=== PATIENT | female | born 1975 | race Caucasian/White ===

== ENCOUNTER 2019-07-18 03:13 | Emergency (ER) | payer OTHER, SELFPAY ==
[2019-07-18 03:14] VITALS: BP 148/91; PULSE 83; RESP 18; TEMP 36.4; O2SAT 96; BMI 61.4
--- NOTE | 2019-07-18 03:22 | ED_ITS ---
Entered by Linnea Davenport, acting as scribe for Hugh Fox MD HPI - Abdominal Pain General: Chief Complaint: Abdominal Pain Stated Complaint: ABD PAIN/N/V Time Seen by Provider: 07/18/19 03:20 Source: patient Mode of arrival: ambulatory Limitations: no limitations History of Present Illness: HPI narrative: 44 yo f came to the er with abd pain. Onset was last night. Pt states that she also has been vomiting, bloating and nausea as well. Pt states that she thinks that it is a gallbladder attack. Pt states that the pain is sharp and is located ruq. MD elicited complaint: abdominal pain Onset (ago): day(s) (last night) Pain Consistency: constant Location: RUQ Severity: mild Quality: sharp Radiation: R flank Migration to: no migration Exacerbating factors: nothing Relieving factors: nothing Associated Symptoms: Reports bloating, nausea and vomiting; Denies chills, dysuria and fever(s) Related Data: Date of Last Menstrual Period: 07/15/19 Patient : No Review of Systems General: Reports: other (negative unless marked) Const: Denies: fever, chills, body aches or change in appetite Eyes: Denies: blurry vision or eye discomfort ENMT: Denies: throat pain or dental pain Card: Denies: chest pain Resp: Denies: shortness of breath GI: Reports: abdominal pain, nausea, vomiting and bloating : Denies: painful urination Musc: Denies: neck pain or back pain Skin/Breast: Denies: rash Neuro: Denies: headache Psych: Denies: depression Kvng/Lymph: Denies: easy bruising All/Imm: Denies: hives PFSH ED PFSH: Statuses (acute, chronic, etc) shown below reflect problem list status as previously entered and may not be historically accurate Social History (Updated 07/12/19 @ 14:59 by Jeni Charles LPN) Smoking and tobacco status: former smoker Alcohol intake: current Alcohol intake frequency: holidays/special occasions only Alcohol type: wine Female Reproductive History: Date of last menstrual period: 07/15/19 Physical Exam Const: COMMON NORMALS: no apparent distress, oriented x3 and healthy appearing HENMT: COMMON NORMALS: normocephalic and head/scalp atraumatic HEAD & SCALP: normocephalic and atraumatic Eye: COMMON NORMALS: PERRL and EOMs intact bilaterally PUPIL: Yes PERRL Neck/C-Spine: COMMON NORMALS: full ROM and supple Chest: COMMONS NORMALS: inspection of chest normal and palpation of chest normal Resp: COMMON NORMALS: normal respiratory effort, no retractions, no use of accessory muscles and clear to auscultation bilaterally AUSCULTATION: clear to auscultation bilaterally Cardio: COMMON NORMALS: regular rate, regular rhythm and no murmurs RATE: regular rate RHYTHM: regular rhythm GI: COMMON NORMALS: normal to inspection, nondistended, normoactive bowel sounds, soft to palpation and no masses PALPATION: Yes soft OTHER: RUQ tenderness Extremity: COMMON NORMALS: normal to inspection and full ROM Neuro: COMMON NORMALS: oriented x3, moves all extremities and no focal motor deficits Psych: COMMON NORMALS: mental status grossly normal, thought process normal and cooperative THOUGHT PROCESS: normal thought process Skin: COMMON NORMALS: no rashes or lesions noted and no wounds GENERAL SKIN EXAM: no rashes or lesions noted Course Vital Signs: Vital signs: Vital Signs Temperature 97.5 F L 07/18/19 03:14 Pulse Rate 75 07/18/19 03:50 Respiratory Rate 20 H 07/18/19 03:50 Blood Pressure 148/91 07/18/19 03:14 Pulse Oximetry 95 07/18/19 03:50 MDM - Abdominal Pain MDM Narrative: Medical decision making narrative: Patient presents here with right upper quadrant pain that is likely biliary colic from a gallstone. Patient's pain is now resolved. She has no signs of cholecystitis. Patient is to follow-up with surgery as soon as possible. Patient is stable for discharge and is return if worsening. Lab Data: Labs: Lab Results 07/18/19 07/18/19 Range/Units 04:20 04:20 WBC 11.0 H (4.0-10.0) 10^3/ uL RBC 3.89 L (4.1-5.3) 10^6/u L Hgb 9.1 L (11.5-15.3) g/dL Hct 30.5 L (37.0-47.0) % MCV 78.4 L (81-99) fL MCH 23.4 L (28.0-34.0) pg MCHC 29.8 L (30.0-36.0) g/dL RDW 16.4 H (12.1-15.1) % Plt Count 266 (130-400) 10^3/c mm MPV 10.5 H (7.4-10.4) fL Neut % (Auto) 82.4 % Lymph % (Auto) 11.3 % [place] % (Auto) 3.7 % Eos % (Auto) 1.0 % Baso % (Auto) 0.6 % Neut # (Auto) 9.1 H (1.8-7.7) 10^3/u L Lymph # (Auto) 1.2 (0.8-4.8) 10^3/u L [place] # (Auto) 0.4 (0.2-0.9) 10^3/u L Eos # (Auto) 0.1 (0.0-0.8) 10^3/u L Baso # (Auto) 0.1 (0.0-0.1) 10^3/u L Nucleated RBC % (a uto) 0 % Nucleated RBCs # 0.0 /100WBC Sodium 135 L (136-145) mmol/L Potassium 4.3 (3.5-5.1) mmol/L Chloride 100 (98-107) mmol/L Carbon Dioxide 25 (22-29) mmol/L Anion Gap 14.3 (5-19) BUN 13 (6-20) mg/dL Creatinine 0.5 (0.5-0.9) mg/dL GFR Calculation 133.4 H (90-130) mL/min Glucose 211 H (65-115) mg/dL Calcium 9.4 (8.5-10.5) mg/dL Total Bilirubin 0.2 (0.15-1.2) mg/dL AST 13 (0-32) U/L ALT 19 (0-33) U/L Alkaline Phosphata se 87 (35-105) IU/L Total Protein 7.2 (6.6-8.7) g/dL Albumin 3.4 L (3.5-5.2) g/dL Globulin 3.8 (1.3-4.6) g/dL Lipase 24 (13-60) U/L Imaging Data ^: US: My impression: 2cm galstone at neck of gallbladder Discharge Plan Discharge Patient Disposition: Home, Self-Care Clinical Impression: Abdominal pain Qualifiers: Abdominal location: right upper quadrant Qualified Code(s): R10.11 - Right upper quadrant pain Gallstone Qualifiers: Cholecystitis presence: without cholecystitis Biliary obstruction: without biliary obstruction Qualified Code(s): K80.20 - Calculus of gallbladder without cholecystitis without obstruction Condition: Stable Prescriptions: [place] 5-325 mg tablet 1 tab PO Q6H PRN (Reason: pain) Qty: 14 RF: 0 Zofran 4 mg tablet 4 mg PO QID PRN (Reason: nausea and vomiting) Qty: 14 RF: 0 No Action azithromycin 250 mg tablet See Rx Instructions PO .COMPLEX Qty: 6 RF: 0 Discharge Orders: Discharge Order (Routine); Ordered 07/18/19 Ordered By: Hugh Fox Referrals: , [Primary Care Provider] - Natanael Gan MD [Physician] - 4-7 days Discharge Diet: Advance as tolerated Discharge Activity: Resume usual activity Patient Instructions: Biliary Colic (ED), Abdominal Pain (ED) Coding Level of Care Code ED Blister Rust Eradicator for Chg Fwd The documentation recorded by the Issac sin Stephanie Lyn, accurately reflects the service I personally performed and the decisions made by Dominique smith Korby, MD Jul 18, 2019 03:13
--- NOTE | 2019-07-18 03:24 | US_ITS ---
WS: [id number] RIGHT UPPER QUADRANT ULTRASOUND HISTORY: ruq abd pain COMPARISON: None available. Liver: 25.4 cm in length. Markedly enlarged liver with diffuse hepatic steatosis. Obscuration of the portal vein triads. No bile duct dilatation. Gallbladder: Normally distended gallbladder with a stone in the gallbladder neck measuring 2.4 cm. No pericholecystic fluid or gallbladder wall thickening. CBD: 5.0 mm Pancreas: Normal size and echogenicity. Right kidney: 13.1 cm in length. Normal echogenicity with no mass or hydronephrosis. Aorta and IVC: Unremarkable. No ascites. US/US gall bladder [id number] IMPRESSION: 1. Cholelithiasis without evidence for acute cholecystitis. 2. No bile duct dilatation. 3. Severe hepatic steatosis and hepatomegaly.
[2019-07-18] MEDS: sodium chloride 0.9% 1,000 ML 999 ML IV (03:38)
[2019-07-18] MEDS: ondansetron 2 mg/ML SDV 2 mL 4 MG IVP (03:40)
[2019-07-18 03:50] VITALS: PULSE 75; RESP 20; O2SAT 95
[2019-07-18 04:26] LABS: Basophils # 0.1 10^3/uL (0.0-0.1); Basophils % 0.6 %; Eosinophils # 0.1 10^3/uL (0.0-0.8); Hematocrit 30.5 % (37.0-47.0); Hemoglobin 9.1 g/dL (11.5-15.3); Lymphocytes # 1.2 10^3/uL (0.8-4.8); Lymphocytes % 11.3 %; Mean Corpuscular HGB Conc 29.8 g/dL (30.0-36.0); Mean Corpuscular Hemoglobin 23.4 pg (28.0-34.0); Mean Corpuscular Volume 78.4 fL (81-99); Mean Platelet Volume 10.5 fL (7.4-10.4); Monocytes # 0.4 10^3/uL (0.2-0.9); Monocytes % 3.7 %; Neutrophils # 9.1 10^3/uL (1.8-7.7); Neutrophils % 82.4 %; Nucleated Red Blood Cells % 0 %; Platelet Count 266 10^3/cmm (130-400); Red Blood Count 3.89 10^6/uL (4.1-5.3); Red Cell Distribution Width 16.4 % (12.1-15.1)
[2019-07-18 04:40] LABS: Alanine Aminotransferase 19 U/L (0-33); Albumin Level 3.4 g/dL (3.5-5.2); Alkaline Phosphatase 87 IU/L (35-105); Anion Gap 14.3 (5-19); Aspartate Amino Transferase 13 U/L (0-32); Blood Urea Nitrogen 13 mg/dL (6-20); Calcium 9.4 mg/dL (8.5-10.5); Carbon Dioxide 25 mmol/L (22-29); Chloride 100 mmol/L (98-107); Globulin 3.8 g/dL (1.3-4.6); Glomerular Filtration Rate 133.4 mL/min (90-130); Glucose 211 mg/dL (65-115); Lipase 24 U/L (13-60); Potassium 4.3 mmol/L (3.5-5.1); Sodium 135 mmol/L (136-145); Total Bilirubin 0.2 mg/dL (0.15-1.2); Total Protein 7.2 g/dL (6.6-8.7)
[2019-07-18 05:02] VITALS: PULSE 94; RESP 16; O2SAT 95
--- NOTE | 2019-07-19 11:07 | DCPLANNER ---
video manager had message to schedule a follow up appointment with Chief Cruiser. video manager called the clinic, spoke with Anika, patient has an appointment scheduled for Tuesday July 23, [address] shaye 8:[address] Gan. Clinic will call patient with appointment information.
--- NOTE | 2019-08-07 14:44 | DCPLANNER ---
Patient did attend appointment scheduled for 07.23.[address] Gan.
== END 2019-07-18 05:03 | disposition home or self-care (01) ==
PROVIDERS: Emergency Provider Emergency Medicine
DX: K80.20 Calculus of gallbladder without cholecystitis without obstruction (principal); Z87.891 Personal history of nicotine dependence
CPT/HCPCS: 36415; 76705; 80053; 83690; 85025; 96360; 96361; 96374; 96375; 99283; J2405; J7030

== ENCOUNTER → 2019-08-20 10:25 | Outpatient (BNVA) | payer OTHER, SELFPAY | PROVIDERS: Visit Provider Family Medicine | DX: D50.8 Other iron deficiency anemias (principal); R73.9 Hyperglycemia, unspecified; R03.0 Elevated blood-pressure reading, without diagnosis of hypertension | CPT/HCPCS: 82728; 83036; 83540; 83550 ==

== ENCOUNTER → 2019-10-11 11:08 | Outpatient (BNVA) | payer OTHER, SELFPAY | PROVIDERS: Visit Provider Family Medicine | DX: I10 Essential (primary) hypertension (principal); D50.8 Other iron deficiency anemias; D50.9 Iron deficiency anemia, unspecified; E11.9 Type 2 diabetes mellitus without complications; L91.8 Other hypertrophic disorders of the skin | CPT/HCPCS: 80053; 80061; 82044; 82728; 83550; 85025 ==

== ENCOUNTER → 2019-11-20 10:25 | Outpatient (BNVA) | payer OTHER, SELFPAY | PROVIDERS: PCP Family Medicine; Visit Provider Family Medicine | DX: I10 Essential (primary) hypertension (principal); D50.8 Other iron deficiency anemias; E11.9 Type 2 diabetes mellitus without complications | CPT/HCPCS: 80053; 82044; 82728; 83036; 83550; 85025 ==

== ENCOUNTER 2020-01-05 02:01 | Emergency (ER) | payer SELFPAY ==
[2020-01-05 02:07] VITALS: PULSE 82; RESP 20; TEMP 36.3; O2SAT 97; BMI 55.7
--- NOTE | 2020-01-05 02:07 | USR_ITS ---
PROCEDURE INFORMATION: Exam: US Abdomen, Limited; Right Upper Quadrant Exam date and time: 01/05/2020 3:39 AM Age: 44 years old Clinical indication: Abdominal pain; Acute; Prior surgery; Surgery date: 6+ months; Surgery type: Appendix; Additional info: Ruq pain TECHNIQUE: Imaging protocol: US abdomen. Real time ultrasound with image documentation. Limited exam focused on the right upper quadrant. COMPARISON: US gall bladder [id number] 07/18/2019 4:24 AM FINDINGS: Liver: Hepatic parenchymal echotexture is normal. No visible mass. Gallbladder: There is a 2.6 cm shadowing gallstone in the gallbladder neck. The gallbladder lumen is distended. There is diffuse borderline thickening of the gallbladder wall. No pericholecystic fluid. Sonographic Tejada sign is positive. Common bile duct: The common bile duct is nondilated measuring 5 mm. Pancreas: The visible portion of the pancreas is normal. Right kidney: The right kidney is unremarkable. Aorta: The visible portion of the aorta is unremarkable. US/US gall bladder [id number] IMPRESSION: Distended gallbladder with a borderline thickened wall containing a solitary large stone. Findings are similar to those seen on 07/18/2019. Findings are equivocal for acute cholecystitis.
--- NOTE | 2020-01-05 02:08 | W.ED.ABDPA2 ---
HPI - Abdominal Pain General: Chief Complaint: Abdominal Pain Stated Complaint: r side abd/back pain Time Seen by Provider: 01/05/20 02:04 Source: patient Mode of arrival: ambulatory Limitations: no limitations History of Present Illness: HPI narrative: 44-year-old female who has history gallstones states she has been having right upper quadrant pain over the last 6 hours. States pain is sharp in nature. States she had a gallbladder attack from gallstones earlier in the year. She denies any fever. She has had nausea with no vomiting. Denies any worsening improving factors. MD elicited complaint: abdominal pain Pertinent past history: none Onset (ago): hour(s) Pain Consistency: constant Location: RUQ Severity: moderate Quality: stabbing Radiation: none Migration to: no migration Exacerbating factors: nothing Relieving factors: nothing Associated Symptoms: Denies chills, dysuria and fever(s) Related Data: Date of Last Menstrual Period: 07/15/19 Review of Systems Const: Denies: fever(s), chills, body aches or change in appetite Eyes: Denies: blurry vision or eye discomfort ENMT: Denies: throat pain or dental pain Card: Denies: chest pain Resp: Denies: dyspnea GI: Reports: abdominal pain : Denies: dysuria Musc: Denies: neck pain or back pain Skin/Breast: Denies: rash Neuro: Denies: headache(s) Psych: Denies: depression Kvng/Lymph: Denies: easy bruising All/Imm: Denies: urticaria PFSH ED PFSH: Medical History Arthritis of both knees Benign essential HTN Colon polyps Fatty liver Gallstone Irritable bowel syndrome with constipation and diarrhea Obesity PCOS (polycystic ovarian syndrome) Type 2 diabetes mellitus, without long-term current use of insulin Surgical History History of appendectomy (~2018) History of tonsillectomy and adenoidectomy Family History Father Cancer colon Other CAD (coronary artery disease) Diabetes Denies family history of Anesthesia complication Bleeding disorder Social History Smoking and tobacco status: former smoker Alcohol intake: current Alcohol intake frequency: holidays/special occasions only Alcohol type: wine Adopted: No Caregiver/support person: Yes Lives independently: Yes Household members: none Housing: Apartment Marital status: Single service: No Current occupational exposures/hazards: No Pets and animals: No History of recent travel: No Sexually active: No Current gender identity: Female Emmy/Episcopalian: Evangelical Special emmy needs: No Agree to transfusion: No Financial difficulty paying for basics: Decline to Answer Female Reproductive History: Date of last menstrual period: 07/15/19 Physical Exam Const: COMMON NORMALS: no acute distress, patient oriented x3 and healthy appearing HENMT: COMMON NORMALS: normocephalic and atraumatic HEAD & SCALP: normocephalic and atraumatic Eye: COMMON NORMALS: Equal, round and reactive pupils present and EOMs intact bilaterally PUPIL: Yes Equal, round and reactive pupils present Neck/C-Spine: COMMON NORMALS: full ROM and supple Chest: COMMONS NORMALS: normal inspection of the chest and normal palpation of entire chest wall Resp: COMMON NORMALS: normal respiratory effort, No retractions, No use of accessory muscles and clear to auscultation bilaterally AUSCULTATION: clear to auscultation bilaterally Cardio: COMMON NORMALS: regular rate, regular rhythm and No murmurs present (Cardio) RATE: regular rate RHYTHM: regular rhythm GI: COMMON NORMALS: Normal to inspection, nondistended, normoactive bowel sounds present, Soft to palpation and no masses PALPATION: Yes Soft to palpation and Yes Tenderness to palpation present (GI) Details: RUQ Extremity: COMMON NORMALS: normal to inspection and full ROM Neuro: COMMON NORMALS: patient oriented x3, moves all extremities and no focal motor deficits Psych: COMMON NORMALS: mental status grossly normal, Normal thought process present and cooperative THOUGHT PROCESS: Normal thought process present Skin: COMMON NORMALS: no rashes or lesions noted and no wounds GENERAL SKIN EXAM: no rashes or lesions noted Course Vital Signs: Vital signs: Vital Signs Temperature 97.4 F L 01/05/20 02:07 Pulse Rate 82 01/05/20 02:07 Respiratory Rate 16 01/05/20 02:34 Blood Pressure 136/69 01/05/20 02:10 Pulse Oximetry 92 01/05/20 03:02 MDM - Abdominal Pain MDM Narrative: Medical decision making narrative: Patient presents here with biliary colic ultrasound showed a gallstone in her gallbladder neck. No signs of cholecystitis. Patient has no fever and is well-appearing here. Patient is to follow-up with Dr. Díaz in 2 to 4 days. Will prescribe her hydrocodone for pain and she is to return if worsening. She understands agrees to plan. Lab Data: Labs: Lab Results 01/05/20 01/05/20 Range/Units 02:15 02:15 WBC 15.5 H (4.0-10.0) 10^3/ uL RBC 4.24 (4.1-5.3) 10^6/u L Hgb 11.4 L (11.5-15.3) g/dL Hct 37.0 (37.0-47.0) % MCV 87.3 (81-99) fL MCH 26.9 L (28.0-34.0) pg MCHC 30.8 (30.0-36.0) g/dL RDW 14.5 (12.1-15.1) % Plt Count 291 (130-400) 10^3/c mm MPV 11.2 H (7.4-10.4) fL Neut % (Auto) 81.3 % Lymph % (Auto) 12.3 % [place] % (Auto) 3.4 % Eos % (Auto) 1.2 % Baso % (Auto) 0.6 % Neut # (Auto) 12.55 H (1.8-7.7) 10^3/u L Lymph # (Auto) 1.9 (0.8-4.8) 10^3/u L [place] # (Auto) 0.5 (0.2-0.9) 10^3/u L Eos # (Auto) 0.2 (0.0-0.8) 10^3/u L Baso # (Auto) 0.1 (0.0-0.1) 10^3/u L Nucleated RBC % (a uto) 0 % Nucleated RBCs # 0.0 /100WBC Sodium 138 (136-145) mmol/L Potassium 3.9 (3.5-5.1) mmol/L Chloride 98 (98-107) mmol/L Carbon Dioxide 29 (22-29) mmol/L Anion Gap 14.9 (5-19) BUN 11 (6-20) mg/dL Creatinine 0.5 (0.5-0.9) mg/dL GFR Calculation 133.4 H (90-130) mL/min Glucose 191 H (65-115) mg/dL Calculated Osmolal ity 287 (285-295) mOsm/k g Calcium 8.9 (8.5-10.5) mg/dL Total Bilirubin 0.2 (0.15-1.2) mg/dL AST 16 (0-32) U/L ALT 22 (0-33) U/L Alkaline Phosphata se 94 (35-105) IU/L Total Protein 8.3 (6.6-8.7) g/dL Albumin 4.4 (3.5-5.2) g/dL Globulin 3.9 (1.3-4.6) g/dL Lipase 28 (13-60) U/L Discharge Plan Discharge Patient Disposition: Home Clinical Impression: Gallstone Qualifiers: Cholecystitis presence: without cholecystitis Biliary obstruction: without biliary obstruction Qualified Code(s): K80.20 - Calculus of gallbladder without cholecystitis without obstruction Condition: Stable Prescriptions: [place] 5-325 mg tablet 1 tab PO Q6H PRN (Reason: pain) Qty: 14 RF: 0 ondansetron 4 mg tablet,disintegrating 4 mg PO Q6H PRN (Reason: nausea and vomiting) Qty: 14 RF: 0 No Action atorvastatin 20 mg tablet 20 mg PO .po q hs Qty: 30 RF: 1 lidocaine-epinephrine (PF) 2 %-1:200,000 solution 7 ml Infiltration ONCE PRN (Reason: anesthesia) Qty: 1 RF: 0 povidone-iodine [Betadine Swabsticks] 10 % swab 1 applic topical ONCE PRN (Reason: disinfection) Qty: 1 RF: 0 ferrous sulfate [Feosol] 325 mg (65 mg iron) tablet 325 mg PO BID RF: 0 hydrochlorothiazide 25 mg tablet 25 mg PO DAILY Qty: 90 RF: 1 lisinopril 5 mg tablet 5 mg PO DAILY Qty: 90 RF: 1 Ozempic 0.25 mg or 0.5 mg(2 mg/1.5 mL) pen injector 0.25 mg SUBCUT .weekly Qty: 1.5 RF: 2 Discharge Orders: Discharge Order (Routine); Ordered 01/05/20 Ordered By: Hugh Fox Referrals: Vida Mayer DO [Primary Care Provider] - Discharge Diet: Advance as tolerated Discharge Activity: Resume usual activity Patient Instructions: Biliary Colic (ED) Coding Level of Care Code ED Dinkey Locomotive Engineer for Chg Fwd Exam Comprehensive
[2020-01-05 02:10] VITALS: BP 136/69
[2020-01-05 02:34] VITALS: RESP 16
[2020-01-05] MEDS: morphine 4 mg/mL SDV 1 mL IVP (02:34)
[2020-01-05] MEDS: ondansetron 2 mg/ML SDV 2 mL 4 MG IVP (02:36)
[2020-01-05] MEDS: sodium chloride 0.9% 1,000 ML 999 ML IV (02:36)
[2020-01-05 02:37] LABS: Basophils # 0.1 10^3/uL (0.0-0.1); Basophils % 0.6 %; Eosinophils # 0.2 10^3/uL (0.0-0.8); Eosinophils % 1.2 %; Hemoglobin 11.4 g/dL (11.5-15.3); Lymphocytes # 1.9 10^3/uL (0.8-4.8); Lymphocytes % 12.3 %; Mean Corpuscular HGB Conc 30.8 g/dL (30.0-36.0); Mean Corpuscular Hemoglobin 26.9 pg (28.0-34.0); Mean Corpuscular Volume 87.3 fL (81-99); Mean Platelet Volume 11.2 fL (7.4-10.4); Monocytes # 0.5 10^3/uL (0.2-0.9); Monocytes % 3.4 %; Neutrophils # 12.55 10^3/uL (1.8-7.7); Neutrophils % 81.3 %; Nucleated Red Blood Cells % 0 %; Platelet Count 291 10^3/cmm (130-400); Red Blood Count 4.24 10^6/uL (4.1-5.3); Red Cell Distribution Width 14.5 % (12.1-15.1); White Blood Count 15.5 10^3/uL (4.0-10.0)
[2020-01-05 02:51] VITALS: O2SAT 88
[2020-01-05 02:59] LABS: Alanine Aminotransferase 22 U/L (0-33); Albumin Level 4.4 g/dL (3.5-5.2); Alkaline Phosphatase 94 IU/L (35-105); Anion Gap 14.9 (5-19); Aspartate Amino Transferase 16 U/L (0-32); Blood Urea Nitrogen 11 mg/dL (6-20); Calcium 8.9 mg/dL (8.5-10.5); Carbon Dioxide 29 mmol/L (22-29); Chloride 98 mmol/L (98-107); Globulin 3.9 g/dL (1.3-4.6); Glomerular Filtration Rate 133.4 mL/min (90-130); Glucose 191 mg/dL (65-115); Lipase 28 U/L (13-60); Osmolality Calculated 287 mOsm/kg (285-295); Potassium 3.9 mmol/L (3.5-5.1); Sodium 138 mmol/L (136-145); Total Bilirubin 0.2 mg/dL (0.15-1.2); Total Protein 8.3 g/dL (6.6-8.7)
[2020-01-05 03:02] VITALS: O2SAT 92
[2020-01-05 03:58] VITALS: BP 120/75
--- NOTE | 2020-01-09 09:33 | DCPLANNER ---
manager of internal had message to schedule a follow up appointment for patient with Dr. Díaz. This trimming caser had message from Savanah Gonzalez, stating that she spoke with patient, and patient stated that she would think about referral and would call Savanah back about referral. This trimming caser called patient and was unable to reach patient.
== END 2020-01-05 04:26 | disposition home or self-care (01) ==
PROVIDERS: Emergency Provider Emergency Medicine; PCP Family Medicine
DX: K80.20 Calculus of gallbladder without cholecystitis without obstruction (principal); I10 Essential (primary) hypertension; E11.9 Type 2 diabetes mellitus without complications; Z87.891 Personal history of nicotine dependence
CPT/HCPCS: 12345; 76705; 80053; 83690; 85025; 96361; 96374; 96375; 99283; J2270; J2405; J7030

== ENCOUNTER 2020-02-20 02:33 | Emergency (ER) | payer SELFPAY ==
[2020-02-20 02:40] VITALS: BP 168/98; PULSE 83; RESP 18; TEMP 36.6; O2SAT 93; BMI 56.7
--- NOTE | 2020-02-20 02:53 | W.ED.ABDPA2 ---
HPI - Abdominal Pain General: Chief Complaint: Abdominal Pain Stated Complaint: abd pain/throwing up Time Seen by Provider: 02/20/20 02:39 Source: patient Mode of arrival: ambulatory Limitations: no limitations History of Present Illness: HPI narrative: 44-year-old female states she has a history of gallstones. She states that she woke up this morning at midnight has been having right upper quadrant abdominal pain since then. She states her pain is sharp in nature. States the pain is currently a 7 out of 10. She states she is also had multiple episodes of vomiting. Denies any worsening or improving factors. Denies any fevers. MD elicited complaint: abdominal pain Onset (ago): hour(s) Associated Symptoms: Reports nausea and vomiting; Denies chills, dysuria and fever(s) Related Data: Date of Last Menstrual Period: 02/20/20 Review of Systems Const: Denies: fever(s), chills, body aches or change in appetite Eyes: Denies: blurry vision or eye discomfort ENMT: Denies: throat pain or dental pain Card: Denies: chest pain Resp: Denies: dyspnea GI: Reports: abdominal pain, nausea and vomiting : Denies: dysuria Musc: Denies: neck pain or back pain Skin/Breast: Denies: rash Neuro: Denies: headache(s) Psych: Denies: depression Kvng/Lymph: Denies: easy bruising All/Imm: Denies: urticaria PFS ED PFSH: Medical History (Updated 02/20/20 @ 04:53 by Hugh Fox MD) Arthritis of both knees Benign essential HTN Colon polyps Fatty liver Gallstone Irritable bowel syndrome with constipation and diarrhea Obesity PCOS (polycystic ovarian syndrome) Type 2 diabetes mellitus, without long-term current use of insulin Surgical History History of appendectomy (~2018) History of tonsillectomy and adenoidectomy Family History Father Cancer colon Other CAD (coronary artery disease) Diabetes Denies family history of Anesthesia complication Bleeding disorder Social History Smoking and tobacco status: former smoker Alcohol intake: current Alcohol intake frequency: holidays/special occasions only Alcohol type: wine Adopted: No Caregiver/support person: Yes Lives independently: Yes Household members: none Housing: Apartment Marital status: Single service: No Current occupational exposures/hazards: No Pets and animals: No History of recent travel: No Sexually active: No Current gender identity: Female Emmy/Spiritism: Congregational Special emmy needs: No Agree to transfusion: No Financial difficulty paying for basics: Decline to Answer Female Reproductive History: Date of last menstrual period: 02/20/20 Physical Exam Const: COMMON NORMALS: no acute distress, patient oriented x3 and healthy appearing HENMT: COMMON NORMALS: normocephalic and atraumatic HEAD & SCALP: normocephalic and atraumatic Eye: COMMON NORMALS: Equal, round and reactive pupils present and EOMs intact bilaterally PUPIL: Yes Equal, round and reactive pupils present Neck/C-Spine: COMMON NORMALS: full ROM and supple Chest: COMMONS NORMALS: normal inspection of the chest and normal palpation of entire chest wall Resp: COMMON NORMALS: normal respiratory effort, No retractions, No use of accessory muscles and clear to auscultation bilaterally AUSCULTATION: clear to auscultation bilaterally Cardio: COMMON NORMALS: regular rate, regular rhythm and No murmurs present (Cardio) RATE: regular rate RHYTHM: regular rhythm GI: COMMON NORMALS: Normal to inspection, nondistended, normoactive bowel sounds present, Soft to palpation and no masses PALPATION: Yes Soft to palpation and Yes Tenderness to palpation present (GI) Details: RUQ Extremity: COMMON NORMALS: normal to inspection and full ROM Neuro: COMMON NORMALS: patient oriented x3, moves all extremities and no focal motor deficits Psych: COMMON NORMALS: mental status grossly normal, Normal thought process present and cooperative THOUGHT PROCESS: Normal thought process present Skin: COMMON NORMALS: no rashes or lesions noted and no wounds GENERAL SKIN EXAM: no rashes or lesions noted Course Vital Signs: Vital signs: Vital Signs Temperature 97.8 F 02/20/20 02:40 Pulse Rate 65 02/20/20 04:30 Respiratory Rate 16 02/20/20 04:30 Blood Pressure 99/56 02/20/20 04:30 Pulse Oximetry 98 02/20/20 04:30 MDM - Abdominal Pain MDM Narrative: Medical decision making narrative: Patient presents here with abdominal pain likely due to her gallstones. She has no signs of cholecystitis. Her pain is much improved and her nausea is improved as well. She is stable for discharge and is to follow-up with surgeon in 3 to 5 days return if worsening. She understands and agrees the plan. Lab Data: Labs: Lab Results 02/20/20 02/20/20 02/20/20 Range/Units 02:59 03:12 03:12 WBC 13.9 H (4.0-10.0) 10^3/ uL RBC 4.28 (4.1-5.3) 10^6/u L Hgb 11.7 (11.5-15.3) g/dL Hct 37.2 (37.0-47.0) % MCV 86.9 (81-99) fL MCH 27.3 L (28.0-34.0) pg MCHC 31.5 (30.0-36.0) g/dL RDW 14.6 (12.1-15.1) % Plt Count 281 (130-400) 10^3/c mm MPV 11.1 H (7.4-10.4) fL Neut % (Auto) 76.6 % Lymph % (Auto) 16.0 % [place] % (Auto) 4.0 % Eos % (Auto) 2.3 % Baso % (Auto) 0.7 % Neut # (Auto) 10.63 H (1.8-7.7) 10^3/u L Lymph # (Auto) 2.2 (0.8-4.8) 10^3/u L [place] # (Auto) 0.6 (0.2-0.9) 10^3/u L Eos # (Auto) 0.3 (0.0-0.8) 10^3/u L Baso # (Auto) 0.1 (0.0-0.1) 10^3/u L Nucleated RBC % (a uto) 0 % Nucleated RBCs # 0.0 /100WBC Sodium 138 (136-145) mmol/L Potassium 4.2 (3.5-5.1) mmol/L Chloride 98 (98-107) mmol/L Carbon Dioxide 26 (22-29) mmol/L Anion Gap 18.2 (5-19) BUN 12 (6-20) mg/dL Creatinine 0.6 (0.5-0.9) mg/dL GFR Calculation 108.1 (90-130) mL/min Glucose 155 H (65-115) mg/dL Calculated Osmolal ity 285 (285-295) mOsm/k g Calcium 9.6 (8.5-10.5) mg/dL Total Bilirubin 0.2 (0.15-1.2) mg/dL AST 16 (0-32) U/L ALT 22 (0-33) U/L Alkaline Phosphata se 96 (35-105) IU/L Total Protein 7.7 (6.6-8.7) g/dL Albumin 4.0 (3.5-5.2) g/dL Globulin 3.7 (1.3-4.6) g/dL Lipase 65 H (13-60) U/L HCG, Qual (Negative) Urine Color Yellow (Yellow) Urine Appearance Clear (CLEAR) Urine pH 5 (5-7) Ur Specific Gravit y 1.030 (1.005-1.030) Urine Protein Neg (Negative) Urine Glucose (UA) Norm (Normal) Urine Ketones Negative (Negative) Urine Blood 3+ H (Negative) Urine Nitrate Negative (Negative) Urine Bilirubin Neg (Negative) Urine Urobilinogen Norm (Negative) mg/dL Ur Leukocyte Samantha ase Negative (Negative) Urine RBC 0-4 H (0-2) /hpf Urine WBC 0-4 H (0-5) /hpf Ur Squamous Epith Cells 5-10 H (0-5) /hpf Amorphous Sediment Not Reportable Urine Bacteria 1+ H (NONE) /hpf Urine Mucus 2+ /hpf 02/20/20 Range/Units 03:12 WBC (4.0-10.0) 10^3/ uL RBC (4.1-5.3) 10^6/u L Hgb (11.5-15.3) g/dL Hct (37.0-47.0) % MCV (81-99) fL MCH (28.0-34.0) pg MCHC (30.0-36.0) g/dL RDW (12.1-15.1) % Plt Count (130-400) 10^3/c mm MPV (7.4-10.4) fL Neut % (Auto) % Lymph % (Auto) % [place] % (Auto) % Eos % (Auto) % Baso % (Auto) % Neut # (Auto) (1.8-7.7) 10^3/u L Lymph # (Auto) (0.8-4.8) 10^3/u L [place] # (Auto) (0.2-0.9) 10^3/u L Eos # (Auto) (0.0-0.8) 10^3/u L Baso # (Auto) (0.0-0.1) 10^3/u L Nucleated RBC % (a uto) % Nucleated RBCs # /100WBC Sodium (136-145) mmol/L Potassium (3.5-5.1) mmol/L Chloride (98-107) mmol/L Carbon Dioxide (22-29) mmol/L Anion Gap (5-19) BUN (6-20) mg/dL Creatinine (0.5-0.9) mg/dL GFR Calculation (90-130) mL/min Glucose (65-115) mg/dL Calculated Osmolal ity (285-295) mOsm/k g Calcium (8.5-10.5) mg/dL Total Bilirubin (0.15-1.2) mg/dL AST (0-32) U/L ALT (0-33) U/L Alkaline Phosphata se (35-105) IU/L Total Protein (6.6-8.7) g/dL Albumin (3.5-5.2) g/dL Globulin (1.3-4.6) g/dL Lipase (13-60) U/L HCG, Qual Negative (Negative) Urine Color (Yellow) Urine Appearance (CLEAR) Urine pH (5-7) Ur Specific Gravit y (1.005-1.030) Urine Protein (Negative) Urine Glucose (UA) (Normal) Urine Ketones (Negative) Urine Blood (Negative) Urine Nitrate (Negative) Urine Bilirubin (Negative) Urine Urobilinogen (Negative) mg/dL Ur Leukocyte Samantha ase (Negative) Urine RBC (0-2) /hpf Urine WBC (0-5) /hpf Ur Squamous Epith Cells (0-5) /hpf Amorphous Sediment Urine Bacteria (NONE) /hpf Urine Mucus /hpf Imaging Data ^: CT Abd/Pel: Radiologist's impression: [address] [address] [address] Scan Report Signed Patient: Ana Osman Unit #: [id number] : 1975 Age/Sex: 44 / F ADM Date: 02/20/20 Loc: ER Room/Bed: Attending Dr: Ordering Provider/Ordering MD: Hugh Fox MD Date of Service: 02/20/20 Procedure(s): CT abdomen pelvis w con* [id number] Accession Number(s): [id number] Report Number: [id number] PROCEDURE INFORMATION: Exam: CT Abdomen And Pelvis With Contrast Exam date and time: 02/20/2020 3:42 AM Age: 44 years old Clinical indication: Nausea and vomiting; Abdominal pain; Generalized; Prior surgery; Surgery type: Appy; Additional info: Abd pain TECHNIQUE: Imaging protocol: Computed tomography of the abdomen and pelvis with intravenous contrast. Radiation optimization: All CT scans at this facility use at least one of these dose optimization techniques: automated exposure control; mA and/or kV adjustment per patient size (includes targeted exams where dose is matched to clinical indication); or iterative reconstruction. Contrast material: OMNI 300; Contrast volume: 95 ml; Contrast route: INTRAVENOUS (IV); COMPARISON: US gall bladder [id number] 01/05/2020 3:16 AM RADIATION DOSE METRICS: Total DLP (mGy-cm): 1830.03 FINDINGS: Lungs: Mild parenchymal scarring or atelectasis in the right lower lung. No pleural fluid. Liver: There is fatty infiltration of the liver. Gallbladder and bile ducts: Suspect noncalcified gallstone(s) in the region of the gallbladder neck, biliary sludge might also have this appearance. Ultrasound would be more specific/sensitive for detecting gallstones, if clinically needed. Possible mild gallbladder wall thickening/edema. No definite pericholecystic fluid or inflammation. No biliary tree dilation. Pancreas: Unremarkable. Spleen: Unremarkable. Adrenals: There is a 15-16 mm nodule in the left adrenal gland. Possible 7-8 mm nodule in the right adrenal gland. Statistically, these are most likely a benign adenomas. In addition, they measure essentially water attenuation. Kidneys and ureters: No hydronephrosis of either kidney. No visible ureteral calculus. Possible 5 mm cyst in the lateral mid right kidney, too small to accurately characterize by CT. Stomach and bowel: There are no CT findings to strongly suggest diverticulitis. Appendix: Reportedly, there has been prior appendectomy. Intraperitoneal space: No free air, ascites, or bowel distention. Vasculature: No evidence for abdominal aortic aneurysm. Lymph nodes: No retroperitoneal adenopathy. Bladder: Unremarkable as visualized. Reproductive: 3.2 cm left ovarian cyst. A physiologic cyst is still possible, although other etiologies are not excluded. Ultrasound could further evaluate these ovarian findings if felt clinically indicated, and could also be used for appropriate follow-up, to insure against a persistent or enlarging lesion/neoplasm. No significant cul-de-sac fluid. Bones/joints: No significant acute finding. Soft tissues: Small umbilical hernia, containing only fat. CT/CT abdomen pelvis w con* [id number] IMPRESSION: 1. Suspected cholelithiasis, see additional details above. 2. 3.2 cm left ovarian cyst, see above discussion. 3. No free air or bowel distention. 4. Small adrenal nodules, see above. 5. Other findings discussed above. Discharge Plan Discharge Patient Disposition: Home Clinical Impression: Abdominal pain Qualifiers: Abdominal location: right upper quadrant Qualified Code(s): R10.11 - Right upper quadrant pain Condition: Stable Prescriptions: [place] 5-325 mg tablet 1 tab PO Q6H PRN (Reason: pain) Qty: 14 RF: 0 Reglan 10 mg tablet 10 mg PO Q6H PRN (Reason: nausea and vomiting) Qty: 20 RF: 0 No Action atorvastatin 20 mg tablet 20 mg PO .po q hs Qty: 30 RF: 1 lidocaine-epinephrine (PF) 2 %-1:200,000 solution 7 ml Infiltration ONCE PRN (Reason: anesthesia) Qty: 1 RF: 0 povidone-iodine [Betadine Swabsticks] 10 % swab 1 applic topical ONCE PRN (Reason: disinfection) Qty: 1 RF: 0 ferrous sulfate [Feosol] 325 mg (65 mg iron) tablet 325 mg PO BID RF: 0 hydrochlorothiazide 25 mg tablet 25 mg PO DAILY Qty: 90 RF: 1 lisinopril 5 mg tablet 5 mg PO DAILY Qty: 90 RF: 1 Ozempic 0.25 mg or 0.5 mg(2 mg/1.5 mL) pen injector 0.25 mg SUBCUT .weekly Qty: 1.5 RF: 2 [place] 5-325 mg tablet 1 tab PO Q6H PRN (Reason: pain) Qty: 14 RF: 0 ondansetron 4 mg tablet,disintegrating 4 mg PO Q6H PRN (Reason: nausea and vomiting) Qty: 14 RF: 0 Discharge Orders: Discharge Order (Routine); Ordered 02/20/20 Ordered By: Hugh Fox Referrals: Natanael Gan MD [Physician] - 1-3 days Vida Mayer DO [Primary Care Provider] - Discharge Diet: Advance as tolerated Discharge Activity: Resume usual activity Patient Instructions: Abdominal Pain (ED) Coding Level of Care Code ED Computer [employer] Markup Clerk for Chg Fwd Exam Comprehensive
[2020-02-20 03:07] VITALS: BP 142/97; PULSE 78; RESP 16; O2SAT 94
[2020-02-20 03:22] LABS: Basophils # 0.1 10^3/uL (0.0-0.1); Basophils % 0.7 %; Eosinophils # 0.3 10^3/uL (0.0-0.8); Eosinophils % 2.3 %; Hematocrit 37.2 % (37.0-47.0); Hemoglobin 11.7 g/dL (11.5-15.3); Lymphocytes # 2.2 10^3/uL (0.8-4.8); Mean Corpuscular HGB Conc 31.5 g/dL (30.0-36.0); Mean Corpuscular Hemoglobin 27.3 pg (28.0-34.0); Mean Corpuscular Volume 86.9 fL (81-99); Mean Platelet Volume 11.1 fL (7.4-10.4); Monocytes # 0.6 10^3/uL (0.2-0.9); Neutrophils # 10.63 10^3/uL (1.8-7.7); Neutrophils % 76.6 %; Nucleated Red Blood Cells % 0 %; Platelet Count 281 10^3/cmm (130-400); Red Blood Count 4.28 10^6/uL (4.1-5.3); Red Cell Distribution Width 14.6 % (12.1-15.1); White Blood Count 13.9 10^3/uL (4.0-10.0)
[2020-02-20] MEDS: sodium chloride 0.9% 1,000 ML 999 ML IV (03:23)
[2020-02-20 03:24] VITALS: RESP 16; O2SAT 97
[2020-02-20] MEDS: ondansetron 2 mg/ML SDV 2 mL 4 MG IVP (03:24)
[2020-02-20] MEDS: morphine 4 mg/mL SDV 1 mL IVP (03:24)
--- NOTE | 2020-02-20 03:29 | CTR_ITS ---
PROCEDURE INFORMATION: Exam: CT Abdomen And Pelvis With Contrast Exam date and time: 02/20/2020 3:42 AM Age: 44 years old Clinical indication: Nausea and vomiting; Abdominal pain; Generalized; Prior surgery; Surgery type: Appy; Additional info: Abd pain TECHNIQUE: Imaging protocol: Computed tomography of the abdomen and pelvis with intravenous contrast. Radiation optimization: All CT scans at this facility use at least one of these dose optimization techniques: automated exposure control; mA and/or kV adjustment per patient size (includes targeted exams where dose is matched to clinical indication); or iterative reconstruction. Contrast material: OMNI 300; Contrast volume: 95 ml; Contrast route: INTRAVENOUS (IV); COMPARISON: US gall bladder [id number] 01/05/2020 3:16 AM RADIATION DOSE METRICS: Total DLP (mGy-cm): 1830.03 FINDINGS: Lungs: Mild parenchymal scarring or atelectasis in the right lower lung. No pleural fluid. Liver: There is fatty infiltration of the liver. Gallbladder and bile ducts: Suspect noncalcified gallstone(s) in the region of the gallbladder neck, biliary sludge might also have this appearance. Ultrasound would be more specific/sensitive for detecting gallstones, if clinically needed. Possible mild gallbladder wall thickening/edema. No definite pericholecystic fluid or inflammation. No biliary tree dilation. Pancreas: Unremarkable. Spleen: Unremarkable. Adrenals: There is a 15-16 mm nodule in the left adrenal gland. Possible 7-8 mm nodule in the right adrenal gland. Statistically, these are most likely a benign adenomas. In addition, they measure essentially water attenuation. Kidneys and ureters: No hydronephrosis of either kidney. No visible ureteral calculus. Possible 5 mm cyst in the lateral mid right kidney, too small to accurately characterize by CT. Stomach and bowel: There are no CT findings to strongly suggest diverticulitis. Appendix: Reportedly, there has been prior appendectomy. Intraperitoneal space: No free air, ascites, or bowel distention. Vasculature: No evidence for abdominal aortic aneurysm. Lymph nodes: No retroperitoneal adenopathy. Bladder: Unremarkable as visualized. Reproductive: 3.2 cm left ovarian cyst. A physiologic cyst is still possible, although other etiologies are not excluded. Ultrasound could further evaluate these ovarian findings if felt clinically indicated, and could also be used for appropriate follow-up, to insure against a persistent or enlarging lesion/neoplasm. No significant cul-de-sac fluid. Bones/joints: No significant acute finding. Soft tissues: Small umbilical hernia, containing only fat. CT/CT abdomen pelvis w con* [id number] IMPRESSION: 1. Suspected cholelithiasis, see additional details above. 2. 3.2 cm left ovarian cyst, see above discussion. 3. No free air or bowel distention. 4. Small adrenal nodules, see above. 5. Other findings discussed above. COMMENTS: Consistent with the [employer]'s Incidental Findings Committee white paper (J Am Carlos Radiol 2018): Any incidental renal lesion less than 1.0 cm or classified as too small to characterize, or any incidental cystic renal lesion characterized as simple-appearing, is likely benign. No follow-up imaging is recommended for these lesions per consensus recommendations based on imaging criteria. Radiation Dose CTDIVOL = (mGy): DLP = 1830.03 (mGy-cm)
[2020-02-20 03:30] LABS: HCG, Serum Qual Negative (Negative)
[2020-02-20 03:32] LABS: Add Urine Microscopic? YES; Bacteria Urine 1+ /hpf; Bilirubin Urine Neg (Negative); Blood Urine 3+ (Negative); Glucose Urine UA Norm (Normal); Ketones Urine Negative (Negative); Leukocyte Esterase Urine Negative (Negative); Mucus Urine 2+ /hpf; Nitrate Urine Negative (Negative); Protein Urine Neg (Negative); RBC Urine 0-4 /hpf (0-2); Urine Appearance Clear (CLEAR); Urine Color Yellow (Yellow); Urobilinogen Urine Norm (Negative); WBC Urine 0-4 /hpf (0-5); pH Urine 5 (5-7)
[2020-02-20 03:37] LABS: Alanine Aminotransferase 22 U/L (0-33); Alkaline Phosphatase 96 IU/L (35-105); Blood Urea Nitrogen 12 mg/dL (6-20); Calcium 9.6 mg/dL (8.5-10.5); Carbon Dioxide 26 mmol/L (22-29); Chloride 98 mmol/L (98-107); Globulin 3.7 g/dL (1.3-4.6); Glomerular Filtration Rate 108.1 mL/min (90-130); Glucose 155 mg/dL (65-115); Lipase 65 U/L (13-60); Osmolality Calculated 285 mOsm/kg (285-295); Sodium 138 mmol/L (136-145); Total Bilirubin 0.2 mg/dL (0.15-1.2); Total Protein 7.7 g/dL (6.6-8.7)
[2020-02-20 03:46] LABS: Anion Gap 18.2 (5-19); Aspartate Amino Transferase 16 U/L (0-32); Potassium 4.2 mmol/L (3.5-5.1)
[2020-02-20] MEDS: iohexol 300 mg/mL 100 mL Btl IV (04:14)
[2020-02-20 04:30] VITALS: BP 99/56; PULSE 65; RESP 16; O2SAT 98
[2020-02-20 05:08] VITALS: BP 98/56; PULSE 70; RESP 16; O2SAT 96
--- NOTE | 2020-02-21 09:47 | DCPLANNER ---
manager fire had message to schedule a follow up appointment for patient with general surgery. manager fire called [facility], spoke with Amberly, gave clinic patients information. manager fire was told that patients information would be printed and reviewed. Clinic will call patient with appointment information.
--- NOTE | 2020-03-05 10:24 | DCPLANNER ---
manager customer service called [facility] to confirm that a followup appointment had been scheduled for patient. manager customer service spoke with Geovanna. manager customer service was told that when clinic called patient to schedule a follow up appointment, that patient did not want appointment at this time, that patient will call clinic back when she wants to schedule an appointment.
== END 2020-02-20 05:35 | disposition home or self-care (01) ==
PROVIDERS: Emergency Provider Emergency Medicine; PCP Family Medicine
DX: R10.11 Right upper quadrant pain (principal); I10 Essential (primary) hypertension; E11.9 Type 2 diabetes mellitus without complications; Z87.891 Personal history of nicotine dependence
CPT/HCPCS: 12345; 74177; 80053; 81001; 83690; 84703; 85025; 96361; 96374; 96375; 99283; J2270; J2405; J7030; Q9967

== ENCOUNTER 2020-03-22 23:41 | Emergency (ER) | payer OTHER, SELFPAY ==
[2020-03-22 23:45] VITALS: BP 149/74; PULSE 76; RESP 19; TEMP 36.4; O2SAT 96; BMI 54.8
--- NOTE | 2020-03-23 00:43 | W.ED.ABDPA2 ---
HPI - Abdominal Pain General: Chief Complaint: Abdominal Pain Stated Complaint: RUQ PAIN Time Seen by Provider: 03/23/20 00:40 History of Present Illness: HPI narrative: Patient is a 45-year-old female comes to the ED with right upper quadrant abdominal pain, nausea and vomiting. Patient says she has a history of biliary colic and has seen a surgeon about getting her gallbladder removed but they told her she needed to lose some weight first. She says she has had gallbladder attacks like this in the past and this 1 is very similar to past gallbladder attacks. Pain started around 7 PM tonight right after she ate some meat loaf. She is taken hydrocodone and Zofran tonight before coming to the ED but she threw it up immediately after swallowing it. Pain is located in the right upper quadrant and she rates it around an 8 out of 10. Associated Symptoms: Reports nausea and vomiting; Denies chills, constipation, diarrhea, dysuria, fever(s), hematochezia and hematuria Related Data: Date of Last Menstrual Period: 03/21/20 Review of Systems Const: Denies: fever(s), chills or fatigue Eyes: Denies: change in vision or eye discomfort ENMT: Denies: throat pain, odynophagia, nasal discharge or nasal congestion Card: Denies: chest pain, palpitations, edema, swelling of feet/ankles, dyspnea on exertion or orthopnea Resp: Denies: dyspnea, productive cough or non-productive cough GI: Reports: abdominal pain, nausea and vomiting; Denies: diarrhea, constipation or hematochezia : Denies: flank pain, dysuria or hematuria Musc: Denies: neck pain, back pain or extremity swelling Skin/Breast: Denies: rash or new lesions Neuro: Denies: headache(s), numbness in extremities or weakness in extremities PFSH ED PFSH: Medical History Arthritis of both knees Benign essential HTN Colon polyps Fatty liver Gallstone Irritable bowel syndrome with constipation and diarrhea Obesity PCOS (polycystic ovarian syndrome) Type 2 diabetes mellitus, without long-term current use of insulin Surgical History History of appendectomy (~2018) History of tonsillectomy and adenoidectomy Family History Father Cancer colon Other CAD (coronary artery disease) Diabetes Denies family history of Anesthesia complication Bleeding disorder Social History Smoking and tobacco status: former smoker Alcohol intake: current Alcohol intake frequency: holidays/special occasions only Alcohol type: wine Adopted: No Caregiver/support person: Yes Lives independently: Yes Household members: none Housing: Apartment Marital status: Single service: No Current occupational exposures/hazards: No Pets and animals: No History of recent travel: No Sexually active: No Current gender identity: Female Emmy/Pentecostal: [employer] Special emmy needs: No Agree to transfusion: No Financial difficulty paying for basics: Decline to Answer Female Reproductive History: Date of last menstrual period: 03/21/20 Physical Exam Const: COMMON NORMALS: patient oriented x3 and alert GENERAL APPEARANCE: cooperative; not comfortable (Uncomfortable due to abdominal pain.) NUTRITIONAL APPEARANCE: obese morbidly obese HENMT: COMMON NORMALS: normocephalic HEAD & SCALP: normocephalic MOUTH: Normal oral and palatal mucosa present THROAT: posterior oropharynx normal and uvula midline Neck/C-Spine: COMMON NORMALS: supple GENERAL: Yes normal visual inspection Resp: COMMON NORMALS: normal respiratory effort, No retractions, No use of accessory muscles and clear to auscultation bilaterally AUSCULTATION: clear to auscultation bilaterally Cardio: COMMON NORMALS: regular rate, regular rhythm, S1 normal heart sound present, S2 normal heart sound present, No gallops present (Cardio), No clicks present (Cardio), No murmurs present (Cardio) and Peripheral pulses 2+ throughout RATE: regular rate RHYTHM: regular rhythm HEART SOUNDS: S1 normal heart sound present and S2 normal heart sound present PERIPHERAL PULSES: Peripheral pulses 2+ throughout GI: COMMON NORMALS: Normal to inspection, nondistended, normoactive bowel sounds present, Soft to palpation and no masses INSPECTION: Yes central obesity PALPATION: Yes Soft to palpation and Yes Tenderness to palpation present (GI) Details: RUQ (Positive Tejada sign.) : COMMON NORMALS: Yes no CVA tenderness BLADDER/KIDNEY EXAM: Yes no CVA tenderness Back/Pelvis: COMMON NORMALS: no CVA tenderness Extremity: COMMON NORMALS: normal to inspection Neuro: COMMON NORMALS: patient oriented x3 SENSORIUM/ORIENTATION: Yes alert GAIT: Yes Normal gait present Skin: COMMON NORMALS: no rashes or lesions noted GENERAL SKIN EXAM: no rashes or lesions noted and dry skin Course Reevaluation(s): Reevaluation #1: Patient was given IV fluids, morphine and Zofran and her symptoms greatly improved. She felt like her pain and nausea was controlled. She feels comfortable going home now that her nausea is a lot better. Vital Signs: Vital signs: Vital Signs Temperature 97.6 F 03/22/20 23:45 Pulse Rate 76 03/23/20 05:04 Respiratory Rate 17 03/23/20 05:04 Blood Pressure 104/68 03/23/20 05:04 Pulse Oximetry 96 03/23/20 05:04 MDM - Abdominal Pain MDM Narrative: Medical decision making narrative: Patient is a 45-year-old female who comes to the ED with right upper quadrant abdominal pain nausea and vomiting. Patient has had this pain in the past and was seen for same complaint on February 19. She is seeing a general surgeon about getting her gallbladder removed but they wanted her to lose some weight first and they also told her her liver was too fatty to perform the surgery. Patient's pain and symptoms just like her previous gallbladder attacks. Exam shows right upper quadrant tenderness and positive Tejada sign. White blood cell count 14.3, hemoglobin 10.8, AST 17, ALT 20, alk phos 97, lipase 29. Ultrasound gallbladder-common bile duct is normal, some mild gallbladder wall thickening and gallstone in neck of gallbladder. Patient was given IV fluids, Zofran and morphine and her symptoms greatly improved. She felt confident she can go home now that her nausea was under control. Patient says she is supposed to have a follow-up with general surgeon Dr. Gan, so she is going to give him a call on Tuesday morning to set up an appointment to discuss elective cholecystectomy procedure. Patient was sent home with a prescription for Zofran and she says she is plenty of hydrocodone left over from last visit to help with her pain. I told her to return to ED if her symptoms worsen and to start her diet slowly and advance as tolerated. Patient understood and agreed with plan. Lab Data: Attestation: I reviewed the patient's lab results. Labs: Lab Results 10/18/20 10/18/20 Range/Units 01:15 01:15 WBC 14.3 H (4.0-10.0) 10^3/ uL RBC 3.94 L (4.1-5.3) 10^6/u L Hgb 10.8 L (11.5-15.3) g/dL Hct 34.7 L (37.0-47.0) % MCV 88.1 (81-99) fL MCH 27.4 L (28.0-34.0) pg MCHC 31.1 (30.0-36.0) g/dL RDW 14.6 (12.1-15.1) % Plt Count 328 (130-400) 10^3/c mm MPV 10.6 H (7.4-10.4) fL Neut % (Auto) 80.1 % Lymph % (Auto) 12.4 % Sunflower % (Auto) 3.7 % Eos % (Auto) 2.2 % Baso % (Auto) 0.8 % Neut # (Auto) 11.46 H (1.8-7.7) 10^3/u L Lymph # (Auto) 1.8 (0.8-4.8) 10^3/u L Sunflower # (Auto) 0.5 (0.2-0.9) 10^3/u L Eos # (Auto) 0.3 (0.0-0.8) 10^3/u L Baso # (Auto) 0.1 (0.0-0.1) 10^3/u L Nucleated RBC % (a uto) 0 % Nucleated RBCs # 0.0 /100WBC Sodium 138 (136-145) mmol/L Potassium 3.8 (3.5-5.1) mmol/L Chloride 100 (98-107) mmol/L Carbon Dioxide 26 (22-29) mmol/L Anion Gap 15.8 (5-19) BUN 16 (6-20) mg/dL Creatinine 0.7 (0.5-0.9) mg/dL GFR Calculation 90.1 (90-130) mL/min Glucose 205 H (65-115) mg/dL Calculated Osmolal ity 293 (285-295) mOsm/k g Calcium 9.5 (8.5-10.5) mg/dL Total Bilirubin 0.2 (0.15-1.2) mg/dL AST 17 (0-32) U/L ALT 20 (0-33) U/L Alkaline Phosphata se 97 (35-105) IU/L Total Protein 7.4 (6.6-8.7) g/dL Albumin 4.0 (3.5-5.2) g/dL Globulin 3.4 (1.3-4.6) g/dL Lipase 29 (13-60) U/L Imaging Data ^: US: Attestation: I personally reviewed and interpreted this imaging study as follows: Radiologist's impression: Ultrasound of gallbladder?prelim report?stones seen in neck of gallbladder. Common bile duct is normal but not obstructed. Gallbladder wall is not thickened. [address] [address] Ultrasound Report Signed Patient: Ana Osman Unit #: [id number] : 1975 Age/Sex: 45 / F ADM Date: 03/22/20 Loc: ER Room/Bed: Attending Dr: Ordering Provider/Ordering MD: Earl Godfrey Date of Service: 03/23/20 Procedure(s): US gall bladder [id number] Accession Number(s): [id number] Report Number: [id number] PROCEDURE INFORMATION: Exam: US Abdomen, Limited; Right Upper Quadrant Exam date and time: 03/23/2020 1:24 AM Age: 45 years old Clinical indication: Abdominal pain; Acute; Additional info: Ruq pain n/v TECHNIQUE: Imaging protocol: US abdomen. Real time ultrasound with image documentation. Limited exam focused on the right upper quadrant. COMPARISON: US gall bladder [id number] 01/05/2020 3:16 AM FINDINGS: Liver: There is hyperechogenicity of the hepatic parenchyma compatible with fatty infiltration. The liver is mildly prominent measuring 18.4 cm craniocaudal dimension. Gallbladder: There are hyperechoic foci present intraluminally within the gallbladder exhibiting acoustic shadowing compatible with gallstones. There is mild gallbladder wall thickening measuring 2.9 mm. There is a positive sonographic Tejada sign elicited. Common bile duct: Normal. No stones. No dilation. Pancreas: Visualized pancreas is unremarkable. Right kidney: Normal. No mass. No hydronephrosis. US/US gall bladder [id number] IMPRESSION: 1. Prominent gallstone within the gallbladder neck, mild gallbladder wall thickening and positive sonographic Tejada sign, findings suggesting gallstone cholecystitis. 2. Hepatomegaly and fatty infiltration of the liver Dictated By: Bro Whatley MD Signed By: Bro Whatley MD Signed Date/Time: 03/23/20139 DD/ 7 Discharge Plan Discharge Patient Disposition: Home Clinical Impression: Biliary colic Gallstone Qualifiers: Cholecystitis presence: without cholecystitis Biliary obstruction: without biliary obstruction Qualified Code(s): K80.20 - Calculus of gallbladder without cholecystitis without obstruction Condition: Stable Prescriptions: New ondansetron 4 mg tablet,disintegrating 4 mg PO Q8H Qty: 20 RF: 0 No Action atorvastatin 20 mg tablet 20 mg PO .po q hs Qty: 30 RF: 1 lidocaine-epinephrine (PF) 2 %-1:200,000 solution 7 ml Infiltration ONCE PRN (Reason: anesthesia) Qty: 1 RF: 0 povidone-iodine [Betadine Swabsticks] 10 % swab 1 applic topical ONCE PRN (Reason: disinfection) Qty: 1 RF: 0 metformin 500 mg tablet extended release 24hr 500 mg PO DAILY Qty: 30 RF: 1 ferrous sulfate [Feosol] 325 mg (65 mg iron) tablet 325 mg PO DAILY RF: 0 hydrochlorothiazide 25 mg tablet 25 mg PO DAILY Qty: 90 RF: 1 lisinopril 5 mg tablet 5 mg PO DAILY Qty: 90 RF: 1 [place] 5-325 mg tablet 1 tab PO Q6H PRN (Reason: pain) Qty: 14 RF: 0 Reglan 10 mg tablet 10 mg PO Q6H PRN (Reason: nausea and vomiting) Qty: 20 RF: 0 Discharge Orders: Discharge Order (Routine); Ordered 03/23/20 Ordered By: Earl Godfrey Referrals: Vida Mayer DO [Primary Care Provider] - Discharge Diet: Advance as tolerated and Clear Liquid Discharge Activity: Increase activity as tolerated Patient Instructions: Biliary Colic (ED) Activity Restrictions/Additional Instructions: Follow-up with medical provider as directed. Call Dr. Gan Tuesday morning to discuss recent ED visit and possible reevaluation for gallbladder removal surgery. Start with clear liquid diet then slowly advance as tolerated. Take medications as prescribed. Return to the ER if condition worsens. Please read and understand discharge instructions. If any questions, please ask. Discharge Date/Time: 03/23/20 05:04 Coding Level of Care Code ED [facility] for [facility] Fwd Exam Comprehensive
[2020-03-23 00:49] VITALS: BP 158/112; PULSE 71; RESP 18; O2SAT 97
--- NOTE | 2020-03-23 00:52 | USR_ITS ---
PROCEDURE INFORMATION: Exam: US Abdomen, Limited; Right Upper Quadrant Exam date and time: 03/23/2020 1:24 AM Age: 45 years old Clinical indication: Abdominal pain; Acute; Additional info: Ruq pain n/v TECHNIQUE: Imaging protocol: US abdomen. Real time ultrasound with image documentation. Limited exam focused on the right upper quadrant. COMPARISON: US gall bladder [id number] 01/05/2020 3:16 AM FINDINGS: Liver: There is hyperechogenicity of the hepatic parenchyma compatible with fatty infiltration. The liver is mildly prominent measuring 18.4 cm craniocaudal dimension. Gallbladder: There are hyperechoic foci present intraluminally within the gallbladder exhibiting acoustic shadowing compatible with gallstones. There is mild gallbladder wall thickening measuring 2.9 mm. There is a positive sonographic Tejada sign elicited. Common bile duct: Normal. No stones. No dilation. Pancreas: Visualized pancreas is unremarkable. Right kidney: Normal. No mass. No hydronephrosis. US/US gall bladder [id number] IMPRESSION: 1. Prominent gallstone within the gallbladder neck, mild gallbladder wall thickening and positive sonographic Tejada sign, findings suggesting gallstone cholecystitis. 2. Hepatomegaly and fatty infiltration of the liver
[2020-03-23 01:10] VITALS: RESP 18; O2SAT 97
[2020-03-23] MEDS: morphine 4 mg/mL SDV 1 mL IVP (01:10)
[2020-03-23] MEDS: sodium chloride 0.9% 1,000 ML 999 ML IV (01:12)
[2020-03-23] MEDS: ondansetron 2 mg/ML SDV 2 mL 4 MG IVP ×2 (01:14→02:23)
[2020-03-23 01:22] LABS: Basophils # 0.1 10^3/uL (0.0-0.1); Basophils % 0.8 %; Eosinophils # 0.3 10^3/uL (0.0-0.8); Eosinophils % 2.2 %; Hematocrit 34.7 % (37.0-47.0); Hemoglobin 10.8 g/dL (11.5-15.3); Lymphocytes # 1.8 10^3/uL (0.8-4.8); Lymphocytes % 12.4 %; Mean Corpuscular HGB Conc 31.1 g/dL (30.0-36.0); Mean Corpuscular Hemoglobin 27.4 pg (28.0-34.0); Mean Corpuscular Volume 88.1 fL (81-99); Mean Platelet Volume 10.6 fL (7.4-10.4); Monocytes # 0.5 10^3/uL (0.2-0.9); Monocytes % 3.7 %; Neutrophils # 11.46 10^3/uL (1.8-7.7); Neutrophils % 80.1 %; Nucleated Red Blood Cells % 0 %; Platelet Count 328 10^3/cmm (130-400); Red Blood Count 3.94 10^6/uL (4.1-5.3); Red Cell Distribution Width 14.6 % (12.1-15.1); White Blood Count 14.3 10^3/uL (4.0-10.0)
[2020-03-23 01:42] LABS: Alanine Aminotransferase 20 U/L (0-33); Alkaline Phosphatase 97 IU/L (35-105); Anion Gap 15.8 (5-19); Aspartate Amino Transferase 17 U/L (0-32); Blood Urea Nitrogen 16 mg/dL (6-20); Calcium 9.5 mg/dL (8.5-10.5); Carbon Dioxide 26 mmol/L (22-29); Chloride 100 mmol/L (98-107); Globulin 3.4 g/dL (1.3-4.6); Glomerular Filtration Rate 90.1 mL/min (90-130); Glucose 205 mg/dL (65-115); Lipase 29 U/L (13-60); Osmolality Calculated 293 mOsm/kg (285-295); Potassium 3.8 mmol/L (3.5-5.1); Sodium 138 mmol/L (136-145); Total Bilirubin 0.2 mg/dL (0.15-1.2); Total Protein 7.4 g/dL (6.6-8.7)
[2020-03-23] MEDS: ondansetron 4 MG Tablet PO (02:23)
[2020-03-23 05:04] VITALS: BP 104/68; PULSE 76; RESP 17; O2SAT 96
--- NOTE | 2020-03-24 15:00 | DCPLANNER ---
manager heavy duty had message to schedule a follow up appointment for patient with general surgery. manager heavy duty called [facility], spoke with Rodrick, gave clinic patients information. manager heavy duty was told that patients information would be printed and reviewed. Clinic will call patient with appointment information.
--- NOTE | 2020-03-27 14:30 | DCPLANNER ---
network project manager called [facility], spoke with Amberly, was told that clinic is waiting for patient to call clinic to schedule appointment.
== END 2020-03-23 05:04 | disposition home or self-care (01) ==
PROVIDERS: Emergency Provider Physician Assistant; PCP Family Medicine
DX: K80.20 Calculus of gallbladder without cholecystitis without obstruction (principal); I10 Essential (primary) hypertension; E11.9 Type 2 diabetes mellitus without complications; Z79.84 Long term (current) use of oral hypoglycemic drugs; Z87.891 Personal history of nicotine dependence
CPT/HCPCS: 12345; 76705; 80053; 83690; 85025; 87040; 96361; 96374; 96375; 96376; 99283; J2270; J2405; J7030; Q0162

== ENCOUNTER 2020-04-07 00:19 | Emergency (ER) | payer OTHER, SELFPAY ==
[2020-04-07] VITALS (9 sets, daily range): BP systolic 107–146; BP diastolic 50–94; PULSE 63–77; RESP 16–18; TEMP 36.3; O2SAT 94–98; BMI 54.8
--- NOTE | 2020-04-07 00:26 | ECG_ITS ---
[facility] Test Date: 2020-04-07 Pat Name: Ana Osman Department: Room: Gender: Female Intake Specialist: : 1975 Requested By: Savanah Love Order Number: [id number] Timothy MD: ELPIDIO ANDREW Measurements Intervals [place] Rate: 71 P: 17 RI: 139 QRS: 34 QRSD: 99 T: 10 QT: 397 QTc: 434 Interpretive Statements SINUS RHYTHM LOW QRS VOLTAGE IN PRECORDIAL LEADS [QRS DEFLECTION < 1.0 mV IN CHEST LEADS] No previous ECG available for comparison Electronically Signed On 04-07-2020 20:16:11 ON AIR [employer]ERSONAL[employer] by ELPIDIO ANDREW [email or web address]
--- NOTE | 2020-04-07 00:36 | ED_ITS ---
HPI - Abdominal Pain General: Chief Complaint: Abdominal Pain Stated Complaint: upper abd/nausea Time Seen by Provider: 04/07/20 00:26 History of Present Illness: HPI narrative: 45-year-old female patient presents to the emergency department with onset of right upper quadrant pain, epigastric pain nausea and vomiting. Reports pain started this heartburn symptoms, acid reflux then escalated to right upper quadrant pain. She reports 3 episodes of diarrhea. History of gallbladder disease, has yet to schedule an appointment with Dr. Gan for possible surgical management due to work schedule. She states has tried not to eat due to continued nausea and right upper quadrant pain past few weeks. She reports ate turkey Ukrainian sausage with 2-1/2-hour post onset of nausea vomiting and pain. States had oral Zofran at home but vomited it up. She took Tylenol for pain with emesis after. Right upper quadrant ultrasound, gallbladder ultrasound completed 03/23/2020 with gallstone in the gallbladder neck. CT scan of the abdomen pelvis on 02/20/2020 revealed suspected cholelithiasis. MD elicited complaint: abdominal pain Onset (ago): hour(s) (1) Pain Consistency: constant Location: Epigastric and RUQ Severity: moderate Quality: aching and dull Radiation: RUQ and back Exacerbating factors: eating Relieving factors: nothing Context: history of similar episodes Associated Symptoms: Reports bloating, chills, diarrhea, heartburn, nausea and vomiting; Denies dysuria Treatments prior to arrival: other (Zofran) Related Data: Date of Last Menstrual Period: 03/21/20 Review of Systems General: Reports: 10 or more systems reviewed and unremarkable except in HPI and below Const: Reports: chills Eyes: Denies: blurry vision or eye redness ENMT: Denies: throat pain, dental pain or disequilibrium Card: Reports: chest pain; Denies: palpitations or irregular heart rhythm Resp: Denies: dyspnea, productive cough, non-productive cough or wheezing GI: Reports: abdominal pain, nausea, vomiting, heartburn, diarrhea and bloating : Denies: difficulty voiding or dysuria Musc: Denies: back pain Skin/Breast: Denies: rash or pruritus Neuro: Denies: headache(s), weakness in extremities or behavioral changes Psych: Denies: anxiety or depression Kvng/Lymph: Denies: easy bruising PFSH ED PFSH: Medical History (Updated 04/07/20 @ 02:28 by EDNA Puentes) Arthritis of both knees Benign essential HTN Colon polyps Fatty liver Gallstone Irritable bowel syndrome with constipation and diarrhea Obesity PCOS (polycystic ovarian syndrome) Type 2 diabetes mellitus, without long-term current use of insulin Surgical History History of appendectomy (~2018) History of tonsillectomy and adenoidectomy Family History Father Cancer colon Other CAD (coronary artery disease) Diabetes Denies family history of Anesthesia complication Bleeding disorder Social History Smoking and tobacco status: former smoker Alcohol intake: current Alcohol intake frequency: holidays/special occasions only Alcohol type: wine Adopted: No Caregiver/support person: Yes Lives independently: Yes Household members: none Housing: Apartment Marital status: Single service: No Current occupational exposures/hazards: No Pets and animals: No History of recent travel: No Sexually active: No Current gender identity: Female Emmy/Sabianism: Jain Special emmy needs: No Agree to transfusion: No Financial difficulty paying for basics: Decline to Answer Female Reproductive History: Date of last menstrual period: 03/21/20 Physical Exam Const: COMMON NORMALS: no acute distress, patient oriented x3, healthy appearing and alert GENERAL APPEARANCE: cooperative and well hydrated NUTRITIONAL APPEARANCE: obese ORIENTATION/CONSCIOUSNESS: Yes awake, Yes oriented to person, Yes oriented to place and Yes oriented to time HENMT: COMMON NORMALS: normocephalic, Normal external nose present and moist oral mucous membranes HEAD & SCALP: normocephalic NOSE: Normal external nose present Eye: COMMON NORMALS: Equal, round and reactive pupils present and EOMs intact bilaterally GENERAL EYE: appearance normal, both eyes and all related structures PUPIL: Yes Equal, round and reactive pupils present Neck/C-Spine: COMMON NORMALS: full ROM and no lymphadenopathy GENERAL: Yes normal visual inspection and Yes trachea midline CERVICAL SPINE: Yes cervical ROM normal Lymph: LYMPHATIC: no lymphadenopathy noted Chest: COMMONS NORMALS: normal inspection of the chest Resp: COMMON NORMALS: normal respiratory effort and clear to auscultation bilaterally AUSCULTATION: clear to auscultation bilaterally Cardio: COMMON NORMALS: regular rhythm, S1 normal heart sound present, S2 normal heart sound present and Peripheral pulses 2+ throughout RHYTHM: regular rhythm HEART SOUNDS: S1 normal heart sound present and S2 normal heart sound present PERIPHERAL PULSES: Peripheral pulses 2+ throughout GI: COMMON NORMALS: Soft to palpation INSPECTION: Yes normal to inspection, No abdominal wall ecchymosis, Yes central obesity and No visible herniation AUSCULTATION: Yes normoactive bowel sounds PALPATION: Yes Soft to palpation, Yes Tenderness to palpation present (GI) Details: RUQ and Yes Other GI palpation findings present (Positive Tejada's) : COMMON NORMALS: Yes no CVA tenderness BLADDER/KIDNEY EXAM: Yes no CVA tenderness Back/Pelvis: COMMON NORMALS: no CVA tenderness and thoracic and lumbar spine normal to inspection Extremity: COMMON NORMALS: normal to inspection and capillary refill normal Neuro: COMMON NORMALS: patient oriented x3 and no focal motor deficits SENSORIUM/ORIENTATION: Yes alert, Yes oriented to person, Yes oriented to place and Yes oriented to time Psych: COMMON NORMALS: mental status grossly normal, Normal thought process present and cooperative ACTIVITY/MOTOR BEHAVIOR: Yes appropriate eye contact THOUGHT PROCESS: Normal thought process present Skin: COMMON NORMALS: no rashes or lesions noted and turgor normal GENERAL SKIN EXAM: no rashes or lesions noted and turgor normal Course ED course: 45-year-old female patient presents to the emergency department with right upper quadrant pain, nausea vomiting, known gallbladder disease, cholelithiasis. Reports heartburn symptoms prior to onset of right upper quadrant pain after eating turkey Ukrainian sausage. Zofran and morphine administered here in the ED. Pain resolved. She was also given GI cocktail. She was able to tolerate p.o. fluids without vomiting. States has hydrocodone and Zofran at home. She agrees to follow-up with Dr. Gan due to gallbladder disease. Counseling provided in regards to cholecystitis, patient advised if she develops fever chills or worsening abdominal pain with nausea vomiting, she must return to the ED. She is requesting to go home, feels better, states not able to eat bread as this seems to upset her stomach. Will place her on Protonix to help with heartburn symptoms Vital Signs: Vital signs: Vital Signs Temperature 97.3 F L 04/07/20 00:25 Pulse Rate 65 04/07/20 04:06 Respiratory Rate 17 04/07/20 04:06 Blood Pressure 108/61 04/07/20 04:06 Pulse Oximetry 95 04/07/20 04:06 MDM - Abdominal Pain Lab Data: Labs: Lab Results 04/07/20 04/07/20 04/07/20 Range/Units 00:45 00:45 01:50 WBC 12.8 H (4.0-10.0) 10^3/ uL RBC 4.00 L (4.1-5.3) 10^6/u L Hgb 11.1 L (11.5-15.3) g/dL Hct 34.9 L (37.0-47.0) % MCV 87.3 (81-99) fL MCH 27.8 L (28.0-34.0) pg MCHC 31.8 (30.0-36.0) g/dL RDW 14.6 (12.1-15.1) % Plt Count 294 (130-400) 10^3/c mm MPV 10.6 H (7.4-10.4) fL Neut % (Auto) 73.5 % Lymph % (Auto) 19.1 % Hutchinson % (Auto) 4.5 % Eos % (Auto) 1.4 % Baso % (Auto) 0.8 % Neut # (Auto) 9.41 H (1.8-7.7) 10^3/u L Lymph # (Auto) 2.4 (0.8-4.8) 10^3/u L Hutchinson # (Auto) 0.6 (0.2-0.9) 10^3/u L Eos # (Auto) 0.2 (0.0-0.8) 10^3/u L Baso # (Auto) 0.1 (0.0-0.1) 10^3/u L Nucleated RBC % (a uto) 0 % Nucleated RBCs # 0.0 /100WBC Sodium 135 L (136-145) mmol/L Potassium 3.6 (3.5-5.1) mmol/L Chloride 95 L (98-107) mmol/L Carbon Dioxide 29 (22-29) mmol/L Anion Gap 14.6 (5-19) BUN 8 (6-20) mg/dL Creatinine 0.6 (0.5-0.9) mg/dL GFR Calculation 107.6 (90-130) mL/min Glucose 174 H (65-115) mg/dL Calculated Osmolal ity 283 L (285-295) mOsm/k g Calcium 9.5 (8.5-10.5) mg/dL Total Bilirubin 0.2 (0.15-1.2) mg/dL AST 14 (0-32) U/L ALT 16 (0-33) U/L Alkaline Phosphata se 89 (35-105) IU/L Total Protein 7.6 (6.6-8.7) g/dL Albumin 4.0 (3.5-5.2) g/dL Globulin 3.6 (1.3-4.6) g/dL Lipase 24 (13-60) U/L Urine Color Yellow (Yellow) Urine Appearance Sl cloudy A (CLEAR) Urine pH 5 (5-7) Ur Specific Gravit y 1.030 (1.005-1.030) Urine Protein Trace (Negative) Urine Glucose (UA) Norm (Normal) Urine Ketones 1+ H (Negative) Urine Blood Trace H (Negative) Urine Nitrate Negative (Negative) Urine Bilirubin Neg (Negative) Urine Urobilinogen 1 H (Negative) mg/dL Ur Leukocyte Samantha ase Negative (Negative) Urine RBC 0-4 H (0-2) /hpf Urine WBC 0-4 H (0-5) /hpf Ur Squamous Epith Cells 15-25 H (0-5) /hpf Calcium Oxalate Cr ystal 40-55 H /hpf Amorphous Sediment Not Reportable Urine Bacteria Trace (NONE) /hpf EKG Data ^: EKG 1: EKG interpretation date: 04/07/20 EKG interpretation time: 00:40 Computer generated interpretation: Sinus rhythm, borderline ECG Discharge Plan Discharge Patient Disposition: Home Clinical Impression: Cholelithiasis Qualifiers: Cholelithiasis location: gallbladder Cholecystitis presence: without cholecystitis Biliary obstruction: without biliary obstruction Qualified Code(s): K80.20 - Calculus of gallbladder without cholecystitis without obstruction Abdominal pain Qualifiers: Abdominal location: right upper quadrant Qualified Code(s): R10.11 - Right upper quadrant pain GERD (gastroesophageal reflux disease) Qualifiers: Esophagitis presence: esophagitis presence not specified Qualified Code(s): K21.9 - Gastro-esophageal reflux disease without esophagitis Condition: Stable Prescriptions: New Protonix 20 mg tablet,delayed release (DR/EC) 20 mg PO DAILY 28 Days Qty: 30 RF: 0 No Action atorvastatin 20 mg tablet 20 mg PO .po q hs Qty: 30 RF: 1 lidocaine-epinephrine (PF) 2 %-1:200,000 solution 7 ml Infiltration ONCE PRN (Reason: anesthesia) Qty: 1 RF: 0 povidone-iodine [Betadine Swabsticks] 10 % swab 1 applic topical ONCE PRN (Reason: disinfection) Qty: 1 RF: 0 metformin 500 mg tablet extended release 24hr 500 mg PO DAILY Qty: 30 RF: 1 ferrous sulfate [Feosol] 325 mg (65 mg iron) tablet 325 mg PO DAILY RF: 0 hydrochlorothiazide 25 mg tablet 25 mg PO DAILY Qty: 90 RF: 1 lisinopril 5 mg tablet 5 mg PO DAILY Qty: 90 RF: 1 ondansetron 4 mg tablet,disintegrating 4 mg PO Q8H Qty: 20 RF: 0 Sumner 5-325 mg tablet 1 tab PO Q6H PRN (Reason: pain) Qty: 14 RF: 0 Reglan 10 mg tablet 10 mg PO Q6H PRN (Reason: nausea and vomiting) Qty: 20 RF: 0 Discharge Orders: Discharge Order (Routine); Ordered 04/07/20 Ordered By: Savanah Garrett Referrals: Vida Mayer DO [Primary Care Provider] - Discharge Diet: As Directed Discharge Activity: Resume usual activity Patient Instructions: Cholelithiasis, Biliary Colic (ED) Activity Restrictions/Additional Instructions: no fried, fatty, greasy meals Call Dr Mac office tomorrow to schedule appt Return to the ED if you experience nausea, vomiting, FEVER, worsening abdominal pain of the right upper quadrant or any other concerning symptoms Push fluids eat bland food such as crackers, broth, applesauce avoid spicy foods Discharge Date/Time: 04/07/20 04:14 Coding Level of Care Code ED [employer] for Chg Fwd Exam Comprehensive
[2020-04-07] MEDS: ondansetron 2 mg/ML SDV 2 mL 4 MG IVP ×2 (00:52→04:09)
[2020-04-07] MEDS: morphine 4 mg/mL SDV 1 mL 2 MG IVP (00:52)
[2020-04-07 00:54] LABS: Basophils # 0.1 10^3/uL (0.0-0.1); Basophils % 0.8 %; Eosinophils # 0.2 10^3/uL (0.0-0.8); Eosinophils % 1.4 %; Hematocrit 34.9 % (37.0-47.0); Hemoglobin 11.1 g/dL (11.5-15.3); Lymphocytes # 2.4 10^3/uL (0.8-4.8); Lymphocytes % 19.1 %; Mean Corpuscular HGB Conc 31.8 g/dL (30.0-36.0); Mean Corpuscular Hemoglobin 27.8 pg (28.0-34.0); Mean Corpuscular Volume 87.3 fL (81-99); Mean Platelet Volume 10.6 fL (7.4-10.4); Monocytes # 0.6 10^3/uL (0.2-0.9); Monocytes % 4.5 %; Neutrophils # 9.41 10^3/uL (1.8-7.7); Neutrophils % 73.5 %; Nucleated Red Blood Cells % 0 %; Platelet Count 294 10^3/cmm (130-400); Red Cell Distribution Width 14.6 % (12.1-15.1); White Blood Count 12.8 10^3/uL (4.0-10.0)
[2020-04-07 01:10] LABS: Alanine Aminotransferase 16 U/L (0-33); Alkaline Phosphatase 89 IU/L (35-105); Anion Gap 14.6 (5-19); Aspartate Amino Transferase 14 U/L (0-32); Blood Urea Nitrogen 8 mg/dL (6-20); Calcium 9.5 mg/dL (8.5-10.5); Carbon Dioxide 29 mmol/L (22-29); Chloride 95 mmol/L (98-107); Creatinine Clr Calc Pharmacy 150.3614; Globulin 3.6 g/dL (1.3-4.6); Glomerular Filtration Rate 107.6 mL/min (90-130); Glucose 174 mg/dL (65-115); Lipase 24 U/L (13-60); Osmolality Calculated 283 mOsm/kg (285-295); Potassium 3.6 mmol/L (3.5-5.1); Sodium 135 mmol/L (136-145); Total Bilirubin 0.2 mg/dL (0.15-1.2); Total Protein 7.6 g/dL (6.6-8.7)
[2020-04-07] MEDS: lidocaine 2% viscous 15 ML, aluminum-mag hydrox-simethicon 30 ML, sucralfate oral liq 1 GM PO (02:01)
[2020-04-07 02:03] LABS: Add Urine Microscopic? YES; Bilirubin Urine Neg (Negative); Blood Urine Trace (Negative); Glucose Urine UA Norm (Normal); Ketones Urine 1+ (Negative); Leukocyte Esterase Urine Negative (Negative); Nitrate Urine Negative (Negative); Protein Urine Trace (Negative); Urine Color Yellow (Yellow); Urobilinogen Urine 1 mg/dL (Negative); pH Urine 5 (5-7)
[2020-04-07 02:32] LABS: Bacteria Urine TRACE /hpf; Calcium Oxalate Crystals Urine 40-55 /hpf; RBC Urine 0-4 /hpf (0-2); Squamous Epithelial Cell Urine 15-25 /hpf (0-5); WBC Urine 0-4 /hpf (0-5)
[2020-04-07 02:33] LABS: Add Urine Culture? No
--- NOTE | 2020-04-07 10:57 | DCPLANNER ---
science manager had message to schedule a follow up appointment for patient with general surgery. science manager e mailed Tuyet and Amberly at [facility] about follow up appointment for patient. science manager was emailed back a follow up appointment was scheduled for Tuesday, April 14, [address] at 3:[address] Gan. Clinic will call patient with appointment information.
--- NOTE | 2020-05-07 12:21 | DCPLANNER ---
Patient had a follow up appointment scheduled for 04.14.20 with [facility] general surgery - patient did attend appointment.
== END 2020-04-07 04:14 | disposition home or self-care (01) ==
PROVIDERS: Emergency Provider Nurse Practitioner Family; PCP Family Medicine
DX: K80.20 Calculus of gallbladder without cholecystitis without obstruction (principal); K21.9 Gastro-esophageal reflux disease without esophagitis; Z79.84 Long term (current) use of oral hypoglycemic drugs; Z87.891 Personal history of nicotine dependence; I10 Essential (primary) hypertension; E11.9 Type 2 diabetes mellitus without complications
CPT/HCPCS: 12345; 80053; 81001; 83690; 85025; 93005; 96374; 96375; 96376; 99283; 99284; J2270; J2405

== ENCOUNTER 2020-04-11 01:17 | Emergency (ER) | payer OTHER, SELFPAY ==
[2020-04-11 01:27] VITALS: PULSE 73; RESP 17; TEMP 36.6; O2SAT 95; BMI 55.8
--- NOTE | 2020-04-11 01:40 | ED_ITS ---
HPI - Abdominal Pain General: Chief Complaint: Abdominal Pain Stated Complaint: UPPER BACK AND PAIN Time Seen by Provider: 04/11/20 01:40 Source: patient Mode of arrival: ambulatory Limitations: no limitations History of Present Illness: HPI narrative: Micky is a 45-year-old female who comes in complaining of right upper quadrant abdominal pain. This will be the fifth or sixth episode since July of the same problem. Pain is in her right upper quadrant and radiates up to her right shoulder. Tonight she has had associated nausea and vomiting with this. She is also had nonbloody diarrhea. Patient states she cannot keep anything down including pain medication. Denies any fevers or chills. Denies any chest pain or shortness of breath. She states that she is trying to get into see Dr. Gan about trying to get her gallbladder out but she has not been able to arrange for that ultrasound or appointment up to this point. Associated Symptoms: Reports diarrhea, nausea and vomiting; Denies chills, coffee ground emesis, constipation, GI cramping, dysuria, fever(s), heartburn, hematochezia, hematuria, hematemesis, melena and syncope Related Data: Date of Last Menstrual Period: 03/26/20 Review of Systems Const: Denies: fever(s), chills, body aches, fatigue, malaise or diaphoresis Eyes: Denies: change in vision, blurry vision, photophobia, eye discomfort, eye discharge, eye redness or yellow eyes ENMT: Denies: throat pain, odynophagia, hoarseness, swelling of lips/tongue, ear or mastoid pain, ear discharge, change in hearing or nasal discharge Card: Denies: chest pain, palpitations, irregular heart rhythm, edema, lightheadedness, syncope, pre-syncope, dyspnea on exertion or orthopnea Resp: Denies: dyspnea, productive cough, non-productive cough, wheezing, hemoptysis or chest congestion GI: Reports: abdominal pain, nausea, vomiting and diarrhea; Denies: hematemesis, coffee ground emesis, heartburn, constipation, GI cramping, hematochezia or melena : Denies: flank pain, dysuria, urinary frequency, urinary urgency or hematuria Musc: Denies: neck pain, back pain, extremity pain, extremity swelling, joint pain, joint swelling, joint redness, joint warmth or joint stiffness Skin/Breast: Denies: rash, pruritus, erythema, skin pain or skin tenderness Neuro: Denies: headache(s), numbness in extremities, weakness in extremities, sensory changes, lack of coordination, difficulty walking, dizziness, vertigo, confusion, Slurred speech present or seizure-like activity Kvng/Lymph: Denies: easy bruising, easy bleeding, petechiae, purpura or enlarged lymph nodes All/Imm: Denies: urticaria, throat swelling, tongue swelling, facial swelling or acute wheezing PFSH ED PFSH: Medical History Arthritis of both knees Benign essential HTN Colon polyps Fatty liver Gallstone Irritable bowel syndrome with constipation and diarrhea Obesity PCOS (polycystic ovarian syndrome) Type 2 diabetes mellitus, without long-term current use of insulin Surgical History History of appendectomy (~2018) History of tonsillectomy and adenoidectomy Family History Father Cancer colon Other CAD (coronary artery disease) Diabetes Denies family history of Anesthesia complication Bleeding disorder Social History Smoking and tobacco status: former smoker Alcohol intake: current Alcohol intake frequency: holidays/special occasions only Alcohol type: wine Adopted: No Caregiver/support person: Yes Lives independently: Yes Household members: none Housing: Apartment Marital status: Single service: No Current occupational exposures/hazards: No Pets and animals: No History of recent travel: No Sexually active: No Current gender identity: Female Emmy/Yarsani: [employer] Special emmy needs: No Agree to transfusion: No Financial difficulty paying for basics: Decline to Answer Female Reproductive History: Date of last menstrual period: 03/26/20 Physical Exam Const: COMMON NORMALS: no acute distress, patient oriented x3, no limitations and alert GENERAL APPEARANCE: cooperative HENMT: COMMON NORMALS: normocephalic, atraumatic, external ears normal, EAC's normal and Normal external nose present HEAD & SCALP: normal to inspection, normocephalic and atraumatic FACE & SINUS: normal facial exam and face symmetric NOSE: Normal external nose present and Normal nares present EXTERNAL EAR: Yes external ears normal EXTERNAL AUDITORY CANAL: EAC's normal MOUTH: Normal oral and palatal mucosa present, lip normal and tongue normal Eye: COMMON NORMALS: Equal, round and reactive pupils present and conjunctivae normal GENERAL EYE: appearance normal, both eyes and all related structures ALIGNMENT: Yes alignment normal PERIORBITAL: periorbital findings normal EYELID: eyelids normal CONJUNCTIVA: Yes conjunctivae normal SCLERA: sclerae normal PUPIL: Yes Equal, round and reactive pupils present Neck/C-Spine: COMMON NORMALS: full ROM, no lymphadenopathy, supple, no meningeal signs and no JVD GENERAL: Yes normal visual inspection and Yes trachea midline Chest: COMMONS NORMALS: normal inspection of the chest and normal palpation of entire chest wall Resp: COMMON NORMALS: normal respiratory effort, No retractions, No use of accessory muscles and clear to auscultation bilaterally EFFORT & INSPECTION: Yes able to speak in complete sentences and Yes symmetric chest movement AUSCULTATION: clear to auscultation bilaterally, no crackles, no rales, no rhonchi and no wheezes Cardio: COMMON NORMALS: no JVD, regular rate, regular rhythm, S1 normal heart sound present and S2 normal heart sound present RATE: regular rate RHYTHM: regular rhythm HEART SOUNDS: S1 normal heart sound present, S2 normal heart sound present, no click, no gallops, no murmurs and no rubs GI: COMMON NORMALS: Soft to palpation and No hepatosplenomegaly present PALPATION: Yes Soft to palpation, Yes Tenderness to palpation present (GI) Details: RUQ, No Guarding due to palpation present (GI), No Rigid due to palpation, Yes No hepatosplenomegaly present, No Hernia present, No Palpable mass present and No Pulsatile mass present : COMMON NORMALS: Yes no CVA tenderness BLADDER/KIDNEY EXAM: Yes no CVA tenderness EXTERNAL FEMALE EXAM: No Hernia present Back/Pelvis: COMMON NORMALS: no CVA tenderness, thoracic and lumbar spine normal to inspection, no thoracic nor lumbar tenderness and thoraco-lumbar ROM normal Extremity: COMMON NORMALS: normal to inspection, full ROM, capillary refill normal, no joint enlargement, no clubbing, cyanosis or edema and no calf tenderness Neuro: COMMON NORMALS: patient oriented x3, CN's II-XII intact bilaterally, moves all extremities, no focal motor deficits and no sensory deficits noted SENSORIUM/ORIENTATION: Yes alert MENINGEAL SIGNS: Yes no meningeal signs SPEECH: speech normal Psych: COMMON NORMALS: mental status grossly normal, Normal thought process present, cooperative, normal affect, speech normal and activity/motor behavior normal SPEECH: Yes normal speech THOUGHT PROCESS: Normal thought process present Skin: COMMON NORMALS: no rashes or lesions noted, turgor normal, no jaundice, no petechiae and no mottling GENERAL SKIN EXAM: no rashes or lesions noted and turgor normal Course Vital Signs: Vital signs: Vital Signs Temperature 98.6 F 04/11/20 04:03 Pulse Rate 62 04/11/20 04:03 Respiratory Rate 18 04/11/20 04:03 Blood Pressure 114/74 04/11/20 04:03 Pulse Oximetry 94 04/11/20 04:03 MDM - Abdominal Pain MDM Narrative: Medical decision making narrative: Demetrio Bansal is a nice 45-year-old female who comes in complaining of recurrent right upper quadrant abdominal pain. This is her fifth episode since July. Her pain subsided gradually on its own here. I recommended she come into the hospital as she states she is having more frequent attacks. Patient did not vomit here but does have an elevated white count. She declined to stay and wants to go home. She has had elderly aunt that she needs to care for. She understands that she could get much sicker and if she has more pain or fever or any other complaints she agrees to return immediately. At this time though she is feeling much better and wants to go home. She has an appointment to see Dr. Gan on Tuesday. Lab Data: Attestation: I reviewed the patient's lab results. Labs: Lab Results 04/11/20 04/11/20 04/11/20 Range/Units 02:00 02:00 02:00 WBC 12.4 H (4.0-10.0) 10^3/ uL RBC 4.00 L (4.1-5.3) 10^6/u L Hgb 10.9 L (11.5-15.3) g/dL Hct 35.8 L (37.0-47.0) % MCV 89.5 (81-99) fL MCH 27.3 L (28.0-34.0) pg MCHC 30.4 (30.0-36.0) g/dL RDW 14.9 (12.1-15.1) % Plt Count 257 (130-400) 10^3/c mm MPV 10.8 H (7.4-10.4) fL Neut % (Auto) 77.5 % Lymph % (Auto) 14.6 % [place] % (Auto) 4.1 % Eos % (Auto) 2.1 % Baso % (Auto) 0.7 % Neut # (Auto) 9.62 H (1.8-7.7) 10^3/u L Lymph # (Auto) 1.8 (0.8-4.8) 10^3/u L [place] # (Auto) 0.5 (0.2-0.9) 10^3/u L Eos # (Auto) 0.3 (0.0-0.8) 10^3/u L Baso # (Auto) 0.1 (0.0-0.1) 10^3/u L Nucleated RBC % (a uto) 0 % Nucleated RBCs # 0.0 /100WBC Sodium 139 (136-145) mmol/L Potassium 4.1 (3.5-5.1) mmol/L Chloride 102 (98-107) mmol/L Carbon Dioxide 27 (22-29) mmol/L Anion Gap 14.1 (5-19) BUN 9 (6-20) mg/dL Creatinine 0.5 (0.5-0.9) mg/dL GFR Calculation 132.8 H (90-130) mL/min Glucose 158 H (65-115) mg/dL Calculated Osmolal ity 290 (285-295) mOsm/k g Calcium 8.9 (8.5-10.5) mg/dL Magnesium 2.0 (1.7-2.3) mg/dL Total Bilirubin 0.2 (0.15-1.2) mg/dL AST 11 (0-32) U/L ALT 16 (0-33) U/L Alkaline Phosphata se 95 (35-105) IU/L Total Protein 6.5 L (6.6-8.7) g/dL Albumin 3.9 (3.5-5.2) g/dL Globulin 2.6 (1.3-4.6) g/dL Lipase 31 (13-60) U/L HCG, Qual Negative (Negative) Imaging Data ^: US: My impression: Ultrasound gallbladder, tech interpretation -gallstone present within the neck of the gallbladder but otherwise no acute findings. No wall thickening, no pericholecystic fluid, normal CBD. Discharge Plan Discharge Patient Disposition: Home Clinical Impression: Recurrent biliary colic Condition: Stable Prescriptions: [place] 5-325 mg tablet 1 tab PO Q6H PRN (Reason: pain) 5 Days Qty: 20 RF: 0 Zofran 4 mg tablet 4 mg PO Q6H PRN (Reason: nausea and vomiting) Qty: 20 RF: 0 Flagyl 500 mg tablet 500 mg PO TID 10 Days Qty: 30 RF: 0 Cipro 500 mg tablet 500 mg PO BID Qty: 20 RF: 0 No Action atorvastatin 20 mg tablet 20 mg PO .po q hs Qty: 30 RF: 1 lidocaine-epinephrine (PF) 2 %-1:200,000 solution 7 ml Infiltration ONCE PRN (Reason: anesthesia) Qty: 1 RF: 0 povidone-iodine [Betadine Swabsticks] 10 % swab 1 applic topical ONCE PRN (Reason: disinfection) Qty: 1 RF: 0 metformin 500 mg tablet extended release 24hr 500 mg PO DAILY Qty: 30 RF: 1 ferrous sulfate [Feosol] 325 mg (65 mg iron) tablet 325 mg PO DAILY RF: 0 hydrochlorothiazide 25 mg tablet 25 mg PO DAILY Qty: 90 RF: 1 lisinopril 5 mg tablet 5 mg PO DAILY Qty: 90 RF: 1 ondansetron 4 mg tablet,disintegrating 4 mg PO Q8H Qty: 20 RF: 0 [place] 5-325 mg tablet 1 tab PO Q6H PRN (Reason: pain) Qty: 14 RF: 0 Reglan 10 mg tablet 10 mg PO Q6H PRN (Reason: nausea and vomiting) Qty: 20 RF: 0 Protonix 20 mg tablet,delayed release (DR/EC) 20 mg PO DAILY 28 Days Qty: 30 RF: 0 Discharge Orders: Discharge Order (Routine); Ordered 04/11/20 Ordered By: Carmen Lynn Referrals: James Mcleod MD [Physician] - Vida Mayer DO [Primary Care Provider] - 1-3 days Discharge Diet: Advance as tolerated Discharge Activity: Increase activity as tolerated Patient Instructions: Biliary Colic (ED), Abdominal Pain (ED) Activity Restrictions/Additional Instructions: Please return to the ER immediately for any of the signs or symptoms listed on your discharge instruction sheets, worsening/changing of your symptoms, you are not getting better as quickly as expected, or for ANY other cause or concerns. Take the antibiotics as I have prescribed you. I have recommended and offered to admit you to the hospital for further work-up including a surgical consult but you have declined. If your symptoms change or worsen in any way please return to the ER immediately for recheck. Be certain to take the antibiotics I have given you. Follow a clear liquid diet and only advance it as you can tolerate. If for any reason you develop more pain, fever, began to vomit, or have any other complaints please return to the ER for recheck. Discharge Date/Time: 04/11/20 04:00 Coding Level of Care Code ED Marketing Content Manager for [facility] Exam Comprehensive
--- NOTE | 2020-04-11 01:43 | US_ITS ---
WS: [id number] ABDOMINAL ULTRASOUND LIMITED REASON FOR VISIT: Pain TECHNIQUE: Grayscale and Doppler ultrasound examination of the abdomen. FINDINGS: Pancreas: Visualized portions the pancreas were unremarkable. Abdominal aorta and IVC: Visualized portions of the abdominal aorta and IVC were unremarkable. Liver: Liver measures 19.1 cm in length. Increased echogenicity of the liver indicative of fatty infi ltration. Gallbladder: Gallbladder wall thickness measures 0.4 mm. Gallbladder wall is thickened without perich olecystic fluid. There is a large shadowing calculus in the neck of the gallbladder. Right kidney: Right kidney measures 13.6 cm x 5.9 cm x 5.2 cm. Right kidney cortex measures 1.4 cm. N o mass, hydronephrosis, or calculus. No free fluid in the abdomen. US/US gall bladder [id number] IMPRESSION: Cholelithiasis, fatty infiltration of the liver.
[2020-04-11 02:09] VITALS: BP 124/65; PULSE 64; RESP 18; O2SAT 98
[2020-04-11 02:16] LABS: Basophils # 0.1 10^3/uL (0.0-0.1); Basophils % 0.7 %; Eosinophils # 0.3 10^3/uL (0.0-0.8); Eosinophils % 2.1 %; Hematocrit 35.8 % (37.0-47.0); Hemoglobin 10.9 g/dL (11.5-15.3); Lymphocytes # 1.8 10^3/uL (0.8-4.8); Lymphocytes % 14.6 %; Mean Corpuscular HGB Conc 30.4 g/dL (30.0-36.0); Mean Corpuscular Hemoglobin 27.3 pg (28.0-34.0); Mean Corpuscular Volume 89.5 fL (81-99); Mean Platelet Volume 10.8 fL (7.4-10.4); Monocytes # 0.5 10^3/uL (0.2-0.9); Monocytes % 4.1 %; Neutrophils # 9.62 10^3/uL (1.8-7.7); Neutrophils % 77.5 %; Nucleated Red Blood Cells % 0 %; Platelet Count 257 10^3/cmm (130-400); Red Cell Distribution Width 14.9 % (12.1-15.1); White Blood Count 12.4 10^3/uL (4.0-10.0)
[2020-04-11] MEDS: ondansetron 2 mg/ML SDV 2 mL 4 MG IVP (02:22)
[2020-04-11] MEDS: sodium chloride 0.9% 1,000 ML 999 ML IV (02:22)
--- NOTE | 2020-04-11 02:23 | PC.NURSE ---
nOtified provider pt has no ride home, held Dilualid
--- NOTE | 2020-04-11 02:24 | PC.NURSE ---
Pt stated she is unable to void at this time.
[2020-04-11 02:26] LABS: HCG, Serum Qual Negative (Negative)
[2020-04-11 02:36] LABS: Alanine Aminotransferase 16 U/L (0-33); Albumin Level 3.9 g/dL (3.5-5.2); Alkaline Phosphatase 95 IU/L (35-105); Anion Gap 14.1 (5-19); Aspartate Amino Transferase 11 U/L (0-32); Blood Urea Nitrogen 9 mg/dL (6-20); Calcium 8.9 mg/dL (8.5-10.5); Carbon Dioxide 27 mmol/L (22-29); Chloride 102 mmol/L (98-107); Globulin 2.6 g/dL (1.3-4.6); Glomerular Filtration Rate 132.8 mL/min (90-130); Glucose 158 mg/dL (65-115); Lipase 31 U/L (13-60); Osmolality Calculated 290 mOsm/kg (285-295); Potassium 4.1 mmol/L (3.5-5.1); Sodium 139 mmol/L (136-145); Total Bilirubin 0.2 mg/dL (0.15-1.2); Total Protein 6.5 g/dL (6.6-8.7)
--- NOTE | 2020-04-11 03:12 | PC.NURSE ---
Pt stated she is curious what her lab values. 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
--- NOTE | 2020-04-11 03:16 | PC.NURSE ---
pt requested blanket and thinking about going home.
[2020-04-11] MEDS: metroNIDAZOLE 500 MG Tablet PO (04:01)
[2020-04-11] MEDS: ciprofloxacin 500 mg Tablet PO (04:01)
[2020-04-11 04:03] VITALS: BP 114/74; PULSE 62; RESP 18; TEMP 37; O2SAT 94
== END 2020-04-11 04:00 | disposition home or self-care (01) ==
PROVIDERS: Emergency Provider Emergency Medicine; PCP Family Medicine
DX: K80.50 Calculus of bile duct without cholangitis or cholecystitis without obstruction (principal); I10 Essential (primary) hypertension; E11.9 Type 2 diabetes mellitus without complications; Z87.891 Personal history of nicotine dependence
CPT/HCPCS: 12345; 76705; 80053; 83690; 83735; 84703; 85025; 96361; 96374; 96375; 99283; J2405; J7030

== ENCOUNTER 2020-04-17 04:57 | Observation (INO) | payer OTHER, SELFPAY ==
[2020-04-17] VITALS (15 sets, daily range): BP systolic 99–130; BP diastolic 53–82; PULSE 53–78; RESP 16–18; TEMP 36.3–37; O2SAT 95–100; BMI 55.7
--- NOTE | 2020-04-17 05:13 | ED_ITS ---
Documented by User: Carmen Lynn 04/17/20 18:40 HPI - Abdominal Pain General: Chief Complaint: Abdominal Pain Stated Complaint: Gallbladder Time Seen by Provider: 04/17/20 05:07 Source: patient Mode of arrival: ambulatory Limitations: no limitations History of Present Illness: HPI narrative: Micky is a nice 45-year-old female who comes in complaining of right upper quadrant abdominal pain. She has history of gallstones and is scheduled to have a laparoscopic cholecystectomy in May. Patient states she has had constant pain now for 3 days. It waxes and wanes in intensity but has been constant. She has severe nausea but has not vomited but she states she is not wanting to eat or drink very much. She denies any chest pain or shortness of breath. She denies any lower abdominal pain or urinary symptoms such as frequency, urgency or dysuria. There is no reported vaginal discharge or bleeding. Patient was seen here 6 days ago by me and is followed up with Dr. Gan for this problem. Patient denies any other complaints or concerns at this time but she states she just cannot get relief from her pain. Associated Symptoms: Reports nausea; Denies chills, coffee ground emesis, constipation, GI cramping, diarrhea, dysuria, fever(s), heartburn, hematochezia, hematuria, hematemesis, melena, syncope and vomiting Related Data: Date of Last Menstrual Period: 03/26/20 Review of Systems Const: Denies: fever(s), chills, body aches, fatigue, malaise or diaphoresis Eyes: Denies: change in vision, blurry vision, photophobia, eye discomfort, eye discharge, eye redness or yellow eyes ENMT: Denies: throat pain, odynophagia, hoarseness, swelling of lips/tongue, ear or mastoid pain, ear discharge, change in hearing or nasal discharge Card: Denies: chest pain, palpitations, irregular heart rhythm, edema, lightheadedness, syncope, pre-syncope, dyspnea on exertion or orthopnea Resp: Denies: dyspnea, productive cough, non-productive cough, wheezing, hemoptysis or chest congestion GI: Reports: abdominal pain and nausea; Denies: vomiting, hematemesis, coffee ground emesis, heartburn, diarrhea, constipation, GI cramping, hematochezia or melena : Denies: flank pain, dysuria, urinary frequency, urinary urgency or hematuria Musc: Denies: neck pain, back pain, extremity pain, extremity swelling, joint pain, joint swelling, joint redness, joint warmth or joint stiffness Skin/Breast: Denies: rash, pruritus, erythema, skin pain or skin tenderness Neuro: Denies: headache(s), numbness in extremities, weakness in extremities, sensory changes, lack of coordination, difficulty walking, dizziness, vertigo, confusion, Slurred speech present or seizure-like activity Kvng/Lymph: Denies: easy bruising, easy bleeding, petechiae, purpura or enlarged lymph nodes All/Imm: Denies: urticaria, throat swelling, tongue swelling, facial swelling or acute wheezing PFSH ED PFSH: Medical History Arthritis of both knees Benign essential HTN Colon polyps Fatty liver Gallstone Irritable bowel syndrome with constipation and diarrhea Obesity PCOS (polycystic ovarian syndrome) Type 2 diabetes mellitus, without long-term current use of insulin Surgical History History of appendectomy (~2018) History of tonsillectomy and adenoidectomy Family History Father Cancer colon Other CAD (coronary artery disease) Diabetes Denies family history of Anesthesia complication Bleeding disorder Social History Smoking and tobacco status: former smoker Alcohol intake: current Alcohol intake frequency: holidays/special occasions only Alcohol type: wine Adopted: No Caregiver/support person: Yes Lives independently: Yes Household members: none Housing: Apartment Marital status: Single service: No Current occupational exposures/hazards: No Pets and animals: No History of recent travel: No Sexually active: No Current gender identity: Female Emmy/Gnosticism: Cheondoism Special emmy needs: No Agree to transfusion: No Financial difficulty paying for basics: Decline to Answer Female Reproductive History: Date of last menstrual period: 03/26/20 Physical Exam Const: COMMON NORMALS: no acute distress, patient oriented x3, no limitations and alert GENERAL APPEARANCE: cooperative HENMT: COMMON NORMALS: normocephalic, atraumatic, external ears normal, EAC's normal and Normal external nose present HEAD & SCALP: normal to inspection, normocephalic and atraumatic FACE & SINUS: normal facial exam and face symmetric NOSE: Normal external nose present and Normal nares present EXTERNAL EAR: Yes external ears normal EXTERNAL AUDITORY CANAL: EAC's normal MOUTH: Normal oral and palatal mucosa present, lip normal and tongue normal Eye: COMMON NORMALS: Equal, round and reactive pupils present and conjunctivae normal GENERAL EYE: appearance normal, both eyes and all related structures ALIGNMENT: Yes alignment normal PERIORBITAL: periorbital findings normal EYELID: eyelids normal CONJUNCTIVA: Yes conjunctivae normal SCLERA: sclerae normal PUPIL: Yes Equal, round and reactive pupils present Neck/C-Spine: COMMON NORMALS: full ROM, no lymphadenopathy, supple, no meningeal signs and no JVD GENERAL: Yes normal visual inspection and Yes trachea midline Chest: COMMONS NORMALS: normal inspection of the chest and normal palpation of entire chest wall Resp: COMMON NORMALS: normal respiratory effort, No retractions, No use of accessory muscles and clear to auscultation bilaterally EFFORT & INSPECTION: Yes able to speak in complete sentences and Yes symmetric chest movement AUSCULTATION: clear to auscultation bilaterally, no crackles, no rales, no rhonchi and no wheezes Cardio: COMMON NORMALS: no JVD, regular rate, regular rhythm, S1 normal heart sound present and S2 normal heart sound present RATE: regular rate RHYTHM: regular rhythm HEART SOUNDS: S1 normal heart sound present, S2 normal heart sound present, no click, no gallops, no murmurs and no rubs GI: COMMON NORMALS: Soft to palpation and No hepatosplenomegaly present PALPATION: Yes Soft to palpation, Yes Tenderness to palpation present (GI) Details: RUQ, No Guarding due to palpation present (GI), No Rigid due to palpation, Yes No hepatosplenomegaly present, No Hernia present, No Palpable mass present and No Pulsatile mass present : COMMON NORMALS: Yes no CVA tenderness BLADDER/KIDNEY EXAM: Yes no CVA tenderness EXTERNAL FEMALE EXAM: No Hernia present Back/Pelvis: COMMON NORMALS: no CVA tenderness, thoracic and lumbar spine normal to inspection, no thoracic nor lumbar tenderness and thoraco-lumbar ROM normal Extremity: COMMON NORMALS: normal to inspection, full ROM, capillary refill normal, no joint enlargement, no clubbing, cyanosis or edema and no calf tenderness Neuro: COMMON NORMALS: patient oriented x3, CN's II-XII intact bilaterally, moves all extremities, no focal motor deficits and no sensory deficits noted SENSORIUM/ORIENTATION: Yes alert MENINGEAL SIGNS: Yes no meningeal signs SPEECH: speech normal Psych: COMMON NORMALS: mental status grossly normal, Normal thought process present, cooperative, normal affect, speech normal and activity/motor behavior normal SPEECH: Yes normal speech THOUGHT PROCESS: Normal thought process present Skin: COMMON NORMALS: no rashes or lesions noted, turgor normal, no jaundice, no petechiae and no mottling GENERAL SKIN EXAM: no rashes or lesions noted and turgor normal Course Vital Signs: Vital signs: Vital Signs Temperature 98.2 F 04/18/20 14:24 Pulse Rate 67 04/18/20 14:24 Respiratory Rate 18 04/18/20 14:24 Blood Pressure 122/77 04/18/20 14:24 Pulse Oximetry 94 04/18/20 14:24 MDM - Abdominal Pain MDM Narrative: Medical decision making narrative: 599 -Case turned over to Dr. Cabrera at change of shift. Lab Data: Labs: Lab Results 04/17/20 04/17/20 04/17/20 Range/Units 05:40 05:40 05:40 WBC 10.7 H (4.0-10.0) 10^3/ uL RBC 4.08 L (4.1-5.3) 10^6/u L Hgb 11.2 L (11.5-15.3) g/dL Hct 36.0 L (37.0-47.0) % MCV 88.2 (81-99) fL MCH 27.5 L (28.0-34.0) pg MCHC 31.1 (30.0-36.0) g/dL RDW 15.1 (12.1-15.1) % Plt Count 261 (130-400) 10^3/c mm MPV 11.0 H (7.4-10.4) fL Neut % (Auto) 77.0 % Lymph % (Auto) 13.6 % Hitchcock % (Auto) 4.6 % Eos % (Auto) 3.5 % Baso % (Auto) 0.7 % Neut # (Auto) 8.24 H (1.8-7.7) 10^3/u L Lymph # (Auto) 1.5 (0.8-4.8) 10^3/u L Hitchcock # (Auto) 0.5 (0.2-0.9) 10^3/u L Eos # (Auto) 0.4 (0.0-0.8) 10^3/u L Baso # (Auto) 0.1 (0.0-0.1) 10^3/u L Nucleated RBC % (a uto) 0 % Nucleated RBCs # 0.0 /100WBC Sodium 137 (136-145) mmol/L Potassium 4.7 (3.5-5.1) mmol/L Chloride 101 (98-107) mmol/L Carbon Dioxide 24 (22-29) mmol/L Anion Gap 16.7 (5-19) BUN 10 (6-20) mg/dL Creatinine 0.4 L (0.5-0.9) mg/dL GFR Calculation 171.8 H (90-130) mL/min Glucose 106 (65-115) mg/dL Calculated Osmolal ity 283 L (285-295) mOsm/k g Lactic Acid 1.2 (0.5-2.2) mmol/L Calcium 8.6 (8.5-10.5) mg/dL Total Bilirubin 0.2 (0.15-1.2) mg/dL AST 19 (0-32) U/L ALT 19 (0-33) U/L Alkaline Phosphata se 76 (35-105) IU/L Total Protein 6.9 (6.6-8.7) g/dL Albumin 4.0 (3.5-5.2) g/dL Globulin 2.9 (1.3-4.6) g/dL Lipase 193 H (13-60) U/L HCG, Qual (Negative) 04/17/20 Range/Units 05:40 WBC (4.0-10.0) 10^3/ uL RBC (4.1-5.3) 10^6/u L Hgb (11.5-15.3) g/dL Hct (37.0-47.0) % MCV (81-99) fL MCH (28.0-34.0) pg MCHC (30.0-36.0) g/dL RDW (12.1-15.1) % Plt Count (130-400) 10^3/c mm MPV (7.4-10.4) fL Neut % (Auto) % Lymph % (Auto) % Hitchcock % (Auto) % Eos % (Auto) % Baso % (Auto) % Neut # (Auto) (1.8-7.7) 10^3/u L Lymph # (Auto) (0.8-4.8) 10^3/u L Hitchcock # (Auto) (0.2-0.9) 10^3/u L Eos # (Auto) (0.0-0.8) 10^3/u L Baso # (Auto) (0.0-0.1) 10^3/u L Nucleated RBC % (a uto) % Nucleated RBCs # /100WBC Sodium (136-145) mmol/L Potassium (3.5-5.1) mmol/L Chloride (98-107) mmol/L Carbon Dioxide (22-29) mmol/L Anion Gap (5-19) BUN (6-20) mg/dL Creatinine (0.5-0.9) mg/dL GFR Calculation (90-130) mL/min Glucose (65-115) mg/dL Calculated Osmolal ity (285-295) mOsm/k g Lactic Acid (0.5-2.2) mmol/L Calcium (8.5-10.5) mg/dL Total Bilirubin (0.15-1.2) mg/dL AST (0-32) U/L ALT (0-33) U/L Alkaline Phosphata se (35-105) IU/L Total Protein (6.6-8.7) g/dL Albumin (3.5-5.2) g/dL Globulin (1.3-4.6) g/dL Lipase (13-60) U/L HCG, Qual Negative (Negative) Discharge Plan Discharge Patient Disposition: Admitted As Inpatient Admit Provider: Natanael Gan Condition: Stable Discharge Diet: As Directed Discharge Activity: Increase activity as tolerated Sign Out Sign Out Data: Patient Sign Out occurred on 04/17/20 at 06:09. Patient's care was discussed, and care was transferred from to Wojciech Cabrera DO. 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 Documented by User: Wojciech Cabrera DO 04/21/20 12:58 HPI - Abdominal Pain General: Chief Complaint: Abdominal Pain Stated Complaint: Gallbladder Time Seen by Provider: 04/17/20 05:07 PFSH ED PFSH: Medical History Arthritis of both knees Benign essential HTN Colon polyps Fatty liver Gallstone Irritable bowel syndrome with constipation and diarrhea Obesity PCOS (polycystic ovarian syndrome) Type 2 diabetes mellitus, without long-term current use of insulin Surgical History History of appendectomy (~2017) History of tonsillectomy and adenoidectomy Family History Father Cancer colon Other CAD (coronary artery disease) Diabetes Denies family history of Anesthesia complication Bleeding disorder Social History Smoking and tobacco status: former smoker Alcohol intake: current Alcohol intake frequency: holidays/special occasions only Alcohol type: wine Adopted: No Caregiver/support person: Yes Lives independently: Yes Household members: none Housing: Apartment Marital status: Single service: No Current occupational exposures/hazards: No Pets and animals: No History of recent travel: No Sexually active: No Current gender identity: Female Emmy/Gnosticism: Cheondoism Special emmy needs: No Agree to transfusion: No Financial difficulty paying for basics: Decline to Answer Course Vital Signs: Vital signs: Vital Signs Temperature 98.2 F 04/18/20 14:24 Pulse Rate 67 04/18/20 14:24 Respiratory Rate 18 04/18/20 14:24 Blood Pressure 122/77 04/18/20 14:24 Pulse Oximetry 94 04/18/20 14:24 MDM - Abdominal Pain MDM Narrative: Medical decision making narrative: Patient is acute cholecystitis discussed Dr. Gan for admission for cholecystectomy. Dr. Gan to see the patient in the department. Lab Data: Labs: Lab Results 04/17/20 04/17/20 04/17/20 Range/Units 05:40 05:40 05:40 WBC 10.7 H (4.0-10.0) 10^3/ uL RBC 4.08 L (4.1-5.3) 10^6/u L Hgb 11.2 L (11.5-15.3) g/dL Hct 36.0 L (37.0-47.0) % MCV 88.2 (81-99) fL MCH 27.5 L (28.0-34.0) pg MCHC 31.1 (30.0-36.0) g/dL RDW 15.1 (12.1-15.1) % Plt Count 261 (130-400) 10^3/c mm MPV 11.0 H (7.4-10.4) fL Neut % (Auto) 77.0 % Lymph % (Auto) 13.6 % Hitchcock % (Auto) 4.6 % Eos % (Auto) 3.5 % Baso % (Auto) 0.7 % Neut # (Auto) 8.24 H (1.8-7.7) 10^3/u L Lymph # (Auto) 1.5 (0.8-4.8) 10^3/u L Hitchcock # (Auto) 0.5 (0.2-0.9) 10^3/u L Eos # (Auto) 0.4 (0.0-0.8) 10^3/u L Baso # (Auto) 0.1 (0.0-0.1) 10^3/u L Nucleated RBC % (a uto) 0 % Nucleated RBCs # 0.0 /100WBC Sodium 137 (136-145) mmol/L Potassium 4.7 (3.5-5.1) mmol/L Chloride 101 (98-107) mmol/L Carbon Dioxide 24 (22-29) mmol/L Anion Gap 16.7 (5-19) BUN 10 (6-20) mg/dL Creatinine 0.4 L (0.5-0.9) mg/dL GFR Calculation 171.8 H (90-130) mL/min Glucose 106 (65-115) mg/dL Calculated Osmolal ity 283 L (285-295) mOsm/k g Lactic Acid 1.2 (0.5-2.2) mmol/L Calcium 8.6 (8.5-10.5) mg/dL Total Bilirubin 0.2 (0.15-1.2) mg/dL AST 19 (0-32) U/L ALT 19 (0-33) U/L Alkaline Phosphata se 76 (35-105) IU/L Total Protein 6.9 (6.6-8.7) g/dL Albumin 4.0 (3.5-5.2) g/dL Globulin 2.9 (1.3-4.6) g/dL Lipase 193 H (13-60) U/L HCG, Qual (Negative) 04/17/20 Range/Units 05:40 WBC (4.0-10.0) 10^3/ uL RBC (4.1-5.3) 10^6/u L Hgb (11.5-15.3) g/dL Hct (37.0-47.0) % MCV (81-99) fL MCH (28.0-34.0) pg MCHC (30.0-36.0) g/dL RDW (12.1-15.1) % Plt Count (130-400) 10^3/c mm MPV (7.4-10.4) fL Neut % (Auto) % Lymph % (Auto) % Hitchcock % (Auto) % Eos % (Auto) % Baso % (Auto) % Neut # (Auto) (1.8-7.7) 10^3/u L Lymph # (Auto) (0.8-4.8) 10^3/u L Hitchcock # (Auto) (0.2-0.9) 10^3/u L Eos # (Auto) (0.0-0.8) 10^3/u L Baso # (Auto) (0.0-0.1) 10^3/u L Nucleated RBC % (a uto) % Nucleated RBCs # /100WBC Sodium (136-145) mmol/L Potassium (3.5-5.1) mmol/L Chloride (98-107) mmol/L Carbon Dioxide (22-29) mmol/L Anion Gap (5-19) BUN (6-20) mg/dL Creatinine (0.5-0.9) mg/dL GFR Calculation (90-130) mL/min Glucose (65-115) mg/dL Calculated Osmolal ity (285-295) mOsm/k g Lactic Acid (0.5-2.2) mmol/L Calcium (8.5-10.5) mg/dL Total Bilirubin (0.15-1.2) mg/dL AST (0-32) U/L ALT (0-33) U/L Alkaline Phosphata se (35-105) IU/L Total Protein (6.6-8.7) g/dL Albumin (3.5-5.2) g/dL Globulin (1.3-4.6) g/dL Lipase (13-60) U/L HCG, Qual Negative (Negative) Discharge Plan Discharge Patient Disposition: Admitted As Inpatient Admit Provider: Natanael Gan Condition: Stable Discharge Diet: As Directed Discharge Activity: Increase activity as tolerated Sign Out Sign Out Data: Patient Sign Out occurred on 04/17/20 at 06:09. Patient's care was discussed, and care was transferred from to Wojciech Cabrera DO. 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
--- NOTE | 2020-04-17 05:15 | US_ITS ---
WS: [id number] ULTRASOUND ABDOMEN LIMITED CLINICAL INFORMATION: Pain COMPARISON: April 11, 2020 FINDINGS: Liver Size: Enlarged Craniocaudal length: 22.7 cm. Echogenicity: Coarse echogenicity Surface nodularity: None. Mass (size and location): None. Bile ducts Intrahepatic ducts: Normal. Common bile duct diameter: 0.6 cm. Gallbladder Cholelithiasis with shadowing stone at the gallbladder neck. Gallstones: Present Gallbladder sludge: None. Gallbladder wall thickening: Present Pericholecystic fluid: None. Sonographic Tejada sign: Absent. Pancreas Normal as visualized. Right kidney: Normal. Hydronephrosis: None. Size: 13.0 cm x 5.8 cm x 5.4 cm. Abdominal aorta and IVC Visualized portions are normal. Ascites: None. US/US gall bladder 11456 IMPRESSION: 1. Hepatomegaly with diffuse fatty infiltration. 2. Cholelithiasis with gallbladder wall thickening measuring 4.3 mm. Shadowing 2.0 cm stone in the gallbladder neck. Normal common bile duct. No pericholecys tic fluid. Gallbladder appears similar to previous. 3. No hydronephrosis in right kidney.
[2020-04-17] MEDS: HYDROmorphone 1 mg/mL INJ 1 mL IVP ×2 (05:33→06:40)
[2020-04-17] MEDS: ondansetron 2 mg/ML SDV 2 mL 4 MG IVP ×2 (05:34→23:19)
[2020-04-17] MEDS: sodium chloride 0.9% 1,000 ML 100 ML IV ×2 (05:34→17:49)
[2020-04-17 05:52] LABS: Basophils # 0.1 10^3/uL (0.0-0.1); Basophils % 0.7 %; Eosinophils # 0.4 10^3/uL (0.0-0.8); Eosinophils % 3.5 %; Hemoglobin 11.2 g/dL (11.5-15.3); Lymphocytes # 1.5 10^3/uL (0.8-4.8); Lymphocytes % 13.6 %; Mean Corpuscular HGB Conc 31.1 g/dL (30.0-36.0); Mean Corpuscular Hemoglobin 27.5 pg (28.0-34.0); Mean Corpuscular Volume 88.2 fL (81-99); Monocytes # 0.5 10^3/uL (0.2-0.9); Monocytes % 4.6 %; Neutrophils # 8.24 10^3/uL (1.8-7.7); Nucleated Red Blood Cells % 0 %; Platelet Count 261 10^3/cmm (130-400); Red Blood Count 4.08 10^6/uL (4.1-5.3); Red Cell Distribution Width 15.1 % (12.1-15.1); White Blood Count 10.7 10^3/uL (4.0-10.0)
[2020-04-17 06:02] LABS: HCG, Serum Qual Negative (Negative)
[2020-04-17 06:07] LABS: Alkaline Phosphatase 76 IU/L (35-105); Blood Urea Nitrogen 10 mg/dL (6-20); Calcium 8.6 mg/dL (8.5-10.5); Carbon Dioxide 24 mmol/L (22-29); Chloride 101 mmol/L (98-107); Globulin 2.9 g/dL (1.3-4.6); Glomerular Filtration Rate 171.8 mL/min (90-130); Glucose 106 mg/dL (65-115); Lactic Sepsis W/Reflex 1.2 mmol/L (0.5-2.2); Lipase 193 U/L (13-60); Osmolality Calculated 283 mOsm/kg (285-295); Sodium 137 mmol/L (136-145); Total Bilirubin 0.2 mg/dL (0.15-1.2); Total Protein 6.9 g/dL (6.6-8.7)
[2020-04-17 06:14] LABS: Anion Gap 16.7 (5-19); Aspartate Amino Transferase 19 U/L (0-32); Potassium 4.7 mmol/L (3.5-5.1)
[2020-04-17 06:15] LABS: Alanine Aminotransferase 19 U/L (0-33)
[2020-04-17] MEDS: metoclopramide 5 mg/mL SDV 2 mL 10 MG IVP (06:41)
[2020-04-17] MEDS: LORazepam 2 mg/mL INJ 1 mL 1 MG IVP (08:48)
--- NOTE | 2020-04-17 09:27 | PM.CONSULT ---
Providers/Reason For Consult Consulting Physican/Specialty*: vini Mathewist Reason for Consult*: Medical management Primary Care Provider: Vida Mayer DO History of Present Illness History of Present Illness Ana Osman is a 45 year old female who presented to the emergency department with abdominal discomfort. Patient reports she is currently being evaluated for gallbladder issues. She reports she was to have her gallbladder out in mid May. She has been having attacks of pain, approximately every other day. She describes the pain is right upper quadrant, epigastric area lasting from hours and associated with nausea. Over the last 3 days she has felt a little different. The discomfort is in the epigastric area as well. She has not had vomiting but has had enough nausea she has not been able to eat normally. She has been taking liquids that she can in small amounts. She reports she has been taking ibuprofen for pain 600 mg around 2 times daily. She denies any blood in her stool but reports her stool is slightly dark because of iron that she takes. She denies any fevers. She states her pain seems to radiate into her mid back. From my understanding the emergency department was concerned that she might have pancreatitis as lipase was slightly high. Review of Systems General: Reports: 10 or more systems reviewed and unremarkable except in HPI and below Const: Reports: change in appetite; Denies: fever(s) or chills Eyes: Denies: change in vision ENMT: Denies: throat pain Card: Denies: chest pain Resp: Denies: dyspnea GI: Reports: abdominal pain and nausea : Denies: flank pain Musc: Denies: neck pain Skin/Breast: Denies: rash Neuro: Denies: headache(s) Psych: Denies: anxiety Endo: Denies: polyuria Kvng/Lymph: Denies: easy bruising All/Imm: Denies: urticaria Meds/Allergies Home Medications and Allergies Home Medications Medication Instructions Recorded Confirmed Last Taken Type hydrochlorothiazide 25 mg tablet 25 mg PO DAILY #90 tab 10/11/19 04/17/20 04/16/20 Rx lisinopril 5 mg tablet 5 mg PO DAILY #90 tab 10/11/19 04/17/20 04/16/20 Rx ferrous sulfate 325 mg (65 mg 325 mg PO DAILY tab 02/20/20 04/17/20 04/16/20 History iron) tablet hydrocodone-acetaminophen [Flippin] 1 tab PO Q6H PRN #14 tab 02/20/20 04/17/20 Unknown Rx metformin 500 mg tablet,extended 500 mg PO DAILY #30 tab 02/20/20 04/17/20 04/16/20 Rx release 24hr ciprofloxacin HCl [Cipro] 500 mg PO BID #20 tab 04/11/20 04/17/20 04/16/20 Rx metronidazole [Flagyl] 500 mg PO TID 10 Days #30 tab 04/11/20 04/17/20 04/16/20 Rx atorvastatin 20 mg PO BEDTIME 04/17/20 04/17/20 04/14/20 History ondansetron 4 mg PO Q8H PRN 04/17/20 04/17/20 04/16/20 History Allergies Allergy/AdvReac Type Severity Reaction Status Date / Time cephalexin [From Keflex] Allergy rash Verified 04/14/20 17:08 clindamycin Allergy shortness Verified 04/14/20 17:08 of breath Penicillins Allergy rash Verified 04/14/20 17:08 Current Medications Current Medications Generic Name Dose Route Start Last Admin Trade Name Freq PRN Reason Stop Dose Admin Sodium Chloride 1,000 mls @ 100 mls/hr 04/17/20 05:15 04/17/20 08:56 Sodium Chloride 0.9% IV Infused .Q10H CHENG Infusion PFSH Acute PFSH: Medical History Arthritis of both knees Benign essential HTN Colon polyps Fatty liver Gallstone Irritable bowel syndrome with constipation and diarrhea Obesity PCOS (polycystic ovarian syndrome) Type 2 diabetes mellitus, without long-term current use of insulin Surgical History History of appendectomy (~2018) History of tonsillectomy and adenoidectomy Family History Father Cancer colon Other CAD (coronary artery disease) Diabetes Denies family history of Anesthesia complication Bleeding disorder Social History Smoking and tobacco status: former smoker Alcohol intake: current Alcohol intake frequency: holidays/special occasions only Alcohol type: wine Adopted: No Caregiver/support person: Yes Lives independently: Yes Household members: none Housing: Apartment Marital status: Single service: No Current occupational exposures/hazards: No Pets and animals: No History of recent travel: No Sexually active: No Current gender identity: Female Emmy/Holiness: Sabianism Special emmy needs: No Agree to transfusion: No Financial difficulty paying for basics: Decline to Answer Female Reproductive History: Date of last menstrual period: 03/26/20 Vitals/I&O/Wt Last Vital Signs Temp 97.3 F L 04/17/20 04:59 Pulse 53 L 04/17/20 08:00 Resp 18 04/17/20 06:40 BP 118/79 04/17/20 08:00 Pulse Ox 97 04/17/20 08:00 04/16/20 04/17/20 04/17/20 22:59 06:59 14:59 Intake Total 1000 / 1000 Balance 1000 / 1000 Weight last 48 hrs Weight 133.81 kg Physical Exam Narrative: EXAM NARRATIVE: General exam is a white female, obese, in no apparent distress HEENT: Pupils equally round. Oropharynx clear. Neck is supple no lymphadenopathy or thyromegaly Cardiovascular regular rate and rhythm, no murmur Lungs clear no wheezing or crackles Abdomen is soft, obese. Nontender. Difficult to tell if any organomegaly is present. Tenderness is present in the right upper quadrant area, as well as the epigastric area to palpation. Positive bowel sounds. Extremities no cyanosis clubbing or edema, cap refill brisk Skin no rash Neuro no obvious focal deficits. Data Other Data: Other data: Calcium is 8.6 Lactic acid 1.2 LFTs normal Lipase 193 hCG negative Gallbladder ultrasound demonstrates hepatomegaly, cholelithiasis with gallbladder wall thickening, with shadowing of a gallstone in the gallbladder neck. Normal common bile duct. A&P Assessment and plan (1) Abdominal pain: This may represent biliary colic considering thickened gallbladder wall on ultrasound as well as likely gallbladder neck stone. However gastritis/duodenitis is also in the differential secondary to ibuprofen use over the last 2 weeks. Doubt pancreatitis even though lipase slightly high. This is likely secondary to persistent nausea, episode of vomiting. Urinalysis ordered. Repeat lipase tomorrow Hydration Protonix IV Pain control Avoid anti-inflammatories I do not see an indication for antibiotics currently but will defer to surgery. Status: Acute (2) Type 2 diabetes mellitus, without long-term current use of insulin: Sliding scale insulin. Hold Metformin. Status: Chronic Qualifiers: Diabetes mellitus complication status: without complication Qualified Code(s): E11.9 - Type 2 diabetes mellitus without complications (3) Dyslipidemia: Continue home medications Status: Acute (4) Recurrent biliary colic: Surgery to address Status: Acute (5) Iron deficiency anemia: Hemoglobin 11.2, and overall stable Status: Chronic Qualifiers: Iron deficiency anemia type: other iron deficiency Qualified Code(s): D50.8 - Other iron deficiency anemias Additional A&P Information Hypertension. Hold hydrochlorothiazide currently. May continue low-dose lisinopril. Multiple other medical problems as listed in her past medical history Full code SCDs for DVT prophylaxis. Pharmacological prophylaxis can be addressed by surgery, in case a surgical procedure is warranted. Thank you for this consultation. Covid PCR ordered secondary to presurgical screening policy. Consult Attestations Medical Necessity Statement: As per primary Time Spent in Patient Care: Greater than 35 minutes Coding Level of Care Code Acute Product Management Internship for [facility] Fwd Diagnoses Abdominal pain R10.9 Type 2 diabetes mellitus, without long-term current use of insulin E11.9 Diabetes mellitus complication status: without complication Dyslipidemia E78.5 Recurrent biliary colic K80.50 Iron deficiency anemia D50.8 Iron deficiency anemia type: other iron deficiency
--- NOTE | 2020-04-17 12:47 | P.HP_ITS ---
Providers/Chief Complaint Admitting Physician: Natanael Gan MD Primary Care Provider: Vida Mayer DO Chief Complaint: Gallbladder History of Present Illness Chief Complaint: Abdominal pain HPI office visit 04/14/2020 This is a pleasant 45 years old female patient presents today with history of symptomatic cholelithiasis in the presence of fatty liver. Patient reports that her weight is 290 pounds dropped from 325 pounds. Devious ultrasound of the liver and gallbladder back in July 2019; Liver: 25.4 cm in length. Markedly enlarged liver with diffuse hepatic steatosi s. Obscuration of the portal vein triads. No bile duct dilatation. Gallbladder: Normally distended gallbladder with a stone in the gallbladder neck measuring 2.4 cm. No pericholecystic fluid or gallbladder wall thickening. CBD: 5.0 mm Pancreas: Normal size and echogenicity. Right kidney: 13.1 cm in length. Normal echogenicity with no mass or hydronephrosis. Aorta and IVC: Unremarkable. No ascites. US/US gall bladder [id number] IMPRESSION: 1. Cholelithiasis without evidence for acute cholecystitis. 2. No bile duct dilatation. 3. Severe hepatic steatosis and hepatomegaly. After patient had lost some weight repeat ultrasound showed; Pancreas: Visualized portions the pancreas were unremarkable. Abdominal aorta and IVC: Visualized portions of the abdominal aorta and IVC were unremarkable. Liver: Liver measures 19.1 cm in length. Increased echogenicity of the liver indicative of fatty infiltration. Gallbladder: Gallbladder wall thickness measures 0.4 mm. Gallbladder wall is thickened without pericholecystic fluid. There is a large shadowing calculus in the neck of the gallbladder. Right kidney: Right kidney measures 13.6 cm x 5.9 cm x 5.2 cm. Right kidney cortex measures 1.4 cm. No mass, hydronephrosis, or calculus. No free fluid in the abdomen. US/US gall bladder [id number] IMPRESSION: Cholelithiasis, fatty infiltration of the liver. Patient presents to my office today with her symptoms as it has been getting worse and she has been working hard to lose weight as well, she reports to me problem with anesthesia when she had her appendix removed back in July 2019 in [place] and she reports that she had issues with the extubation process. Likely to her obesity status Interim history ER visit 04/17/2020 Ms Ana Osman is a 45 year old female morbidly obese patient with a current BMI of 56, patient was seen recently in my office last Tuesday for evaluation for gallbladder disease and the plan was to perform a laparoscopic cholecystectomy based on her calendar as she prefers to be taking place in May as she does work as a educational assistant teacher and according to her, that would match better her time off. Apparently the patient had developed worsening abdominal pain particularly in the right upper quadrant associated with nausea and vomiting and she undergone work-up in the emergency department and found a mild elevation of lipase and a repeat ultrasound of the gallbladder showed: 1. Hepatomegaly with diffuse fatty infiltration. 2. Cholelithiasis with gallbladder wall thickening measuring 4.3 mm. Shadowing 2.0 cm stone in the gallbladder neck. Normal common bile duct. No pericholecysti c fluid. Gallbladder appears similar to previous. 3. No hydronephrosis in right kidney. Apparently the liver length increased up to 22.5 cm in comparison to the most recent ultrasound gallbladder that measures 19.1 cm. Patient has been on clear liquids which did include higher calorie count as well. General surgery was contacted for evaluation, patient was seen and evaluated in the emergency department room #16 Review of Systems General: Reports: 10 or more systems reviewed and unremarkable except in HPI and below Medications/Allergies Home Medications Medication Instructions Recorded Confirmed Last Taken Type ferrous sulfate 325 mg (65 mg 325 mg PO DAILY tab 02/20/20 04/17/20 04/16/20 History iron) tablet hydrocodone-acetaminophen [[place]] 1 tab PO Q6H PRN #14 tab 02/20/20 04/17/20 Unknown Rx metformin 500 mg tablet,extended 500 mg PO DAILY #30 tab 02/20/20 04/17/20 04/16/20 Rx release 24hr ciprofloxacin HCl [Cipro] 500 mg PO BID #20 tab 04/11/20 04/17/20 04/16/20 Rx metronidazole [Flagyl] 500 mg PO TID 10 Days #30 tab 04/11/20 04/17/20 04/16/20 Rx atorvastatin 20 mg PO BEDTIME 04/17/20 04/17/20 04/14/20 History hydrochlorothiazide 25 mg tablet 25 mg PO DAILY #30 tab 04/17/20 Unknown Rx lisinopril 5 mg tablet 5 mg PO DAILY #30 tab 04/17/20 Unknown Rx ondansetron 4 mg PO Q8H PRN 04/17/20 04/17/20 04/16/20 History Allergies Allergy/AdvReac Type Severity Reaction Status Date / Time cephalexin [From Keflex] Allergy rash Verified 04/17/20 12:52 clindamycin Allergy shortness Verified 04/17/20 12:52 of breath Penicillins Allergy rash Verified 04/17/20 12:52 PFSH Acute PFSH: Medical History Arthritis of both knees Benign essential HTN Colon polyps Fatty liver Gallstone Irritable bowel syndrome with constipation and diarrhea Obesity PCOS (polycystic ovarian syndrome) Type 2 diabetes mellitus, without long-term current use of insulin Surgical History History of appendectomy (~2018) History of tonsillectomy and adenoidectomy Family History Father Cancer colon Other CAD (coronary artery disease) Diabetes Denies family history of Anesthesia complication Bleeding disorder Social History Smoking and tobacco status: former smoker Alcohol intake: current Alcohol intake frequency: holidays/special occasions only Alcohol type: wine Adopted: No Caregiver/support person: Yes Lives independently: Yes Household members: none Housing: Apartment Marital status: Single service: No Current occupational exposures/hazards: No Pets and animals: No History of recent travel: No Sexually active: No Current gender identity: Female Emmy/Yarsani: Quaker Special emmy needs: No Agree to transfusion: No Financial difficulty paying for basics: Decline to Answer Female Reproductive History: Date of last menstrual period: 03/26/20 Vitals/I&O/Wt Last Vital Signs Temp 97.3 F L 04/17/20 04:59 Pulse 57 L 04/17/20 10:00 Resp 17 04/17/20 10:00 BP 99/53 04/17/20 10:00 Pulse Ox 96 04/17/20 10:00 04/16/20 04/17/20 04/17/20 22:59 06:59 14:59 Intake Total 1000 / 1000 Balance 1000 / 1000 Weight last 48 hrs Weight 295 lb Physical Exam Narrative: EXAM NARRATIVE: Patient is conscious alert oriented X3 BMI 56 Head and neck examination PERRLA no masses no cervical lymphadenopathy no jaundice Abdomen nontender except mildly at the right upper quad nondistended soft no organomegaly guarding or rigidity/no signs of peritonitis Morbidly obese Extremities no cyanosis no clubbing no edema Data : 04/17/20 05:40 04/17/20 05:40 A&P Assessment and plan (1) Abdominal pain: At this point will follow on the patient clinically and repeat labs in the morning in the form of CBC CMP and repeat lipase enzyme serum level. I did discuss with the patient the rationale about her liver size could be an issue interfering with her surgery and overall preference is to downsize the volume of the liver if possible and have her on liquid protein diet from 7 to 10 days. We will have the patient on n.p.o. status and IV fluid resuscitation Repeated physical examination Pharmacologic DVT prophylaxis assurance and education I appreciate the hospitalist input All questions have been answered and all concerns have been addressed to patient's satisfaction. Status: Acute Attestations Medical Necessity Statement*: Observation to continue IV fluid resuscitation and monitor lipase levels for potential surgical intervention during this hospitalization Time Spent in Patient Care: (>than 50% of time spent in counselling and/or direct pt care on unit) . Coding Level of Care Code Acute Ceramic Tiler for Amador Emerson Diagnoses Abdominal pain R10.9
[2020-04-17 13:11] LABS: Add Urine Microscopic? NO
[2020-04-17 13:32] LABS: Bilirubin Urine Neg (Negative); Blood Urine Neg (Negative); Glucose Urine UA Norm (Normal); Ketones Urine Negative (Negative); Leukocyte Esterase Urine Negative (Negative); Nitrate Urine Negative (Negative); Protein Urine Neg (Negative); Specific Gravity, Urine 1.025 (1.005-1.030); Urine Appearance Clear (CLEAR); Urine Color Yellow (Yellow); Urobilinogen Urine Norm (Negative)
[2020-04-17] MEDS: pantoprazole 40 mg SDV IVP (17:48)
[2020-04-17] MEDS: heparin 5,000 unit/mL INJ 1 mL 5000 UNIT INJECTION (17:48)
[2020-04-17 18:30] LABS: Glucose Point of Care 102 mg/dL (70-110)
[2020-04-17 21:10] LABS: Glucose Point of Care 107 mg/dL (70-110)
[2020-04-17] MEDS: atorvastatin 40 mg Tablet 20 MG PO (21:41)
[2020-04-18] VITALS: BP 118/71; PULSE 74; RESP 18; TEMP 36.7; O2SAT 98
[2020-04-18] MEDS: pantoprazole 40 mg SDV IVP (01:29)
[2020-04-18] MEDS: sodium chloride 0.9% 1,000 ML 100 ML IV (01:29)
--- NOTE | 2020-04-18 01:36 | PC.NURSE ---
Patient refused heparin shot stating that she did not feel comfortable taking it with possible surgery tomorrow.
[2020-04-18 04:00] VITALS: BP 100/62; PULSE 65; RESP 18; TEMP 36.5; O2SAT 97
[2020-04-18 05:00] LABS: Basophils # 0.1 10^3/uL (0.0-0.1); Basophils % 0.8 %; Eosinophils # 0.2 10^3/uL (0.0-0.8); Eosinophils % 1.8 %; Hematocrit 34.3 % (37.0-47.0); Hemoglobin 10.4 g/dL (11.5-15.3); Lymphocytes # 1.9 10^3/uL (0.8-4.8); Mean Corpuscular HGB Conc 30.3 g/dL (30.0-36.0); Mean Corpuscular Hemoglobin 27.6 pg (28.0-34.0); Monocytes # 0.4 10^3/uL (0.2-0.9); Monocytes % 4.4 %; Neutrophils # 6.94 10^3/uL (1.8-7.7); Neutrophils % 72.5 %; Nucleated Red Blood Cells % 0 %; Platelet Count 252 10^3/cmm (130-400); Red Blood Count 3.77 10^6/uL (4.1-5.3); White Blood Count 9.6 10^3/uL (4.0-10.0)
[2020-04-18 05:06] LABS: Alanine Aminotransferase 17 U/L (0-33); Albumin Level 3.5 g/dL (3.5-5.2); Alkaline Phosphatase 58 IU/L (35-105); Anion Gap 12.7 (5-19); Aspartate Amino Transferase 15 U/L (0-32); Blood Urea Nitrogen 7 mg/dL (6-20); Calcium 8.3 mg/dL (8.5-10.5); Carbon Dioxide 26 mmol/L (22-29); Chloride 104 mmol/L (98-107); Globulin 2.8 g/dL (1.3-4.6); Glomerular Filtration Rate 171.8 mL/min (90-130); Glucose 120 mg/dL (65-115); Lipase 24 U/L (13-60); Osmolality Calculated 287 mOsm/kg (285-295); Potassium 3.7 mmol/L (3.5-5.1); Sodium 139 mmol/L (136-145); Total Bilirubin 0.2 mg/dL (0.15-1.2); Total Protein 6.3 g/dL (6.6-8.7)
--- NOTE | 2020-04-18 06:18 | P.PN_ITS ---
Subjective Subjective: Interval history: Patient overall feels better and blood work normalized particularly the lipase went back to normal likely dehydration and responded well to IV fluid resuscitation. Vitals/I&O/Wt Last Vital Signs Temp 97.7 F 04/18/20 04:00 Pulse 65 04/18/20 04:00 Resp 18 04/18/20 04:00 BP 100/62 04/18/20 04:00 Pulse Ox 97 04/18/20 04:00 04/17/20 04/17/20 04/18/20 14:59 22:59 06:59 Intake Total 1000 / 1000 766.667 / 1766.667 Balance 1000 / 1000 766.667 / 1766.667 Weight last 48 hrs Weight 295 lb Physical Exam Narrative: EXAM NARRATIVE: Patient is conscious alert oriented X3 BMI 56 Head and neck examination PERRLA no masses no cervical lymphadenopathy no jaundice Abdomen nontender nondistended soft no organomegaly guarding or rigidity/no signs of peritonitis Morbidly obese Data : 04/18/20 04:20 04/18/20 04:20 A&P Assessment and plan (1) Abdominal pain: After further discussion with the patient she elected to go with the liquid protein diet for 10 days to downsize the volume of the liver as agreed upon prior. We will start the patient on clear liquid diet and if she tolerates well we will plan to discharge home and will plan for elective surgery in 10 days. Patient already given instructions about the liquid protein diet via my office. We will start the patient on clear liquid diet once that is being tolerated we will plan to discharge home today. Assurance and education All questions have been answered and all concerns have been addressed to patient's satisfaction. Status: Resolved Attestations Medical Necessity Statement*: Observation status unlikely patient will be discharged home today Time Spent in Patient Care: (>than 50% of time spent in counselling and/or direct pt care on unit) . Coding Level of Care Code Acute Body Shop Technician for Amador Emerson Diagnoses Abdominal pain R10.9
[2020-04-18 06:36] LABS: Glucose Point of Care 114 mg/dL (70-110)
[2020-04-18 08:00] VITALS: BP 124/79; PULSE 65; RESP 18; TEMP 36.4; O2SAT 95
[2020-04-18] MEDS: lisinopril 5 mg Tablet PO (08:48)
[2020-04-18 10:15] LABS: Coronavirus Lab Test PTC Negative
--- NOTE | 2020-04-18 10:38 | P.SS_ITS ---
Short Stay Summary Providers Date of Admit/Discharge: 04/19/20 Attending Provider: Natanael Gan MD Primary Care Provider: Vida Mayer DO Chief Complaint: Gallbladder HPI History of Present Illness Ana Osman is a 45 year old female presenting with right thing with worsening right upper quadrant abdominal pain and was found to have cholelithiasis associated with hepatomegaly. And an elevated lipase yet mild elevation. Patient was admitted on my service for observation for IV fluid resuscitation and repeated physical examination. Responded well to conservative measures and tolerated p.o. intake. Patient is planned to have her surgery on elective basis before this admission. I did discuss with the patient about the potential of performing surgery during this hospitalization versus outpatient with maximizing her liver condition in a positive way by downsizing its size and placing her on liquid protein diet for 10 days. Patient agreed on the latter as she did respond well to conservative measures. Review of Systems General: Reports: 10 or more systems reviewed and unremarkable except in HPI and below Home Meds/Allergies Home Medications and Allergies Home Medications Medication Instructions Recorded Confirmed Type ferrous sulfate 325 mg (65 mg 325 mg PO DAILY tab 02/20/20 04/17/20 History iron) tablet atorvastatin 20 mg PO BEDTIME 04/17/20 04/17/20 History ondansetron 4 mg PO Q8H PRN 04/17/20 04/17/20 History Allergies Allergy/AdvReac Type Severity Reaction Status Date / Time cephalexin [From Keflex] Allergy rash Verified 04/17/20 12:52 clindamycin Allergy shortness Verified 04/17/20 12:52 of breath Penicillins Allergy rash Verified 04/17/20 12:52 PFSH Acute PFSH: Medical History Arthritis of both knees Benign essential HTN Colon polyps Fatty liver Gallstone Irritable bowel syndrome with constipation and diarrhea Obesity PCOS (polycystic ovarian syndrome) Type 2 diabetes mellitus, without long-term current use of insulin Surgical History History of appendectomy (~2018) History of tonsillectomy and adenoidectomy Family History Father Cancer colon Other CAD (coronary artery disease) Diabetes Denies family history of Anesthesia complication Bleeding disorder Social History Smoking and tobacco status: former smoker Alcohol intake: current Alcohol intake frequency: holidays/special occasions only Alcohol type: wine Adopted: No Caregiver/support person: Yes Lives independently: Yes Household members: none Housing: Apartment Marital status: Single service: No Current occupational exposures/hazards: No Pets and animals: No History of recent travel: No Sexually active: No Current gender identity: Female Emmy/Congregational: Confucianist Special emmy needs: No Agree to transfusion: No Financial difficulty paying for basics: Decline to Answer Female Reproductive History: Date of last menstrual period: 03/26/20 Vitals/I&O/Wt Last Vital Signs Temp 97.5 F L 04/18/20 08:00 Pulse 65 04/18/20 08:00 Resp 18 04/18/20 08:00 BP 124/79 04/18/20 08:00 Pulse Ox 95 04/18/20 08:00 04/17/20 04/18/20 04/18/20 22:59 06:59 14:59 Intake Total 766.667 / 1766.667 Balance 766.667 / 1766.667 Weight last 48 hrs Weight 295 lb Physical Exam Narrative: EXAM NARRATIVE: Patient is conscious alert oriented X3 BMI 56 Head and neck examination PERRLA no masses no cervical lymphadenopathy no jaundice Abdomen nontender nondistended soft no organomegaly guarding or rigidity/no signs of peritonitis Morbidly obese Hospital Course Discharge Summary Patient overall did well and responded to conservative measures and tolerating p.o. intake, good urine output and continued to have stable vital signs with normalization of lab values. Plan to discharge home today. SSS Data Data Completed and Pending: Completed Studies During Hospitalization Category Date Time Status US gall bladder 7 [id number] Urgent Ultrasound 04/17/20 05:15 Completed Diagnoses at Discharge Discharge Diagnosis (1) Abdominal pain: Status: Resolved Permanent problem details: Plan to discharge patient home today and place her on liquid protein diet for 10 days to downsize the volume of the liver and plan for elective laparoscopic cholecystectomy. Discharge Plan Discharge Patient Disposition: Home Condition: Stable Prescriptions: New Protonix 40 mg tablet,delayed release (DR/EC) 40 mg PO DAILY 30 Days Qty: 30 RF: 2 Continued metformin 500 mg tablet extended release 24hr 500 mg PO DAILY Qty: 30 RF: 1 ferrous sulfate [Feosol] 325 mg (65 mg iron) tablet 325 mg PO DAILY RF: 0 lisinopril 5 mg tablet 5 mg PO DAILY Qty: 30 RF: 0 hydrochlorothiazide 25 mg tablet 25 mg PO DAILY Qty: 30 RF: 0 atorvastatin 20 mg tablet 20 mg PO BEDTIME RF: 0 ondansetron 4 mg tablet,disintegrating 4 mg PO Q8H PRN (Reason: Nausea) RF: 0 hydrocodone-acetaminophen [[place]] 5-325 mg tablet 1 tab PO Q6H PRN (Reason: pain) Qty: 14 RF: 0 Discontinued metronidazole [Flagyl] 500 mg tablet 500 mg PO TID 10 Days Qty: 30 RF: 0 ciprofloxacin HCl [Cipro] 500 mg tablet 500 mg PO BID Qty: 20 RF: 0 Discharge Orders: Discharge Order (Routine); Ordered 04/18/20 Ordered By: Natanael Gan Referrals: Natanael Gan MD [Physician] - 05/15/20 10:30 am () Vida Mayer DO [Primary Care Provider] - 04/22/20 8:30 am () Discharge Diet: As Directed Discharge Activity: Increase activity as tolerated Patient Instructions: Pantoprazole (By mouth), Acute Abdominal Pain (DC) Activity Restrictions/Additional Instructions: Patient will start on liquid protein diet as educated and instructed previously at my office for 10 days prior to her surgery. Do not take any anti-inflammatory drugs. Attestations Medical Necessity Statement*: Observation status for repeated physical examination and monitor patient's clinical response. Time Spent in Patient Care*: greater than 30 min Specific Discharge Activities: Specific discharge activities: educating patient Status at Discharge: Cognitive status at discharge: cognitively intact , Behavioral status at discharge: cooperative , Functional status at discharge: independent ambulation Overall status at discharge: patient is progressing back to baseline Quality Metrics Clinical Quality Measures: During this hospital stay, did patient experience: None Coding Level of Care Code Acute Auto Damage Insurance Appraiser for Chg Fwd Diagnoses Abdominal pain R10.9
--- NOTE | 2020-04-18 11:18 | PM.PN ---
Subjective Subjective: Interval history: Ana reports she is feeling a lot better. She denies any abdominal pain this morning. Surgery has evaluated her and believe she can go home. Medications: Reviewed: Yes Vitals/I&O/Wt Last Vital Signs Temp 97.5 F L 04/18/20 08:00 Pulse 65 04/18/20 08:00 Resp 18 04/18/20 08:00 BP 124/79 04/18/20 08:00 Pulse Ox 95 04/18/20 08:00 04/17/20 04/18/20 04/18/20 22:59 06:59 14:59 Intake Total 766.667 / 1766.667 Balance 766.667 / 1766.667 Weight last 48 hrs Weight 133.81 kg Physical Exam Narrative: EXAM NARRATIVE: General exam no apparent distress, ambulating around the room Cardiovascular regular rate and rhythm, no murmur Lungs clear no wheezing or crackles Abdomen is soft, obese. She is nontender this morning Extremities no cyanosis clubbing or edema, cap refill brisk Data : 04/18/20 04:20 04/18/20 04:20 A&P Assessment and plan (1) Abdominal pain: This may represent biliary colic considering thickened gallbladder wall on ultrasound as well as likely gallbladder neck stone. However gastritis/duodenitis is also in the differential secondary to ibuprofen use over the last 2 weeks. Doubt pancreatitis even though lipase slightly high. This is likely secondary to persistent nausea, episode of vomiting. Urinalysis ordered. Lipase today is normal after hydration Patient wishes to go home. Surgery believes this is possible with scheduling of outpatient cholecystectomy Continue Protonix 40 mg daily Avoid all anti-inflammatories No need for antibiotics from a gallbladder standpoint on discharge. Note the triglycerides were checked in October and not significantly elevated Status: Acute (2) Type 2 diabetes mellitus, without long-term current use of insulin: Sliding scale insulin. Hold Metformin. Status: Chronic Qualifiers: Diabetes mellitus complication status: without complication Qualified Code(s): E11.9 - Type 2 diabetes mellitus without complications (3) Dyslipidemia: Continue home medications Status: Acute (4) Recurrent biliary colic: Surgery primary and addressing Status: Acute (5) Iron deficiency anemia: Hemoglobin 11.2, and overall stable Status: Chronic Qualifiers: Iron deficiency anemia type: other iron deficiency Qualified Code(s): D50.8 - Other iron deficiency anemias Additional A&P Information Hypertension. May resume her home medications on discharge Multiple other medical problems as listed in her past medical history Full code Note that her Covid PCR was negative. Attestations Medical Necessity Statement*: Discharge home today per surgery Coding Level of Care Code Acute Magnetic Prospector for Chg Fwd Diagnoses Abdominal pain R10.9 Type 2 diabetes mellitus, without long-term current use of insulin E11.9 Diabetes mellitus complication status: without complication Dyslipidemia E78.5 Recurrent biliary colic K80.50 Iron deficiency anemia D50.8 Iron deficiency anemia type: other iron deficiency
[2020-04-18 12:00] VITALS: BP 122/77; PULSE 67; RESP 18; TEMP 36.8; O2SAT 94
[2020-04-18 12:32] LABS: Glucose Point of Care 135 mg/dL (70-110)
[2020-04-18 14:24] VITALS: BP 122/77; PULSE 67; RESP 18; TEMP 36.8; O2SAT 94
== END 2020-04-18 13:50 | disposition home or self-care (01) ==
LOC: ER 06:31 → MEDSURG 13:21
PROVIDERS: Emergency Medicine; Internal Medicine; Admitting Provider Surgery; Emergency Provider Family Medicine; PCP Family Medicine; Visit Provider Surgery
DX: K80.20 Calculus of gallbladder without cholecystitis without obstruction (principal); K76.0 Fatty (change of) liver, not elsewhere classified; E66.01 Morbid (severe) obesity due to excess calories; Z68.43 Body mass index [BMI] 50.0-59.9, adult; K58.2 Mixed irritable bowel syndrome; E28.2 Polycystic ovarian syndrome; E86.0 Dehydration; E11.9 Type 2 diabetes mellitus without complications; E78.5 Hyperlipidemia, unspecified; D50.9 Iron deficiency anemia, unspecified; R16.0 Hepatomegaly, not elsewhere classified; I10 Essential (primary) hypertension; M17.0 Bilateral primary osteoarthritis of knee; Z79.891 Long term (current) use of opiate analgesic; Z79.4 Long term (current) use of insulin; Z87.891 Personal history of nicotine dependence
CPT/HCPCS: 12345; 36415; 36416; 76705; 80053; 81003; 82962; 83605; 83690; 84703; 85025; 87635; 96360; 96361; 96375; 99283; C9113; G0378; J1170; J1644; J2060; J2405; J2765; J7030

== ENCOUNTER → 2020-04-22 08:52 | Outpatient (BNVA) | payer OTHER, SELFPAY | PROVIDERS: PCP Family Medicine; Visit Provider Family Medicine | DX: E78.5 Hyperlipidemia, unspecified (principal); E11.9 Type 2 diabetes mellitus without complications; Z23 Encounter for immunization; Z68.43 Body mass index [BMI] 50.0-59.9, adult; F17.211 Nicotine dependence, cigarettes, in remission; Z71.89 Other specified counseling | CPT/HCPCS: 80061; 83036 ==

== ENCOUNTER → 2020-04-24 15:43 | Outpatient (BNVA) | payer OTHER, SELFPAY | PROVIDERS: PCP Family Medicine; Visit Provider Surgery | DX: Z20.828 Contact with and (suspected) exposure to other viral communicable diseases (principal); K76.0 Fatty (change of) liver, not elsewhere classified; K80.50 Calculus of bile duct without cholangitis or cholecystitis without obstruction | CPT/HCPCS: 87635 ==

== ENCOUNTER 2020-04-29 12:32 | Day surgery (SDC) | payer OTHER, SELFPAY ==
[2020-04-24 15:47] VITALS: BMI 53.6
[2020-04-29] VITALS (13 sets, daily range): BP systolic 112–146; BP diastolic 43–97; PULSE 72–88; RESP 13–21; TEMP 36.4–37.1; O2SAT 92–99
[2020-04-29 13:03] LABS: OR HCG Qualitative Urine Negative (Negative)
[2020-04-29] MEDS: sodium chloride 0.9% 1,000 ML 30 ML IV (13:14)
[2020-04-29] MEDS: heparin 5,000 unit/mL INJ 1 mL 5000 UNIT SUBCUT (13:15)
--- NOTE | 2020-04-29 13:17 | W.PM.OPSUD ---
Surgery/Procedure H&P Update DATE OF PROCEDURE: April 29, 2020 DATE H&P PERFORMED: 04/14/20 H&P UPDATE INFORMATION: I have reviewed H&P completed within last 30 days, I have examined patient prior to procedure and Changes to prior documentation as noted here (She reports to me that she lost 22 pounds since her last hospitalization) PREOP DIAGNOSIS: Symptomatic cholelithiasis PRIMARY INDICATION FOR PROCEDURE: The same PLANNED PROCEDURE: Operation Date: 04/29/20 13:55 Proposed Procedures p Laparoscopic Cholecystectomy 7562 21040 K80.50 K76.0(Not Applicable) - Natanael Gan MD s Liver Biopsy(Not Applicable) - Natanael Gan MD
[2020-04-29 13:26] LABS: Glucose Point of Care 96 mg/dL (70-110)
--- NOTE | 2020-04-29 13:26 | P.ANESASSM_ITS ---
Pre-Anesthetic Assessment Pre-Anesthetic Assessment: Height/Weight: Height 1.55 m Weight 128.82 kg Temp Pulse Resp BP Pulse Ox 97.6 F 79 18 131/97 97 04/29/20 12:45 04/29/20 12:45 04/29/20 12:45 04/29/20 12:45 04/29/20 12:45 Preop Diagnosis: Symptomatic cholelithiasis Proposed Procedure: Operation Date: 04/29/20 13:55 Proposed Procedures p Laparoscopic Cholecystectomy 7562 00200 K80.50 K76.0(Not Applicable) - Natanael Gan MD s Liver Biopsy(Not Applicable) - Natanael Gan MD Familial anesthetic complications: Trouble breathing after her appendectomy in surgery - they told her she probably has SAM Was Beta [place] taken within 24 hours: N/A Last intake: Intake black coffee at 0800 Last Liquid Date 04/28/20 Last Liquid Time 21:00 Last Solid Date 04/28/20 Last Solid Time 21:00 Social: Social History: No alcohol and No tobacco Exam: Pre-Anes Outpt Exam: alert, oriented x 3, clear to auscultation bilaterally and regular rate & rhythm Airway: Cervical ROM: WNL MP: 2 Dentition: Other (crowns upper, no teeth in the back) CV/HEM: CV/HEM: Anemia and HTN Hepatic: Comments: fatty liver GI: GI: GERD Metabolic: Metabolic: DM, Hyperlipidemia and Morbid obesity Musc/skel: Comments: PCOS Anesthetic Plan: ASA status: 3 Anesthesia: General Risk of > 500 ml blood loss (7ml/kg in children): No Meds/Allergies Current Medications: Current Medications Generic Name Dose Route Start Last Admin Trade Name Freq PRN Reason Stop Dose Admin Sodium Chloride 1,000 mls @ 30 ml s/hr 04/29/20 12:45 04/29/20 13:14 Sodium Chloride 0.9% IV 04/30/20 12:44 30 mls/hr .Q24H CHENG Administration PFSH Anesthesia 2 PFSH: Medical History Arthritis of both knees Benign essential HTN Colon polyps Fatty liver Gallstone Irritable bowel syndrome with constipation and diarrhea Obesity PCOS (polycystic ovarian syndrome) Type 2 diabetes mellitus, without long-term current use of insulin Surgical History History of appendectomy (~2018) History of tonsillectomy and adenoidectomy Family History Father Cancer colon Other CAD (coronary artery disease) Diabetes Denies family history of Anesthesia complication Bleeding disorder Social History Smoking and tobacco status: former smoker Alcohol intake: current Alcohol intake frequency: holidays/special occasions only Alcohol type: wine Adopted: No Caregiver/support person: Yes Lives independently: Yes Household members: none Housing: Apartment Marital status: Single service: No Current occupational exposures/hazards: No Pets and animals: No History of recent travel: No Sexually active: No Current gender identity: Female Emmy/Jainism: Anglican Special emmy needs: No Agree to transfusion: No Financial difficulty paying for basics: Decline to Answer Female Reproductive History: Date of last menstrual period: 04/23/20 Data Anesthesia Other Labs: Laboratory Results - last 48 hr 04/29/20 04/29/20 13:01 13:13 POC Glucose 96 Urine HCG, Qual Negative Cardiac Studies: No Data to Display
[2020-04-29] MEDS: levofloxacin-dextrose 5 % 500 MG/100 ML PREMIX 100 MG IV (14:41)
[2020-04-29] MEDS: lidocaine 2% INJ 20 mL INJECTION (15:26)
--- NOTE | 2020-04-29 16:16 | PM.OP ---
Operative Report Date of procedure: April 29, 2020 Pre-op Diagnosis: Symptomatic cholelithiasis Post-op diagnosis: other (Acute on top of chronic cholecystitis) Procedure Done: Laparoscopic Cholecystectomy and laparoscopic liver biopsy Specimens removed/disposition: Gall Bladder and contents Liver Biopsy Surgeon: [facility] Specialist: [facility] Sasha Trammell Anesthesia: General (JOSH Lyon/Dr Logan) Estimated blood loss (mL): 25 IV fluids (mL): 1,200 Complications: Difficult Intubation Condition: stable Disposition: same day Brief History: This is a pleasant 45 years old female patient has been complaining of her gallbladder for quite some time and she has been struggling with her weight.Patient was placed on liquid protein diet to downsize the volume of the liver prior to surgery. Plan of care; After thorough history physical examination and reviewing the chart ,I counseled the patient for laparoscopic cholecystectomy possible open, indications risks including but not limited injury to the common bile duct and other viscera.benefits and alternatives all discussed with the patient, and she did agree to proceed. All questions have been answered and all concerns have been addressed to patient's satisfaction. Rationale was carefully and clearly discussed with the patient.Appropriate informed consent have been reviewed and signed. Procedure: Patient was identified in the holding area and taken back to the operative suite, placed in supine position intubated by anesthesia, patient had difficult airway but successful intubation was achieved please find a separate note on anesthesia records. Time-out was done verifying the patient's name/date of /planned procedure and destination after the procedure, all were in agreement. SCDs confirmed to be functioning, preoperative antibiotics administered per protocol, and beta maximus protocol was confirmed. Patient was appropriately secured to the table, footboard was applied to the OR table, before prep and drape anesthesia was asked to tilt the table back and forth to make sure that the patient is appropriately secured and she was. Prep and drape of the abdomen was done under the usual sterile technique, followed by that supraumbilical skin incision,skin incision was done by a 15 blade knife, and stay sutures were applied to the fascia and Pyle trocar technique was used to enter the abdominal without injuring any abdominal viscera, started by low flow gas insufflation followed by a high flow, started with a 10 mm laparoscope and under direct vision there was no evidence of any injuries, the scope then switched to a 30? ,10 millimeter scope and under direct visualization a long 5 millimeter trocar was inserted in the epigastric region followed by two long 5 mm trocars were inserted in the right upper quadrant that was done after injection of local lidocaine 2% at all incision sites. Gallbladder showed chronic calculus cholecystitis with extensive edema &with adhesions Fatty liver in moderation Patient was then positioned in the head up and tilted to the left Ratcheted forceps were introduced into the lateral most 5mm port and was applied unto the fundus of the gallbladder cephalad and using Bullet forceps the infundibulum of the gallbladder was retracted laterally. For better countertraction I did use 5 mm tenaculum. Using [place] forceps then L-hook cautery to dissect the peritoneum overlying the Calot's triangle whihc was then opened medially and laterally until the cystic duct and the cystic artery were skeletonized. Dissection was carried along the body of the gallbladder and after ensuring critical view of safety was identfied. Cystic duct and cystic artery where seen connected to the gallbladder.Three Clips were applied on the cystic duct towards the common bile duct 1 towards the gallbladder then divided is in sharp scissors, 2 clips were then applied onto the cystic artery and 1 towards the gallbladder and divided by sharp scissors. Additional clips were added to the traversing vessel. Dissection was then carried along of the gallbladder from the gallbladder fossa using cautery as well as sharp dissection with heat energy. The gallbladder then was dissected out from the gallbladder fossa totally , cholecystectomy was then achieved and was placed in an Endo Catch bag and then retrieved from the Pyle trocar site under direct visualization using a 5 mm 30? scope through the epigastric trocar, specimen was then passed to the circulating nurse to go for permanent pathology,irrigation and hemostasis was done to the gallbladder fossa after hemostasis was secured, final survey laparoscopy was done that showed no injuries.Suction irrigation was obtained. Laparoscopic liver biopsy was obtained from the edge of the liver at the gallbladder fossa and sent separate for permanent pathology and appropriate hemostasis was achieved. The supraumbilical fascial defect was then closed using [id number] #1 PDS sutures using a fascial closure device ;Shmuel Cason under direct visualization Gas was allowed to deflate,Trocars were then taken out under direct vision there was no evidence of bleeding Specimen was passed to the circulating nurse for permanent pathology. No drains were placed and the supraumbilical incision as well as all trocar sites were closed by by 4-0 Monocryl to approximate the skin edges of the supraumbilical incision, dressing was applied in the form of Dermabond and the patient patient got extubated and was taken to recovery area in a stable condition. Count of sponges, needles and instruments were completed at the end of the procedure I was present for the whole entire procedure including the intubation part assisting the anesthesia provider.
[2020-04-29] MEDS: ondansetron 2 mg/ML SDV 2 mL 4 MG IVP (16:35)
--- NOTE | 2020-04-29 16:52 | ANE.PACU2 ---
Inpatient post-anesthesia follow up: Airway intact: Yes Vital signs: Temperature 98.3 F Pulse Rate 79 Respiratory Rate 18 Blood Pressure 130/70 Pulse Oximetry 94 Oxygen Delivery Me thod Nasal Cannula Oxygen Flow Rate 2 Fraction of Inspir ed Oxygen Hydration adequate: Yes Nausea and vomiting: Yes Pain level: 3 Pain level: 2/10 Mental status: Baseline Additional Comments: Pt was difficult airway, grade II B view with multiple attempts. Woke up complaining of sore throat, discussed with patient airway difficulty and that she will have a sore throat for several days, advised to use ice chips and throat lozenges to help with pain. Noted given to patient by Dr. Orta to keep record of airway status
[2020-04-29] MEDS: promethazine 25 mg/mL SDV 1 mL IM (17:00)
--- NOTE | 2020-04-29 17:28 | SUR.PHASEI ---
1629 PT TO PACU AWAKE ALERT SPITTING BLOOD TINGED SECRETIONS, YANKER USED PT ABLE TO USE CRISS HERSELF. GOOD RESP EFFORT NOTED ON 8L MASK, ABD LARGE SOFT WITH 4 SITES WITH EXOFIN NO BLEEDING NOTED, 1635 PT HAD EMESIS OF 30 CC DK BROWN CLEAR BILE TYPE , SEE MED GIVEN COOL CLOTH TO FOREHEAD HOB AT 30 DEGREES 1700 PT CONTINUES TO BE NAUSEATED SEE JOSH EAST ORDERS AT BEDSIDE FOR PHENERGAN IM 25 MG GIVEN TO RT THIGH PT INCONTINENT OF URINE MACI CARE AND LINEN CHANGE DONE 1715 PT TO OPS AWKE ALERT NAUSEATED WITH MOVING , VSS. HANDOFF AT BEDSIDE TO Amilcar PELAEZ RN.
[2020-04-29] MEDS: cetylpyridinium Lozenge 1 EACH MUCOUS MEM (17:41)
[2020-04-29] MEDS: HYDROcodone-acetaminophen 5-325 mg Tablet 1 TAB PO (18:18)
== END 2020-04-29 18:42 | disposition home or self-care (01) ==
PROVIDERS: PCP Family Medicine; Visit Provider Surgery
PROC: 0FT44ZZ Resection of Gallbladder, Percutaneous Endoscopic Approach (ICD-10-PCS; CPT 47562; principal; 2020-04-29 13:55)
PROC: (CPT 47379; 2020-04-29 13:55)
DX: K80.10 Calculus of gallbladder with chronic cholecystitis without obstruction (principal); I10 Essential (primary) hypertension; K21.9 Gastro-esophageal reflux disease without esophagitis; E11.9 Type 2 diabetes mellitus without complications; E78.5 Hyperlipidemia, unspecified; E66.01 Morbid (severe) obesity due to excess calories; Z68.43 Body mass index [BMI] 50.0-59.9, adult; E28.2 Polycystic ovarian syndrome; M17.0 Bilateral primary osteoarthritis of knee; Z87.891 Personal history of nicotine dependence; Z79.84 Long term (current) use of oral hypoglycemic drugs
CPT/HCPCS: 47379; 47562; 12345; 36416; 81025; 82962; 84703; 88304; 88307; 96365; 96372; J0131; J0330; J1100; J1644; J1956; J2405; J2550; J2704; J2710; J3010; J3490; J7030

== ENCOUNTER → 2020-09-01 14:00 | Outpatient (BNVA) | payer OTHER, SELFPAY | PROVIDERS: PCP Family Medicine; Visit Provider Family Medicine | DX: I10 Essential (primary) hypertension (principal); E78.5 Hyperlipidemia, unspecified | CPT/HCPCS: 85025 ==

== ENCOUNTER → 2020-10-23 14:51 | Outpatient (BNVA) | payer OTHER, SELFPAY | PROVIDERS: PCP Family Medicine; Visit Provider Family Medicine | DX: E11.9 Type 2 diabetes mellitus without complications (principal) | CPT/HCPCS: 80053; 83036 ==

== ENCOUNTER → 2021-03-12 11:20 | Outpatient (BNVA) | payer OTHER, SELFPAY | PROVIDERS: PCP Family Medicine; Visit Provider Family Medicine | DX: E11.9 Type 2 diabetes mellitus without complications (principal); D50.8 Other iron deficiency anemias; D50.9 Iron deficiency anemia, unspecified; I10 Essential (primary) hypertension; E78.5 Hyperlipidemia, unspecified | CPT/HCPCS: 80053; 80061; 82043; 82728; 83036; 83550; 85025 ==

== ENCOUNTER → 2021-06-04 13:55 | Outpatient (BNVA) | payer OTHER, SELFPAY | PROVIDERS: PCP Family Medicine; Visit Provider Family Medicine | DX: R39.15 Urgency of urination (principal); I10 Essential (primary) hypertension; E11.9 Type 2 diabetes mellitus without complications | CPT/HCPCS: 81000 ==

== ENCOUNTER → 2021-08-13 09:41 | Outpatient (BNVA) | payer OTHER, SELFPAY | PROVIDERS: PCP Family Medicine; Visit Provider Family Medicine | DX: E11.9 Type 2 diabetes mellitus without complications (principal); R39.15 Urgency of urination; I10 Essential (primary) hypertension; D50.8 Other iron deficiency anemias; F17.211 Nicotine dependence, cigarettes, in remission; Z68.43 Body mass index [BMI] 50.0-59.9, adult | CPT/HCPCS: 80053; 83036 ==

== ENCOUNTER → 2021-11-12 10:30 | Outpatient (BNVA) | payer OTHER, SELFPAY | PROVIDERS: PCP Family Medicine; Visit Provider Family Medicine | DX: R39.15 Urgency of urination (principal); I10 Essential (primary) hypertension; E11.9 Type 2 diabetes mellitus without complications; D50.9 Iron deficiency anemia, unspecified; D50.8 Other iron deficiency anemias | CPT/HCPCS: 80053; 82728; 83036; 83550; 85025 ==

== ENCOUNTER 2021-11-25 08:10 | Emergency (ER) | payer SELFPAY ==
[2021-11-25 08:18] VITALS: BP 156/85; PULSE 96; RESP 22; TEMP 36.7; O2SAT 97; BMI 60.4
--- NOTE | 2021-11-25 08:25 | XR_ITS ---
WS: [id number] Exam: XR chest 1V portable [id number] Date/Time of Exam: 11/25/2021 8:28 AM Reason For Exam: dyspnea/cough No priors. The lungs are fully expanded and clear. There is haziness seen over the bilateral basal areas most li nadine secondary to heavy overlying soft tissue. Normal cardiomediastinal silhouette for technique. No pleural effusion. Regional bony elements are intact. XR/XR chest 1V portable [id number] IMPRESSION: 1. No acute cardiopulmonary finding.
--- NOTE | 2021-11-25 08:44 | ECG_ITS ---
[facility] Test Date: 2021-11-25 Pat Name: Ana Osman Department: Room: Gender: Female Underwriting Support Specialist: : 1975 Requested By: Wojciech Mata Order Number: [id number] Timothy MD: Katerina Francisco M.D. Measurements Intervals [place] Rate: 92 P: 18 MD: 132 QRS: 41 QRSD: 102 T: 27 QT: 368 QTc: 455 Interpretive Statements SINUS RHYTHM NONSPECIFIC T-WAVE ABNORMALITY Compared to ECG 04/07/2020 00:38:15 T-wave abnormality now present Electronically Signed On 11-25-2021 22:27:25 CDT by Katerina Francisco M.D. [id number]
[2021-11-25 08:54] VITALS: BP 156/85; PULSE 86; RESP 18; O2SAT 95
--- NOTE | 2021-11-25 08:59 | PC.NURSE ---
EKG done at 0855 and shown to ER doctor.
--- NOTE | 2021-11-25 09:03 | W.ED.SOB ---
HPI - SOB/Dyspnea General: Chief Complaint: Shortness of Breath/Dyspnea Stated Complaint: sob Time Seen by Provider: 11/25/21 08:13 Source: patient Mode of arrival: ambulatory Limitations: no limitations History of Present Illness: HPI Narrative: 46-year-old female presents emergency room complaining of shortness of breath. She has had this for several weeks and with outpatient work-up got worse again last night woke up she felt very short of breath she was able to sit up and catch her breath she still feeling uneasy this morning. She notes with minimal activity she gets short of breath as well. She denies any sharp chest pain. No fever sweats or chills or productive cough MD elicited complaint: shortness of breath Onset (ago): week(s) Timing: intermittent Severity: moderate Exacerbating factors: lying flat, exertion, coughing and inspiration Relieving factors: rest Associated symptoms: Reports chest pain and cough; Deny abdominal pain, chest congestion, diaphoresis, dizziness, extremity pain, fever(s), hemoptysis, lightheadedness, myalgias, nausea, orthopnea, palpitations, paresthesias, polydipsia, polyuria, sense of impending doom, syncope or vomiting Review of Systems Const: Reports: fatigue and malaise; Denies: fever(s), chills or diaphoresis ENMT: Denies: throat pain, ear or mastoid pain, nasal discharge or nasal congestion Card: Reports: chest pain; Denies: palpitations, lightheadedness, syncope or orthopnea Resp: Reports: dyspnea; Denies: productive cough, non-productive cough, wheezing, hemoptysis or chest congestion GI: Denies: abdominal pain, nausea or vomiting : Denies: flank pain, difficulty voiding, dysuria, urinary frequency or urinary urgency Musc: Denies: extremity pain Skin/Breast: Denies: rash or pruritus Neuro: Denies: dizziness Endo: Denies: polyuria or polydipsia PFSH ED PFSH: Medical History Arthritis of both knees Benign essential HTN Colon polyps Fatty liver Gallstone Irritable bowel syndrome with constipation and diarrhea Obesity PCOS (polycystic ovarian syndrome) Type 2 diabetes mellitus, without long-term current use of insulin Surgical History History of appendectomy (~2018) History of laparoscopic cholecystectomy (~04/2020) History of tonsillectomy and adenoidectomy Family History Father Cancer colon Other CAD (coronary artery disease) Diabetes Denies family history of Anesthesia complication Bleeding disorder Social History Smoking and tobacco status: former smoker Alcohol intake: current Alcohol intake frequency: holidays/special occasions only Alcohol type: wine Adopted: No Caregiver/support person: Yes Lives independently: Yes Household members: none Housing: Apartment Marital status: Single service: No Current occupational exposures/hazards: No Pets and animals: No History of recent travel: No Sexually active: No Current gender identity: Female Emmy/Amish: Yazidi Special emmy needs: No Agree to transfusion: No Financial difficulty paying for basics: Decline to Answer Female Reproductive History: Date of last menstrual period: 04/23/20 Physical Exam Const: GENERAL APPEARANCE: cooperative and comfortable NUTRITIONAL APPEARANCE: obese morbidly obese ORIENTATION/CONSCIOUSNESS: Yes awake, Yes oriented to person, Yes oriented to place and Yes oriented to time HENMT: COMMON NORMALS: normocephalic, atraumatic and hearing grossly normal bilaterally HEAD & SCALP: normocephalic and atraumatic Neck/C-Spine: COMMON NORMALS: supple Resp: COMMON NORMALS: normal respiratory effort, No retractions, No use of accessory muscles and clear to auscultation bilaterally AUSCULTATION: clear to auscultation bilaterally Cardio: COMMON NORMALS: regular rate, regular rhythm and No murmurs present (Cardio) RATE: regular rate RHYTHM: regular rhythm GI: COMMON NORMALS: Soft to palpation and No hepatosplenomegaly present AUSCULTATION: Yes normoactive bowel sounds PALPATION: Yes Soft to palpation, No Tenderness to palpation present (GI), No Guarding due to palpation present (GI) and Yes No hepatosplenomegaly present Extremity: COMMON NORMALS: normal to inspection, capillary refill normal, no clubbing, cyanosis or edema, no calf tenderness and no pedal edema Neuro: SENSORIUM/ORIENTATION: Yes oriented to person, Yes oriented to place and Yes oriented to time Skin: COMMON NORMALS: no rashes or lesions noted GENERAL SKIN EXAM: no rashes or lesions noted Course Vital Signs: Vital signs: Vital Signs Temperature 98.0 F 11/25/21 08:18 Pulse Rate 86 11/25/21 12:53 Respiratory Rate 18 11/25/21 12:53 Blood Pressure 156/85 11/25/21 12:53 Pulse Oximetry 95 11/25/21 12:53 MDM - SOB/Dyspnea Medical Decision Making Opponent is negative. Patient is morbidly obese and again plays a big role in L suspect she has some significant sleep apnea. Recommend that she follow-up with her primary care doctor for further evaluation including potential pulmonary function test and sleep studies. Her blood pressure is elevated we will have her start aspirin daily and also isosorbide mononitrate she probably also benefit from a cardiac stress test at some point she tells me her primary care doctor is already getting that arranged. Medical Records I reviewed the patient's medical records. Lab Data I reviewed the patient's lab results. : 11/25/21 09:08 11/25/21 09:38 Labs/Radiology: Radiology Impressions Chest X-Ray 11/25/21 08:25 IMPRESSION: 1. No acute cardiopulmonary finding. Laboratory Results WBC 14.5 10^3/uL (4.0-10.0) H 11/25/21 09:08 RBC 4.24 10^6/uL (4.1-5.3) 11/25/21 09:08 Hgb 11.5 g/dL (11.5-15.3) 11/25/21 09:08 Hct 35.1 % (37.0-47.0) L 11/25/21 09:08 MCV 82.8 fl (81-99) 11/25/21 09:08 MCH 27.1 pg (28.0-34.0) L 11/25/21 09:08 MCHC 32.8 g/dL (30.0-36.0) 11/25/21 09:08 RDW 15.9 % (12.1-15.1) H 11/25/21 09:08 Plt Count 297 10^3/cmm (130-400) 11/25/21 09:08 MPV 11.0 fL (7.4-10.4) H 11/25/21 09:08 Neut % (Auto) 81.4 % 11/25/21 09:08 Lymph % (Auto) 11.4 % 11/25/21 09:08 [place] % (Auto) 4.8 % 11/25/21 09:08 Eos % (Auto) 0.8 % 11/25/21 09:08 Baso % (Auto) 0.8 % 11/25/21 09:08 Neut # (Auto) 11.81 10^3/uL (1.8-7.7) H 11/25/21 09:08 Lymph # (Auto) 1.7 10^3/uL (0.8-4.8) 11/25/21 09:08 [place] # (Auto) 0.7 10^3/uL (0.2-0.9) 11/25/21 09:08 Eos # (Auto) 0.1 10^3/uL (0.0-0.8) 11/25/21 09:08 Baso # (Auto) 0.1 10^3/uL (0.0-0.1) 11/25/21 09:08 Nucleated RBC % (auto) 0 % 11/25/21 09:08 Nucleated RBCs # 0.0 /100WBC 11/25/21 09:08 Sodium 130 mmol/L (136-145) L 11/25/21 09:38 Potassium 3.8 mmol/L (3.5-5.1) 11/25/21 09:38 Chloride 94 mmol/L (98-107) L 11/25/21 09:38 Carbon Dioxide 24 mmol/L (22-29) 11/25/21 09:38 Anion Gap 15.8 (5-19) 11/25/21 09:38 BUN 15 mg/dL (6-20) 11/25/21 09:38 Creatinine 0.6 mg/dL (0.5-0.9) 11/25/21 09:38 GFR Calculation 107.2 mL/min (90-130) 11/25/21 09:38 Glucose 147 mg/dL (65-115) H 11/25/21 09:38 Calculated Osmolality 274 mOsm/kg (285-295) L 11/25/21 09:38 Calcium 9.3 mg/dL (8.5-10.5) 11/25/21 09:38 Total Bilirubin 0.3 mg/dL (0.15-1.2) 11/25/21 09:38 AST 17 U/L (0-32) 11/25/21 09:38 ALT 22 U/L (0-33) 11/25/21 09:38 Alkaline Phosphatase 90 IU/L (35-105) 11/25/21 09:38 Troponin T Baseline 6 ng/L (0-10) 11/25/21 09:08 Troponin T 120 Minute 6.00 ng/L (0-10) 11/25/21 11:10 Delta Troponin T 0 ABS# (0-10) 11/25/21 11:10 Total Protein 8.0 g/dL (6.6-8.7) 11/25/21 09:38 Albumin 4.3 g/dL (3.5-5.2) 11/25/21 09:38 Globulin 3.7 g/dL (1.3-4.6) 11/25/21 09:38 Discharge Plan Discharge Patient Disposition: Home Clinical Impression: Chronic dyspnea, Apnea, sleep, Anemia, Atypical chest pain Condition: Stable Prescriptions: New isosorbide mononitrate 30 mg tablet extended release 24 hr 30 mg PO DAILY Qty: 30 0RF aspirin 81 mg tablet,delayed release (DR/EC) 81 mg PO DAILY Qty: 30 0RF No Action ClearLax 17 gram Powder In Packet 17 g PO DAILY PRN (Reason: Constipation) 0RF ondansetron HCl 4 mg tablet 4 mg PO Q6H PRN (Reason: Nausea And Vomiting) 0RF Tylenol Arthritis 650 mg Tablet Extended Release 1,300 mg PO Q6H PRN (Reason: Pain) 0RF iron 325 mg (65 mg iron) Tablet 325 mg PO BID 0RF atorvastatin 20 mg tablet 20 mg PO DAILY@15 0RF lisinopril 10 mg tablet 10 mg PO DAILY@15 0RF hydrochlorothiazide 25 mg tablet 25 mg PO DAILY@15 0RF Januvia 100 mg tablet 100 mg PO DAILY@15 0RF Rx Instructions: 340 B Discharge Orders: Discharge ED (Routine); Ordered 11/25/21 Ordered By: Wojciech Cabrera Referrals: Vida Mayer DO [Primary Care Provider] - Discharge Diet: Usual diet Discharge Activity: Limit activity as instructed Patient Instructions: Opioid Safety Coding Level of Care Code ED Associate Professor Of Church Music for Chg Fwd Exam Comprehensive
[2021-11-25 09:17] LABS: Basophils # 0.1 10^3/uL (0.0-0.1); Basophils % 0.8 %; Eosinophils # 0.1 10^3/uL (0.0-0.8); Eosinophils % 0.8 %; Hematocrit 35.1 % (37.0-47.0); Hemoglobin 11.5 g/dL (11.5-15.3); Lymphocytes # 1.7 10^3/uL (0.8-4.8); Lymphocytes % 11.4 %; Mean Corpuscular HGB Conc 32.8 g/dL (30.0-36.0); Mean Corpuscular Hemoglobin 27.1 pg (28.0-34.0); Mean Corpuscular Volume 82.8 fl (81-99); Monocytes # 0.7 10^3/uL (0.2-0.9); Monocytes % 4.8 %; Neutrophils # 11.81 10^3/uL (1.8-7.7); Neutrophils % 81.4 %; Nucleated Red Blood Cells % 0 %; Platelet Count 297 10^3/cmm (130-400); Red Blood Count 4.24 10^6/uL (4.1-5.3); Red Cell Distribution Width 15.9 % (12.1-15.1); White Blood Count 14.5 10^3/uL (4.0-10.0)
[2021-11-25 09:36] LABS: Troponin(5th) Baseline 6 ng/L (0-10)
[2021-11-25 10:06] LABS: Alanine Aminotransferase 22 U/L (0-33); Albumin Level 4.3 g/dL (3.5-5.2); Alkaline Phosphatase 90 IU/L (35-105); Anion Gap 15.8 (5-19); Aspartate Amino Transferase 17 U/L (0-32); Blood Urea Nitrogen 15 mg/dL (6-20); Calcium 9.3 mg/dL (8.5-10.5); Carbon Dioxide 24 mmol/L (22-29); Chloride 94 mmol/L (98-107); Globulin 3.7 g/dL (1.3-4.6); Glomerular Filtration Rate 107.2 mL/min (90-130); Glucose 147 mg/dL (65-115); Osmolality Calculated 274 mOsm/kg (285-295); Potassium 3.8 mmol/L (3.5-5.1); Sodium 130 mmol/L (136-145); Total Bilirubin 0.3 mg/dL (0.15-1.2)
--- NOTE | 2021-11-25 10:37 | PC.NURSE ---
EKG done at 1035 and shown to ER doctor.
--- NOTE | 2021-11-25 10:44 | ECG_ITS ---
[facility] Test Date: 2021-11-25 Pat Name: Ana Osman Department: Room: Gender: Female Improvement Nurse: : 1975 Requested By: Wojciech Mata Order Number: [id number] Timothy MD: Katerina Francisco M.D. Measurements Intervals [place] Rate: 79 P: 12 SD: 132 QRS: 45 QRSD: 89 T: 28 QT: 377 QTc: 433 Interpretive Statements SINUS RHYTHM Compared to ECG 11/25/2021 08:55:37 T-wave abnormality no longer present Electronically Signed On 11-25-2021 22:29:40 CDT by Katerina Francisco M.D. [id number]
[2021-11-25 12:41] LABS: Troponin 5 2HR Delta 0 ABS# (0-10)
[2021-11-25 12:53] VITALS: BP 156/85; PULSE 86; RESP 18; O2SAT 95
== END 2021-11-25 12:57 | disposition home or self-care (01) ==
PROVIDERS: Emergency Provider Family Medicine; PCP Family Medicine
DX: R06.09 Other forms of dyspnea (principal); G47.30 Sleep apnea, unspecified; D64.9 Anemia, unspecified; R07.89 Other chest pain; I10 Essential (primary) hypertension; E11.9 Type 2 diabetes mellitus without complications; Z87.891 Personal history of nicotine dependence
CPT/HCPCS: 71045; 80053; 84484; 85025; 93005; 99283

== ENCOUNTER → 2022-05-13 09:19 | Outpatient (BNVA) | payer SELFPAY | PROVIDERS: PCP Family Medicine; Visit Provider Family Medicine | DX: E11.9 Type 2 diabetes mellitus without complications (principal) | CPT/HCPCS: 80053; 80061; 82043; 83036; 85025 ==

== ENCOUNTER 2022-10-08 09:32 | Outpatient (CLI) | payer SELFPAY ==
--- NOTE | 2022-10-08 09:40 | MM_ITS ---
WS: [id number] Bilateral screening 3D tomosynthesis digital mammogram, 10/08/2022 Clinical Data: SCREENING Comparison: 12/11/2018 Findings: The breast parenchymal pattern shows fat replacement. No spiculated masses or clustered calcification s are seen. There are no secondary signs of carcinoma. There are benign calcifications in the right b reast. There are lymph nodes in both axilla. MM/[place] [id number] Impression: 1. Negative bilateral mammogram unchanged. 2. Recommend annual screening mammograms. BIRADS: 1-Negative FOLLOW UP: 1 Year Follow-up The CAD field checker was used.
== END 2022-10-08 09:33 | disposition home or self-care (01) ==
LOC: RAD 09:35
PROVIDERS: PCP Family Medicine; Visit Provider Advanced Practice Midwife
DX: Z12.31 Encounter for screening mammogram for malignant neoplasm of breast (principal)
CPT/HCPCS: 77063; 77067

== ENCOUNTER → 2022-12-16 13:24 | Outpatient (BNVA) | payer SELFPAY | PROVIDERS: PCP Family Medicine; Visit Provider Family Medicine | DX: E11.9 Type 2 diabetes mellitus without complications (principal) | CPT/HCPCS: 80053; 83036 ==

== ENCOUNTER → 2023-02-09 10:25 | Outpatient (BNVA) | payer OTHER, SELFPAY | PROVIDERS: PCP Family Medicine; Visit Provider Nurse Practitioner Family | DX: R51.9 Headache, unspecified (principal) | CPT/HCPCS: 87426 ==

== ENCOUNTER → 2023-03-24 08:56 | Outpatient (BNVA) | payer OTHER, SELFPAY | PROVIDERS: PCP Family Medicine; Visit Provider Family Medicine | DX: E11.9 Type 2 diabetes mellitus without complications (principal); I10 Essential (primary) hypertension | CPT/HCPCS: 80053; 83036 ==

== ENCOUNTER → 2023-04-21 11:23 | Outpatient (BNVA) | payer OTHER, SELFPAY | PROVIDERS: PCP Family Medicine; Visit Provider Obstetrics & Gynecology | DX: N93.8 Other specified abnormal uterine and vaginal bleeding (principal); N83.202 Unspecified ovarian cyst, left side | CPT/HCPCS: 76830 ==

== ENCOUNTER → 2023-07-11 08:03 | Outpatient (BNVA) | payer OTHER, SELFPAY | PROVIDERS: PCP Family Medicine; Visit Provider Family Medicine | DX: E11.9 Type 2 diabetes mellitus without complications (principal); E78.5 Hyperlipidemia, unspecified | CPT/HCPCS: 80053; 80061; 82043; 83036 ==

== ENCOUNTER 2023-08-04 05:44 | Day surgery (SDC) | payer OTHER, SELFPAY ==
--- NOTE | 2023-08-04 00:09 | W.PM.OPSFHP ---
Same Day Surgery H&P Indication for Procedure/HPI DATE OF PROCEDURE: August 04, 2023 CHIEF COMPLAINT/INDICATIONFOR SURGICAL PROCEDURE: abnormal uterine bleeding PREOP DIAGNOSIS: abnormal uterine bleeding PLANNED PROCEDURE: Operation Date: 08/04/23 07:00 Proposed Procedures p Hysteroscopy, endometrial sampling, possible endometrial polypectomy 01692 N93.9(Not Applicable) - Edmund Guido MD s Poss Poylpectomy(Not Applicable) - Edmund Guido MD s endometrial ablation with Novasure 97203(Not Applicable) - Edmund Guido MD 48 y.o. Normal and regular periods until age 40 y.o. Then periods irregular and heavy Bleeding can be so heavy she has to ?stay in bathroom for hours? + large clots No cramps Now scheduled for hysteroscopy, endometrial sampling, possible endometrial polypectomy; Mirena intrauterine device placement Medications/Allergies* Home Medications Medication Instructions Recorded Confirmed Type acetaminophen 650 mg 1,300 mg PO Q6H PRN Pain 11/25/21 08/03/23 History tablet,extended release lisinopril 20 mg tablet 20 mg PO DAILY 08/03/23 08/03/23 History simvastatin 40 mg tablet 40 mg PO DAILY 08/03/23 08/03/23 History Allergies/Adverse Reactions Allergy/AdvReac Type Severity Reaction Status Date / Time acetaminophen [From Vicodin] Allergy ADR-Vomitin Verified 07/27/23 09:58 g cephalexin [From Keflex] Allergy rash Verified 07/27/23 09:58 clindamycin Allergy shortness Verified 07/27/23 09:58 of breath hydrocodone [From Vicodin] Allergy ADR-Vomitin Verified 07/27/23 09:58 g hydromorphone Allergy ADR-Vomitin Verified 07/27/23 09:58 g levofloxacin [From Levaquin] Allergy ADR-Vomitin Verified 08/03/23 12:27 g Penicillins Allergy rash Verified 07/27/23 09:58 strawberry Allergy ALGY-Hives Verified 07/27/23 09:58 Pertinent History/Comorbid Conditions* Medical History (Updated 06/28/23 @ 09:46 by Vida Mayer DO) Skin lesion, infected Left-sided chest wall pain Type 2 diabetes mellitus, without long-term current use of insulin Benign essential HTN Colon polyps PCOS (polycystic ovarian syndrome) Arthritis of both knees Fatty liver Gallstone Irritable bowel syndrome with constipation and diarrhea Obesity Surgical History (Updated 09/01/20 @ 13:58 by Vida Mayer DO) History of laparoscopic cholecystectomy (~04/2020) History of tonsillectomy and adenoidectomy History of appendectomy (~2017) Family History (Updated 08/20/19 @ 09:53 by Holly Aguilar LPN) Diabetes CAD (coronary artery disease) Cancer Father colon Denies family history of Anesthesia complication Bleeding disorder Social History Smoking and tobacco/nicotine status: former use of tobacco/nicotine Alcohol intake: current Alcohol intake frequency: holidays/special occasions only Alcohol type: wine Substance/Drug Use: never Adopted: No Caregiver/support person: Yes Lives independently: Yes Household members: none Housing: Apartment Marital status: Single service: No Current occupational exposures/hazards: No Pets and animals: No Sexually active: No Do you think of yourself as: Straight/Heterosexual Current gender identity: Female Emmy/Mandaen: Jainism Special emmy needs: No Agree to transfusion: No Pertinent Exam Findings alert, oriented x 3, clear to auscultation bilaterally and regular rate & rhythm Pertinent Data Pelvic sono 04-21-23 uterus 10.6 x 5.8 x 6.8 cm Endometrium 3.2 cm, heterogeneous with cystic areas Normal ovaries Recommendations Surgery/Procedure today Coding Level of Care Code Acute Code for Chg Fwd Time Spent (min) 20
[2023-08-04 06:12] VITALS: BP 156/82; PULSE 79; RESP 18; TEMP 36.6; O2SAT 98; BMI 56.7
[2023-08-04 06:25] LABS: Glucose Point of Care 182 mg/dL (70-110)
[2023-08-04] MEDS: sodium chloride 0.9% 1,000 ML 30 ML IV (06:26)
[2023-08-04 06:50] LABS: OR HCG Qualitative Urine Negative (Negative)
--- NOTE | 2023-08-04 06:53 | W.PM.OPSUD ---
Surgery/Procedure H&P Update DATE OF PROCEDURE: August 04, 2023 DATE H&P PERFORMED: 07/27/23 H&P UPDATE INFORMATION: I have reviewed H&P completed within last 30 days, I have examined patient prior to procedure and No changes to prior documentation PREOP DIAGNOSIS: abnormal uterine bleeding PLANNED PROCEDURE: Operation Date: 08/04/23 07:00 Proposed Procedures p Hysteroscopy, endometrial sampling, possible endometrial polypectomy 89641 N93.9(Not Applicable) - Edmund Guido MD s Poss Poylpectomy(Not Applicable) - Edmund Guido MD s endometrial ablation with Novasure 37221(Not Applicable) - Edmund Guido MD
--- NOTE | 2023-08-04 07:36 | ANES.PREANE2 ---
Pre-Anesthetic Assessment Height/Weight: Height 1.55 m Weight 136.078 kg Temp Pulse Resp BP Pulse Ox O2 Del Method 97.9 F 79 18 156/82 98 Room Air 08/04/23 06:12 08/04/23 06:12 08/04/23 06:12 08/04/23 06:12 08/04/23 06:12 08/04/23 06:12 Preop Diagnosis: abnormal uterine bleeding Operation Date: 08/04/23 07:00 Proposed Procedures p Hysteroscopy, endometrial sampling, possible endometrial polypectomy 51027 N93.9(Not Applicable) - Edmund Guido MD s Poss Poylpectomy(Not Applicable) - Edmund Guido MD s endometrial ablation with Novasure 12928(Not Applicable) - Edmund Guido MD Familial anesthetic complications: H/O difficult intubation Was Beta [place] taken within 24 hours: N/A Was Clonidine taken within 24 hours: N/A Last intake: Intake Last Liquid Date 08/03/23 Last Liquid Time 23:00 Last Solid Date 08/03/23 Last Solid Time 19:00 Social No alcohol and No tobacco Exam alert, oriented x 3, clear to auscultation bilaterally and regular rate & rhythm Airway Submandibular: within normal limits Cervical ROM: Other (limited cervical extensioin) Mallampati: Class I Dentition: chipped (multiple caries) Comments: Comments: Patient describes anesthetic (gallbladder) in which she was told she was difficult to intubate. Small mouth opening. Pulmonary Exertional Dyspnea Metabolic Diabetes Mellitus, Hyperlipidemia and Morbid Obesity [facility] [place] Osteoarthritis/DJD Neuropsych Headache Anesthetic Plan ASA status: 3 Anesthesia: General Medications/Allergies Home Medications Medication Instructions Recorded Confirmed Last Taken Type acetaminophen 650 mg 1,300 mg PO Q6H PRN Pain 11/25/21 08/04/23 07/28/23 History tablet,extended release aspirin 81 mg tablet,delayed 81 mg PO DAILY #30 tabs 11/25/21 08/04/23 08/01/23 Rx release hydrochlorothiazide 25 mg tablet 25 mg PO DAILY@15 #30 tabs 03/24/23 08/04/23 08/02/23 Rx medroxyprogesterone 150 mg/mL 150 mg IM .q 3 months #1 mL 04/19/23 08/03/23 05/31/23 Rx intramuscular suspension (Depo-Provera) promethazine 25 mg tablet 25 mg PO TID PRN nausea and 06/28/23 08/04/23 Unknown Rx vomiting #10 tabs liraglutide 0.6 mg/0.1 mL (18 mg/3 1.8 mg (0.3 mL) SUBCUT DAILY #9 mL 07/05/23 08/03/23 08/02/23 21:30 Rx mL) subcutaneous pen injector (EasyPropertytoza 3-Jah) norethindrone 1 mg-ethinyl 1 tab PO DAILY #28 tabs 07/05/23 08/03/23 08/03/23 Rx estradiol 35 mcg tablet lisinopril 20 mg tablet 20 mg PO DAILY 08/03/23 08/04/23 08/02/23 History simvastatin 40 mg tablet 40 mg PO DAILY 08/03/23 08/03/23 Unknown History Allergies Allergy/AdvReac Type Severity Reaction Status Date / Time acetaminophen [From Vicodin] Allergy ADR-Vomitin Verified 08/04/23 06:05 g cephalexin [From Keflex] Allergy rash Verified 08/04/23 06:05 clindamycin Allergy shortness Verified 08/04/23 06:05 of breath hydrocodone [From Vicodin] Allergy ADR-Vomitin Verified 08/04/23 06:05 g hydromorphone Allergy ADR-Vomitin Verified 08/04/23 06:05 g levofloxacin [From Levaquin] Allergy ADR-Vomitin Verified 08/04/23 06:05 g Penicillins Allergy rash Verified 08/04/23 06:05 strawberry Allergy ALGY-Hives Verified 08/04/23 06:05 Current Medications Generic Name Dose Route Start Last Admin Trade Name Freq PRN Reason Stop Dose Admin Sodium Chloride 1,000 mls @ 30 mls/hr 08/04/23 06:00 08/04/23 06:26 Sodium Chloride 0.9% IV 08/05/23 05:59 30 mls/hr .Q24H CHENG Administration PFSH Anesthesia Medical History Skin lesion, infected Left-sided chest wall pain Type 2 diabetes mellitus, without long-term current use of insulin Benign essential HTN Colon polyps PCOS (polycystic ovarian syndrome) Arthritis of both knees Fatty liver Gallstone Irritable bowel syndrome with constipation and diarrhea Obesity Surgical History History of laparoscopic cholecystectomy (~04/2020) History of tonsillectomy and adenoidectomy History of appendectomy (~2017) Family History Father Cancer colon Other CAD (coronary artery disease) Diabetes Denies family history of Anesthesia complication Bleeding disorder Social History Smoking and tobacco/nicotine status: former use of tobacco/nicotine Alcohol intake: current Alcohol intake frequency: holidays/special occasions only Alcohol type: wine Substance/Drug Use: never Adopted: No Caregiver/support person: Yes Lives independently: Yes Household members: none Housing: Apartment Marital status: Single service: No Current occupational exposures/hazards: No Pets and animals: No Sexually active: No Do you think of yourself as: Straight/Heterosexual Current gender identity: Female Emmy/Mormon: Taoism Special emmy needs: No Agree to transfusion: No Data Anesthesia Cardiac Studies: No Data to Display
--- NOTE | 2023-08-04 07:44 | SUR.OPER ---
MIKE INSERTION LOT #[id number] EXP 2024/NOV
[2023-08-04 07:56] VITALS: BP 144/75; PULSE 102; RESP 16; TEMP 36.4; O2SAT 100
[2023-08-04 08:06] VITALS: BP 124/78; PULSE 81; RESP 18; O2SAT 100
[2023-08-04 08:13] VITALS: BP 115/71; PULSE 85; RESP 18; O2SAT 95
[2023-08-04 08:17] VITALS: BP 133/61; PULSE 84; RESP 16; TEMP 36.6; O2SAT 99
[2023-08-04 08:32] VITALS: BP 145/90; PULSE 92; RESP 17; O2SAT 100
--- NOTE | 2023-08-04 08:35 | PM.OP ---
Operative Report Date of procedure: August 04, 2023 Pre-op diagnosis: abnormal uterine bleeding, menorrhagia Post-op diagnosis: same Post-op findings: normal endometrial cavity No polyps / fibroids Minimal endometrial tissue Procedure done: hysteroscopy Curettage of uterus Placement of mirena IUD Implants: mirena intrauterine device Specimens removed/disposition: endometrial curettings Surgeon: Edmund Guido MD Anesthesia: MAC Estimated blood loss (mL): 0 Complications: none Findings: normal endometrial cavity No polyps / fibroids Minimal endometrial tissue Condition: stable Disposition: PACU Brief History: 48 y.o. with h/o extremely heavy and prolonged menstrual periods Procedure: Informed consent signed. Patient was taken to the operating room. Anesthesia was induced. Patient was placed in dorsolithotomy position, prepped and draped for hysteroscopy. A bivalve speculum was placed in the vagina. The anterior lip of the cervix was grasped with a sharp-toothed tenaculum. The cervix was serially dilated with Hegar dilators. . A hysteroscope was placed into the endometrial cavity. The endometrial cavity was seen to be normal. There were no polyps or fibroids. There was minimal endometrial tissue. The hysteroscope was then removed. Endometrial curettage was done with a sharp curette. Endometrial tissue was sent to pathology. The mirena IUD was then prepared, placed into the endometrial cavity and deployed. A 3-4 cm string was left at the cervical os. The sharp-toothed tenaculum was removed. There was no bleeding from the endometrial cavity or cervix. The patient was then placed supine and awakened and taken to the PACU. Postop condition: stable EBL: none Sponge and instruments counts were normal x 2 Complications: none
--- NOTE | 2023-08-04 14:18 | ANE.PACU2 ---
Inpatient post-anesthesia follow up: Airway intact: Yes Vital signs: Temperature 97.8 F Pulse Rate 92 Respiratory Rate 17 Blood Pressure 145/90 Pulse Oximetry 100 Oxygen Delivery Me thod Room Air Oxygen Flow Rate 8 Fraction of Inspir ed Oxygen Hydration adequate: Yes Nausea and vomiting: No Pain level: 2 Mental status: Baseline
== END 2023-08-04 08:48 | disposition home or self-care (01) ==
PROVIDERS: PCP Family Medicine; Visit Provider Obstetrics & Gynecology
PROC: 0UJD8ZZ Inspection of Uterus and Cervix, Via Natural or Artificial Opening Endoscopic (ICD-10-PCS; CPT 58555; principal; 2023-08-04 07:00)
PROC: (CPT 58300; 2023-08-04 07:00)
PROC: (CPT 58999; 2023-08-04 07:00)
DX: N93.9 Abnormal uterine and vaginal bleeding, unspecified (principal); N92.0 Excessive and frequent menstruation with regular cycle; Z30.430 Encounter for insertion of intrauterine contraceptive device; E11.9 Type 2 diabetes mellitus without complications; I10 Essential (primary) hypertension; E28.2 Polycystic ovarian syndrome; E66.01 Morbid (severe) obesity due to excess calories; Z68.43 Body mass index [BMI] 50.0-59.9, adult; E78.5 Hyperlipidemia, unspecified; Z87.891 Personal history of nicotine dependence
CPT/HCPCS: 58300; 58558; 36416; 82962; 84703; 88305; J1100; J1885; J2405; J2704; J7030

== ENCOUNTER → 2023-08-11 15:08 | Outpatient (BNVA) | payer OTHER, SELFPAY | PROVIDERS: PCP Family Medicine; Visit Provider Nurse Practitioner Women's Health | DX: N88.8 Other specified noninflammatory disorders of cervix uteri (principal); T83.84XA Pain due to genitourinary prosthetic devices, implants and grafts, initial encounter; X58.XXXA Exposure to other specified factors, initial encounter; Z98.890 Other specified postprocedural states | CPT/HCPCS: 76830 ==

== ENCOUNTER → 2023-10-21 08:49 | Outpatient (BNVA) | payer OTHER, SELFPAY | PROVIDERS: PCP Family Medicine; Visit Provider Family Medicine | DX: Z13.6 Encounter for screening for cardiovascular disorders (principal); E11.9 Type 2 diabetes mellitus without complications; D50.8 Other iron deficiency anemias | CPT/HCPCS: 80053; 82728; 83036; 83550; 85025 ==

== ENCOUNTER 2023-10-27 08:07 | Outpatient (CLI) | payer OTHER, SELFPAY ==
--- NOTE | 2023-10-27 08:30 | MM_ITS ---
WS: [id number] BILATERAL SCREENING DIGITAL TOMOSYNTHESIS MAMMOGRAM WITH CAD HISTORY: screening. COMPARISON: 10/08/2022 and 12/11/2018 Bilateral CC and MLO views with tomosynthesis and synthetic mammography submitted. Computer aided det ection analyzed. Breast composition: There are scattered areas of fibroglandular density. No suspicious masses, microc alcifications or architectural distortion. Numerous benign calcifications in each breast. MM/[place] [id number] IMPRESSION: BI-RADS: 2-Benign FOLLOW UP: 1 Year Follow-up
== END 2023-10-27 08:08 | disposition home or self-care (01) ==
LOC: RAD 08:08
PROVIDERS: PCP Family Medicine; Visit Provider Family Medicine
DX: Z12.31 Encounter for screening mammogram for malignant neoplasm of breast (principal); R92.323 Mammographic fibroglandular density, bilateral breasts; R92.1 Mammographic calcification found on diagnostic imaging of breast
CPT/HCPCS: 77063; 77067

== ENCOUNTER → 2024-06-04 14:08 | Outpatient (BNVA) | payer OTHER, SELFPAY | PROVIDERS: PCP Family Medicine Adult Medicine; Visit Provider Nurse Practitioner | DX: R39.9 Unspecified symptoms and signs involving the genitourinary system (principal); N30.01 Acute cystitis with hematuria | CPT/HCPCS: 81000; 87086 ==

== ENCOUNTER → 2024-07-11 07:14 | Outpatient (BNVA) | payer SELFPAY | PROVIDERS: PCP Family Medicine Adult Medicine | DX: R30.0 Dysuria (principal); N39.0 Urinary tract infection, site not specified | CPT/HCPCS: 81000 ==

== ENCOUNTER → 2024-09-06 07:31 | Outpatient (BNVA) | payer BC, SELFPAY | PROVIDERS: PCP Family Medicine; Visit Provider Family Medicine | DX: E11.9 Type 2 diabetes mellitus without complications (principal) | CPT/HCPCS: 80053; 80061; 82043; 83036; 85025 ==

== ENCOUNTER → 2025-02-28 09:28 | Outpatient (BNVA) | payer BC, SELFPAY | PROVIDERS: PCP Family Medicine; Visit Provider Family Medicine | DX: E11.9 Type 2 diabetes mellitus without complications (principal) | CPT/HCPCS: 80053; 83036 ==

== ENCOUNTER 2025-04-02 09:25 | Outpatient (RCR) | payer BC, SELFPAY | END 2025-04-05 23:59 | disposition home or self-care (01) | LOC: SPT 09:25 | PROVIDERS: PCP Family Medicine; Visit Provider Family Medicine | DX: M25.511 Pain in right shoulder (principal); M25.512 Pain in left shoulder | CPT/HCPCS: 97161 ==

== ENCOUNTER 2025-04-06 05:00 | Outpatient (RCR) | payer BC, SELFPAY | END 2025-05-05 23:59 | disposition home or self-care (01) | LOC: SPT 05:00 | PROVIDERS: PCP Family Medicine; Visit Provider Family Medicine | DX: M25.512 Pain in left shoulder (principal); M25.511 Pain in right shoulder | CPT/HCPCS: 97110; 97164 ==

== ENCOUNTER → 2025-06-04 08:19 | Outpatient (BNVA) | payer BC, SELFPAY | PROVIDERS: PCP Family Medicine; Visit Provider Family Medicine | DX: E11.9 Type 2 diabetes mellitus without complications (principal) | CPT/HCPCS: 80053; 83036 ==